=== PATIENT | male | born 1960 | race Caucasian/White ===

== ENCOUNTER 2016-05-18 02:21 | Emergency (ER) | payer OTHER ==
[~2016-05-18 02:21] MED LIST: AMANTADINE100 MG PO; ASPIRIN325 MG PO; BACLOFEN20 MG PO; CITALOPRAM HYDR10 MG PO; COUMADIN5 MG PO; DANTRIUM25 MG PO; DILAUDID8 MG PO; DITROPAN EQUIVAL5 MG PO; FLUOXETINE HCL20 MG PO; HYDROCHLOROTHIA25 MG PO; LEVOFLOXACIN250 MG PO; MACRODANTIN50 MG PO; METHADONE HCL10 MG PO; MORPHINE SULFAT30 M4 PO; MORPHINE SULFAT30 MG PO; MYCOSTATIN15 GM TOP; NAPROSYN250 MG PO; NAPROXEN250 MG PO; NEURONTIN100 MG PO; ZANAFLEX4 MG PO
--- NOTE | 2016-05-18 08:26 | ED CLINICAL REPORT ---
Clinical Report - Physicians/Mid Levels [facility] [address] 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 Arrived- By ambulance. Historian- patient and EMS personnel. HISTORY OF PRESENT ILLNESS Chief Complaint: Whole body pain/MS flare. This started yesterday about 24 hours ago and is still present. At its maximum, severity described as moderate. When seen in the E.D., severity described as moderate. Modifying factors. Not worsened by anything. Not relieved by anything. No current or associated symptoms. Similar symptoms previously: Many times. Recent medical care: Not recently seen/assessed. REVIEW OF SYSTEMS No fever, sore throat, sinus drainage, nasal congestion or cough. No difficulty breathing, chest pain, abdominal pain, nausea or vomiting. No diarrhea, black stools, bloody stools, chills or difficulty with urination. No skin rash, back pain, calf pain, headache or blackouts. No double vision. No difficulty with ambulation. All systems otherwise negative, except as recorded above. PAST HISTORY Problems: Suprapubic cath. Pulmonary Embolism. Hypertension. Yuen Catheter Replacement. Urinary Retention. Nephrolithiasis. Immunizations. Bowel Obstruction. Multiple Sclerosis. Additional Surgeries: Abdominal surgery to close a hole that had burrowed to his indwelling catheter. Appendectomy. Colonoscopy. Colostomy. Shoulder Surgery. Suprapubic cystostomy. Medications: Aspirin Oral (Tablet 325 mg) 1 tablet. Baclofen Oral 20 mg, every 5 hrs . Dantrolene Sodium Oral 50mg , 3 x daily. Dilaudid Oral (Tablet 8 mg), PRN. FLUoxetine HCl Oral 20 mg, daily. Mophine 30 mg, 3x a day. Neurontin Oral 800mg, BID. Nortriptyline HCl Oral. Oxybutynin Chloride Oral 5 mg, 3x a day. TiZANidine HCl Oral 4 mg, every 5 hrs. Allergies: Copaxone. Definite Severe(rash) Penicillins. Probable Moderate(rash) Pt/ state amoxicillin is okay; PCN allergy as baby.. Quinolones. SOCIAL HISTORY Never smoker. No alcohol use or drug use. ADDITIONAL NOTES The nursing notes have been reviewed. PHYSICAL EXAM Vital Signs: 05/18/2016 02:23 BP: 147/94. HR: 106. RR: 20. O2 saturation: 97%. Temp: 97.8 F. Pain level now: 02/23. Have been reviewed. Appearance: Alert. No acute distress. Eyes: Pupils equal, round and reactive to light. Eyes normal inspection. ENT: Nose normal. Neck: Normal inspection. CVS: Normal heart rate and rhythm. Heart sounds normal. Pulses normal. Respiratory: No respiratory distress. Breath sounds normal. Abdomen: No visible injury. Soft and nontender. (Colostomy site is intact.). Back: No CVA tenderness. Skin: Skin warm and dry. Normal skin color. No rash. Normal skin turgor. Extremities: No lower extremity edema. Neuro: (Grossly oriented.). LABS, X-RAYS, AND EKG Pulse Oximetry: 05/18/2016 02:23 O2 saturation: 97%. (FIO2 - room air). Interpretation: normal. PROGRESS AND PROCEDURES Course of Care: PT is well-known to our ED. He was treated with IV fluids, Dilaudid, fentanyl, Solu-medrol, and morphine for his pain. His blood pressure did drop somewhat after the pain medication, but pt's mentation remained clear, and he did respond to IV fluids. I did not find evidence of any other serious underlying condition. Patient counseled in person regarding the patient's stable condition, diagnosis and need for follow-up. Concerns were addressed. Old medical records reviewed. Disposition: Discharged. Condition: stable and improved. CLINICAL IMPRESSION Acute exacerbation of chronic neuralgia, secondary to MS. INSTRUCTIONS Warnings: GENERAL WARNINGS: Return or contact your physician immediately if your condition worsens or changes unexpectedly, if not improving as expected, or if other problems arise. Your Current Medications: CONTINUE TAKING THE FOLLOWING MEDICATIONS: Aspirin Oral : Tablet 325 mg, 1 tablet. Baclofen Oral : 20 mg every 5 hrs. Dantrolene Sodium Oral : 50mg 3 x daily. Dilaudid Oral : Tablet 8 mg, PRN. FLUoxetine HCl Oral : 20 mg daily. Mophine* : 30 mg 3x a day. Neurontin Oral : 800mg BID. Nortriptyline HCl Oral. Oxybutynin Chloride Oral : 5 mg 3x a day. TiZANidine HCl Oral : 4 mg every 5 hrs. Follow-up: Follow up with your doctor in two days if not better. Understanding of the discharge instructions verbalized by patient and family. (Electronically signed by Eleonora Dee MD 05/24/2016 21:40)
--- NOTE | 2016-05-18 08:26 | ED ORDER SUMMARY ---
..... 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 OrderSheet [facility] VisitID: [id number] [address] [place] [address] 55y, M Registration Date/Time: 05/18/2016 ORDER SHEET Weight: 77.1 kg (estimated) Allergies: Copaxone, Penicillins, Pt/ state amoxicillin is okay; PCN allergy as baby., Quinolones GENERAL ORDERS: MEDICATION ORDERS: IV FLUIDS: Dilaudid IV 1 mg (HIGH ALERT MEDICATION, NOW) (02:36 05/18/2016 Karma GOMEZ) (Ack 2:45 HSoule) (3:46 HSoule) Toradol IV 30 mg (NOW) (:36 05/18/2016 Karma GOMEZ) (Ack 2:45 HSoule) (3:46 HSoule) IV Saline Lock (02:36 05/18/2016 Karma GOMEZ) (Ack 2:45 HSoule) (3:45 HSoule) IV NS : initial bolus 500 mL (1000 mL/hr), then none - (NOW) (03:55 05/18/2016 Karma GOMEZ) (4:00 HSoule) Dilaudid IV 1 mg (HIGH ALERT MEDICATION, NOW) (03:56 05/18/2016 Karma GOMEZ) (4:01 HSoule) Fentanyl IV 100 mcg (HIGH ALERT MEDICATION, NOW) (05:09 05/18/2016 Karma GOMEZ) (Ack 5:11 HSoule) (5:32 HSoule) Morphine IV 10 mg (HIGH ALERT MEDICATION, NOW) (06:31 05/18/2016 Karma GOMEZ) (Ack 6:58 HSoule) (7:02 HSoule) Solu-MEDROL IV 125 mg (NOW) (06:32 05/18/2016 Karma GOMEZ) (Ack 6:58 HSoule) (7:02 HSoule) IV NS with Normal Saline 1 Liter: initial bolus none -, then 1000 mL/hr for X1 (NOW); Stat (07:11 05/18/2016 HSoule verbal order read back to Karma GOMEZ) (7:19 HSoule) ORDER SHEET NOTES: [Electronically signed by Suzie Concepcion R.N. (19:46 05/18/2016)] [Electronically signed by Eleonora Dee MD (21:40 05/24/2016)] [Electronically locked/signed by Suzie Concepcion R.N. (19:46 05/18/2016)]
--- NOTE | 2016-05-18 08:26 | ED NURSING NOTES ---
Clinical Report - Nurses Formerly [facility] [address] [place] [address] 05/18/2016 2:22 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 Triage time 02:May 18 2016. Acuity: LEVEL 3. Chief Complaint: (All over body pain, nausea). SEPSIS SCREEN: Sepsis Screen: negative. Negative (no infection suspected/documented). Heart rate greater than 90. MIGUEL COMA SCORE: Miguel Coma Scale: 15- eyes open spontaneously (4); best verbal response- oriented x 4 (5); best motor response- obeys commands (6). --02: Helen Tejada 02:23 05/18/16. BP: 147/94. HR: 106. RR: 20. O2 saturation: 97% on room air. Temp: 97.8 F (oral). Pain level now: 02/23. --02: Helen Tejada. Weight: 77.1 kg estimated. Height/Length: 70 inches Per Patient. BMI: 24.4. --02: Helen Tejada. Medications Aspirin Oral (Tablet 325 mg) 1 tablet. Baclofen Oral 20 mg, every 5 hrs . Dantrolene Sodium Oral 50mg , 3 x daily. Dilaudid Oral (Tablet 8 mg), PRN. FLUoxetine HCl Oral 20 mg, daily. Mophine 30 mg, 3x a day. Neurontin Oral 800mg, BID. Nortriptyline HCl Oral. Oxybutynin Chloride Oral 5 mg, 3x a day. TiZANidine HCl Oral 4 mg, every 5 hrs. --02:25 Helen Tejada. Allergies Copaxone. Definite Severe(rash) Penicillins. Probable Moderate(rash) Pt/ state amoxicillin is okay; PCN allergy as baby.. Quinolones. --02:25 Helen Tejada. Medication/allergy information source: the patient. --02: Helen Tejada. History Arrived by EMS. Historian: EMS and patient. This started yesterday. ( Patient states that since yesterday he began having all over body pain. He reports some nausea and states he has not been able to sleep. Patient has a history of MS and is bed bound.). PAST MEDICAL HX: Immunizations: up-to-date. SOCIAL HX: Never smoker. No alcohol use or drug use. No infectious disease exposure. ABUSE ASSESSMENT: No report of abuse. FALL RISK ASSESSMENT: Fall risk assessment completed. No fall risk identified. NUTRITIONAL RISK ASSESSMENT: The nutritional risk assessment revealed no deficiencies. FUNCTIONAL ASSESSMENT: Functional assessment: no impairments noted. LEARNING NEEDS ASSESSMENT: The learning needs assessment revealed no barriers. SKIN INTEGRITY ASSESSMENT: Skin integrity risk assessment completed. No skin integrity risk identified. --02:27 Helen Tejada. PROBLEMS: Suprapubic cath. Hypotension. Dehydration. Acute Pain. Pulmonary Embolism. Hypertension. Yuen Catheter Replacement. Hypokalemia. Leukocytosis. Nephrolithiasis. Vomiting. UTI - Urinary Tract Infection. Bowel Obstruction. Multiple Sclerosis. --:28 Helen Tejada. ADDITIONAL SURGERIES: Abdominal surgery to close a hole that had burrowed to his indwelling catheter. Appendectomy. Colonoscopy. Colostomy. Shoulder Surgery. Suprapubic cystostomy. --:28 Helen Tejada. Interventions ID band on patient. To treatment room. --: Helen Tejada. PHYSICAL ASSESSMENT To room via stretcher. GENERAL / NEURO / PSYCH: Alert. Oriented X 4. Appears in pain. HEENT: Mucous membranes are pink. RESPIRATORY: Respirations not labored. CVS: Cardiac rhythm: sinus tachycardia. GI / : Abdomen soft and nontender. SKIN: Skin is warm and dry. --:28 Helen Tejada. NURSING PROGRESS NOTES Pulse oximeter and NIBP monitor placed on patient; monitor alarms on. Patient gowned. Warming measures: blanket applied. Reassurance given to the patient. Two patient identifiers checked. Call light placed in reach. Side rails up x 1. Bed placed in lowest position. Brakes of bed on. Patient ready for evaluation- chart flagged. --:29 Helen Tejada 03:11 05/18/2016 Two (2) unsuccessful IV access attempts including the right antecubital space and hand. Applied bandaid. --03:21 Helen Tejada ( IV access attempted but unsuccessful. Charge nurse at bedside attempting IV access.). --03:23 Helen Tejada 03:28 05/18/2016 One (1) unsuccessful IV access attempt including the left hand. --03:32 Shayla Clayton R.N. 03:30 05/18/2016 Site #1 started via IV in the right hand with an 22g angiocath; one attempt. Blood drawn. Saline lock flushed with 10 mL saline (red top blood tube drawn at time of IV start). --03:32 Shayla Clayton R.N. 03:36 05/18/2016 Dilaudid (HYDROmorphone HCl PF) IVP 1 mg given over 1 minute(s) via site #1. Allergies verified, confirmed 5 rights and sedative warning given to the patient. IV patency established. IV site checked: no pain, redness, or swelling. IV flushed thoroughly pre- and post-medication administration. IVP given by RN. --03:46 Helen Tejada 03:36 05/18/2016 Toradol IVP 30 mg given over 1 minute(s) via site #1. Allergies verified and confirmed 5 rights. IV patency established. IV site checked: no pain, redness, or swelling. IV flushed thoroughly pre- and post-medication administration. IVP given by RN. --03:46 Helen Tejada ( Patient states he is still in pain. Provider notified.). --03:50 Helen Tejada 03:50 05/18/16. BP: 156/99. HR: 105. RR: 18. O2 saturation: 97% on room air. Pain level now: 910. --03:54 Heeln Tejada 04:00 05/18/2016 Started bag #1 1000 mL IV Fluids IV NS (Saline); at 1000 mL/hr over 30 minute(s) via site #1 via IV pump. Allergies verified and confirmed 5 rights. IV patency established. IV site checked: no pain, redness, or swelling. IV flushed thoroughly pre- and post-medication administration. --04:00 Helen Tejada 04:01 05/18/2016 Dilaudid (HYDROmorphone HCl PF) IVP 1 mg given over 1 minute(s) via site #1. Allergies verified, confirmed 5 rights and sedative warning given to the patient. IV patency established. IV site checked: no pain, redness, or swelling. IV flushed thoroughly pre- and post-medication administration. IVP given by RN. --04:01 Helen Tejada ( pt in bed states that pain has improved but is still present.). --04:36 Rob Richardson R.N. 05:02 05/18/16. BP: 146/93. HR: 94. RR: 20. O2 saturation: 97% on room air. Pain level now: 12/24. --05:02 Helen Tejada 04:30 05/18/2016 IV Fluids IV NS Discontinued: bag #1 discontinued. Total amount infused: 500 mL. IV patency established. IV site checked: no pain, redness, or swelling. IV flushed thoroughly. --06:58 Helen Tejada 05:22 05/18/2016 Fentanyl IVP 100 mcg given over 1 minute(s) via site #1. Allergies verified, confirmed 5 rights and sedative warning given to the patient. IV patency established. IV site checked: no pain, redness, or swelling. IV flushed thoroughly pre- and post-medication administration. IVP given by RN. --05:32 Helen Tejada 07:02 05/18/2016 Morphine IVP 10 mg given over 1 minute(s) via site #1. Allergies verified, confirmed 5 rights and sedative warning given to the patient. IV patency established. IV site checked: no pain, redness, or swelling. IV flushed thoroughly pre- and post-medication administration. IVP given by RN. --07:02 Helen Tejada 07:02 05/18/2016 SOLU-MEDROL (MethylPREDNISolone Sodium Succ) IVP 125 mg given over 1 minute(s) via site #1. Allergies verified and confirmed 5 rights. IV patency established. IV site checked: no pain, redness, or swelling. IV flushed thoroughly pre- and post-medication administration. IVP given by RN. --07:02 Helen Tejada 07:03 05/18/16. BP: 60/46. HR: 93. RR: 18. O2 saturation: 96% on room air. Pain level now: 10/24. Additional comments: Provider notifed, fluids started. Patient is talking and states he feels better. . --07:08 Helen Tejada 07:08 05/18/16. BP: 67/43. --07:08 Helen Tejada 07:10 05/18/16. BP: 67/53. HR: 86. RR: 20. O2 saturation: 99% on nasal cannula at 2 liters/minute. Pain level now: 09/23. --07:10 Helen Tejada 06:45 05/18/16. ( Patient ostomy bag leaking, patient cleaned up and linens changed. Patient skin cleansed and new ostomy bag and seal placed.). --07:15 Helen Tejada 07:15 05/18/16. BP: 80/53. HR: 86. RR: 20. O2 saturation: 98% on room air. --07:16 Helen Tejada RESPIRATORY: No respiratory distress. SKIN: Skin is warm and dry. ( Provider at bedside, patient stable). --07:17 Helen Tejada 07:17 05/18/16. BP: 87/61. HR: 90. RR: 20. O2 saturation: 98%. --07:18 Helen Tejada 07:19 05/18/2016 Started bag #1 1000 mL IV Fluids IV NS (Saline); at 1000 mL/hr over 1 hour(s) via site #1 via IV pump. Allergies verified and confirmed 5 rights. IV patency established. IV site checked: no pain, redness, or swelling. IV flushed thoroughly pre- and post-medication administration. --07:19 Helen Tejada 07:29 05/18/16. BP: 82/52. HR: 82. RR: 20. O2 saturation: 98% on nasal cannula at 2 liters/minute. Pain level now: 08/24. --07:30 Helen Tejada Care transferred and report given (Suzie Dunn). --07:39 Helen Tejada 07:40 05/18/16. BP: 82/54. HR: 87. RR: 20. O2 saturation: 97% on nasal cannula at 2 liters/minute. --07:40 Helen Tejada ( Provider aware of vitals. Patient receiving fluids. Patient alert and talking.). --07:40 Helen Tejada 08:16 05/18/16. BP: 78/51. HR: 88. RR: 18. O2 saturation: 100% on nasal cannula at 3 liters/minute. Pain level now: 07/24. --08:17 Suzie Concepcion R.N. 08:17 05/18/2016 IV Fluids IV NS Discontinued: bag #1 infused. Total amount infused: 1000 mL. IV patency established. IV site checked: no pain, redness, or swelling. IV flushed thoroughly. --08:17 Suzie Concepcion R.N. 08:18 05/18/2016 Started bag #1 1000 mL IV Fluids IV NS (Saline); at 999 mL/hr over 1 hour(s) via site #1 via IV pump. Allergies verified and confirmed 5 rights. IV patency established. IV site checked: no pain, redness, or swelling. IV flushed thoroughly pre- and post-medication administration. --08:18 Suzie Concepcion R.N. 08:19 05/18/16. RESPIRATORY: Denies difficulty breathing. No respiratory distress. SKIN: Skin is warm and dry. Skin color within normal limits. ( Pt asking for ice cream..). --08:19 Suzie Concepcion R.N. 08:54 05/18/16. BP: 93/53. HR: 81. RR: 16. O2 saturation: 98% on nasal cannula at 2 liters/minute. --08:55 Suzie Concepcion R.N. 10:30 05/18/2016 Site #1 removed upon discharge. Catheter intact. Manual pressure and bandage applied. --19:46 Suzie Concepcion R.N. 10:30 05/18/2016 IV Fluids IV NS Discontinued: bag #2 infused upon discharge. Total amount infused: 1000 mL. IV patency established. IV site checked: no pain, redness, or swelling. IV flushed thoroughly. --19:45 Suzie Concepcion R.N. DISPOSITION / DISCHARGE 10:23 05/18/16. BP: 103/67. HR: 80. RR: 16. O2 saturation: 96% on nasal cannula. Temp: 98 F (oral). --10:24 Suzie Concepcion R.N. Departure time: 1035May 18 2016. Condition at departure: improved and stable. No learning barriers present. Discharge instructions provided and reviewed with the patient. Patient verbalized understanding. Written instructions provided in [place]an. The patient was discharged by the physician. He was discharged home. He left the Emergency Department via private vehicle and on a stretcher. --19:45 Suzie Concepcion R.N. Locked/Released at 05/18/2016 19:46 by Suzie Concepcion R.N.
--- NOTE | 2016-05-18 08:26 | ED ORDER SUMMARY ---
..... 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 OrderSheet [facility] VisitID: [id number] [address] [place] [address] 55y, M Registration Date/Time: 05/18/2016 ORDER SHEET Weight: 77.1 kg (estimated) Allergies: Copaxone, Penicillins, Pt/ state amoxicillin is okay; PCN allergy as baby., Quinolones GENERAL ORDERS: MEDICATION ORDERS: IV FLUIDS: Dilaudid IV 1 mg (HIGH ALERT MEDICATION, NOW) (02:36 05/18/2016 Karma GOMEZ) (Ack 2:45 HSoule) (3:46 HSoule) Toradol IV 30 mg (NOW) (:36 05/18/2016 Karma GOMEZ) (Ack 2:45 HSoule) (3:46 HSoule) IV Saline Lock (02:36 05/18/2016 Karma GOMEZ) (Ack 2:45 HSoule) (3:45 HSoule) IV NS : initial bolus 500 mL (1000 mL/hr), then none - (NOW) (03:55 05/18/2016 Karma GOMEZ) (4:00 HSoule) Dilaudid IV 1 mg (HIGH ALERT MEDICATION, NOW) (03:56 05/18/2016 Karma GOMEZ) (4:01 HSoule) Fentanyl IV 100 mcg (HIGH ALERT MEDICATION, NOW) (05:09 05/18/2016 Karma GOMEZ) (Ack 5:11 HSoule) (5:32 HSoule) Morphine IV 10 mg (HIGH ALERT MEDICATION, NOW) (06:31 05/18/2016 Karma GOMEZ) (Ack 6:58 HSoule) (7:02 HSoule) Solu-MEDROL IV 125 mg (NOW) (06:32 05/18/2016 Karma GOMEZ) (Ack 6:58 HSoule) (7:02 HSoule) IV NS with Normal Saline 1 Liter: initial bolus none -, then 1000 mL/hr for X1 (NOW); Stat (07:11 05/18/2016 HSoule verbal order read back to Karma GOMEZ) (7:19 HSoule) ORDER SHEET NOTES: [Electronically signed by Suzie Concepcion R.N. (19:46 05/18/2016)] [Electronically signed by Eleonora Dee MD (21:40 05/24/2016)] [Electronically locked/signed by Suzie Concepcion R.N. (19:46 05/18/2016)]
--- NOTE | 2016-05-24 21:40 | ED MAR SUMMARY ---
..... Medication Administration Record [facility] [address] [place] [address] 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 Visit ID: [id number] 55y, M Weight: 77.1 kg Height/Length: 70 in BMI: 24.4 ALLERGIES: Copaxone, Penicillins, Pt/ state amoxicillin is okay; PCN allergy as baby., Quinolones Given 03:36 05/18/2016 Helen Tejada, Medication Administered: DILAUDID [IVP] (HYDROMORPHONE HCL PF), Dose: 1 mg IVP over 1 minute(s), Site: #1 right hand. Medication Ordered: Dilaudid IV 1 mg (HIGH ALERT MEDICATION, NOW). Given 03:36 05/18/2016 Helen Tejada, Medication Administered: TORADOL [IVP], Dose: 30 mg IVP over 1 minute(s), Site: #1 right hand. Medication Ordered: Toradol IV 30 mg (NOW). Start 04:00 05/18/2016 Helen Tejada,, Stop 04:30 05/18/2016 Helen Tejada, Medication Administered: IV NS (SALINE), Dose: IV Fluids over 30 minute(s), Rate: 1000 mL/hr, Dispensed: 1000 mL bag, Site: #1 right hand. Medication Ordered: IV NS : initial bolus 500 mL (1000 mL/hr), then none - (NOW). Given 04:05/18/2016 Helen Tejada, Medication Administered: DILAUDID [IVP] (HYDROMORPHONE HCL PF), Dose: 1 mg IVP over 1 minute(s), Site: #1 right hand. Medication Ordered: Dilaudid IV 1 mg (HIGH ALERT MEDICATION, NOW). Given 05:22 05/18/2016 Helen Tejada, Medication Administered: FENTANYL [IVP], Dose: 100 mcg IVP over 1 minute(s), Site: #1 right hand. Medication Ordered: Fentanyl IV 100 mcg (HIGH ALERT MEDICATION, NOW). Given 07:05/18/2016 Helen Tejada, Medication Administered: MORPHINE [IVP], Dose: 10 mg IVP over 1 minute(s), Site: #1 right hand. Medication Ordered: Morphine IV 10 mg (HIGH ALERT MEDICATION, NOW). Given 07:02 05/18/2016 Helen Tejada, Medication Administered: SOLU-MEDROL [IVP] (METHYLPREDNISOLONE SODIUM SUCC), Dose: 125 mg IVP over 1 minute(s), Site: #1 right hand. Medication Ordered: Solu-MEDROL IV 125 mg (NOW). Start 07:19 05/18/2016 Helen Tejada,, Stop 08:17 05/18/2016 Suzie Concepcion, R.N. Medication Administered: IV NS (SALINE), Dose: IV Fluids over 1 hour(s), Rate: 1000 mL/hr, Dispensed: 1000 mL bag, Site: #1 right hand. Medication Ordered: IV NS with Normal Saline 1 Liter: initial bolus none -, then 1000 mL/hr for X1 (NOW); Stat. Start 08:18 05/18/2016 Suzie Concepcion, R.N., Stop 10:30 05/18/2016 Suzie Concepcion, R.N. Medication Administered: IV NS (SALINE), Dose: IV Fluids over 1 hour(s), Rate: 999 mL/hr, Dispensed: 1000 mL bag, Site: #1 right hand. Medication Ordered: IV NS with Normal Saline 1 Liter: initial bolus none -, then 1000 mL/hr for X1 (NOW); Stat.
--- NOTE | 2016-05-24 21:40 | ED MED RECONCILIATION SUMMARY ---
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 Medication Reconciliation Report [facility] VisitID: [id number] [address] [place] [address] 55y, M Registration Date/Time: 05/18/2016 Weight: 77.1 kg Height/Length: 70 in. BMI: 24.4 ALLERGIES: Copaxone, Penicillins, Pt/ state amoxicillin is okay; PCN allergy as baby., Quinolones The patient's Home Medications are listed below: CONTINUE TAKING THE FOLLOWING MEDICATIONS: Aspirin Oral (325 mg) 1 tablet Baclofen Oral 20 mg, every 5 hrs Dantrolene Sodium Oral 50mg , 3 x daily Dilaudid Oral (8 mg), PRN FLUoxetine HCl Oral 20 mg, daily Mophine 30 mg, 3x a day Neurontin Oral 800mg, BID Nortriptyline HCl Oral Oxybutynin Chloride Oral 5 mg, 3x a day TiZANidine HCl Oral 4 mg, every 5 hrs The source(s) of the original Home Medication information: patient The following Medications were given to the patient in the Emergency Department: Dilaudid [IVP] IVP 1 mg, administered: 05/18/2016 3:36:00 AM Toradol [IVP] IVP 30 mg, administered: 05/18/2016 3:36:00 AM IV NS IV Fluids bolus 0, then 1000 mL/hr, administered: 05/18/2016 4:00:00 AM Dilaudid [IVP] IVP 1 mg, administered: 05/18/2016 4:01:00 AM Fentanyl [IVP] IVP 100 mcg, administered: 05/18/2016 5:22:00 AM Morphine [IVP] IVP 10 mg, administered: 05/18/2016 7:02:00 AM SOLU-MEDROL [IVP] IVP 125 mg, administered: 05/18/2016 7:02:00 AM IV NS IV Fluids bolus 0, then 1000 mL/hr, administered: 05/18/2016 7:19:00 AM IV NS IV Fluids bolus 0, then 999 mL/hr, administered: 05/18/2016 8:18:00 AM The following Medications were prescribed to the patient: None.
--- NOTE | 2016-05-24 21:40 | ED MAR SUMMARY ---
..... Medication Administration Record [facility] [address] 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 Medication Ordered: Dilaudid IV 1 mg (HIGH ALERT MEDICATION, NOW). Given 03:36 05/18/2016 Helen Tejada, Medication Administered: TORADOL [IVP], Dose: 30 mg IVP over 1 minute(s), Site: #1 right hand. Medication Ordered: Toradol IV 30 mg (NOW). Start 04:00 05/18/2016 Helen Tejada,, Stop 04:30 05/18/2016 Helen Tejada, Medication Administered: IV NS (SALINE), Dose: IV Fluids over 30 minute(s), Rate: 1000 mL/hr, Dispensed: 1000 mL bag, Site: #1 right hand. Medication Ordered: IV NS : initial bolus 500 mL (1000 mL/hr), then none - (NOW). Given 04:05/18/2016 Helen Tejada, Medication Administered: DILAUDID [IVP] (HYDROMORPHONE HCL PF), Dose: 1 mg IVP over 1 minute(s), Site: #1 right hand. Medication Ordered: Dilaudid IV 1 mg (HIGH ALERT MEDICATION, NOW). Given 05:22 05/18/2016 Helen Tejada, Medication Administered: FENTANYL [IVP], Dose: 100 mcg IVP over 1 minute(s), Site: #1 right hand. Medication Ordered: Fentanyl IV 100 mcg (HIGH ALERT MEDICATION, NOW). Given 07:05/18/2016 Helen Tejada, Medication Administered: MORPHINE [IVP], Dose: 10 mg IVP over 1 minute(s), Site: #1 right hand. Medication Ordered: Morphine IV 10 mg (HIGH ALERT MEDICATION, NOW). Given 07:02 05/18/2016 Helen Tejada, Medication Administered: SOLU-MEDROL [IVP] (METHYLPREDNISOLONE SODIUM SUCC), Dose: 125 mg IVP over 1 minute(s), Site: #1 right hand. Medication Ordered: Solu-MEDROL IV 125 mg (NOW). Start 07:19 05/18/2016 Helen Tejada,, Stop 08:17 05/18/2016 Suzie Concepcion, R.N. Medication Administered: IV NS (SALINE), Dose: IV Fluids over 1 hour(s), Rate: 1000 mL/hr, Dispensed: 1000 mL bag, Site: #1 right hand. Medication Ordered: IV NS with Normal Saline 1 Liter: initial bolus none -, then 1000 mL/hr for X1 (NOW); Stat. Start 08:18 05/18/2016 Suzie Concepcion, R.N., Stop 10:30 05/18/2016 Suzie Concepcion, R.N. Medication Administered: IV NS (SALINE), Dose: IV Fluids over 1 hour(s), Rate: 999 mL/hr, Dispensed: 1000 mL bag, Site: #1 right hand. Medication Ordered: IV NS with Normal Saline 1 Liter: initial bolus none -, then 1000 mL/hr for X1 (NOW); Stat.
--- NOTE | 2016-05-24 21:40 | ED DISCHARGE INSTRUCTIONS ---
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 General Instructions [facility] VisitID: [id number] [address] [place] [address] 55y, M Registration Date/Time: 05/18/2016 Acute exacerbation of chronic neuralgia, secondary to MS. INSTRUCTIONS Warnings: GENERAL WARNINGS: Return or contact your physician immediately if your condition worsens or changes unexpectedly, if not improving as expected, or if other problems arise. Your Current Medications: CONTINUE TAKING THE FOLLOWING MEDICATIONS: Aspirin Oral : Tablet 325 mg, 1 tablet. Baclofen Oral : 20 mg every 5 hrs. Dantrolene Sodium Oral : 50mg 3 x daily. Dilaudid Oral : Tablet 8 mg, PRN. FLUoxetine HCl Oral : 20 mg daily. Mophine* : 30 mg 3x a day. Neurontin Oral : 800mg BID. Nortriptyline HCl Oral. Oxybutynin Chloride Oral : 5 mg 3x a day. TiZANidine HCl Oral : 4 mg every 5 hrs. Follow-up: Follow up with your doctor in two days if not better. Understanding of the discharge instructions verbalized by patient and family. (Electronically signed by Eleonora Dee MD 05/24/2016 21:40)
--- NOTE | 2016-05-24 21:40 | ED MED RECONCILIATION SUMMARY ---
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 Medication Reconciliation Report [facility] VisitID: [id number] [address] [place] [address] 55y, M Registration Date/Time: 05/18/2016 Weight: 77.1 kg Height/Length: 70 in. BMI: 24.4 ALLERGIES: Copaxone, Penicillins, Pt/ state amoxicillin is okay; PCN allergy as baby., Quinolones The patient's Home Medications are listed below: CONTINUE TAKING THE FOLLOWING MEDICATIONS: Aspirin Oral (325 mg) 1 tablet Baclofen Oral 20 mg, every 5 hrs Dantrolene Sodium Oral 50mg , 3 x daily Dilaudid Oral (8 mg), PRN FLUoxetine HCl Oral 20 mg, daily Mophine 30 mg, 3x a day Neurontin Oral 800mg, BID Nortriptyline HCl Oral Oxybutynin Chloride Oral 5 mg, 3x a day TiZANidine HCl Oral 4 mg, every 5 hrs The source(s) of the original Home Medication information: patient The following Medications were given to the patient in the Emergency Department: Dilaudid [IVP] IVP 1 mg, administered: 05/18/2016 3:36:00 AM Toradol [IVP] IVP 30 mg, administered: 05/18/2016 3:36:00 AM IV NS IV Fluids bolus 0, then 1000 mL/hr, administered: 05/18/2016 4:00:00 AM Dilaudid [IVP] IVP 1 mg, administered: 05/18/2016 4:01:00 AM Fentanyl [IVP] IVP 100 mcg, administered: 05/18/2016 5:22:00 AM Morphine [IVP] IVP 10 mg, administered: 05/18/2016 7:02:00 AM SOLU-MEDROL [IVP] IVP 125 mg, administered: 05/18/2016 7:02:00 AM IV NS IV Fluids bolus 0, then 1000 mL/hr, administered: 05/18/2016 7:19:00 AM IV NS IV Fluids bolus 0, then 999 mL/hr, administered: 05/18/2016 8:18:00 AM The following Medications were prescribed to the patient: None.
--- NOTE | 2016-05-24 21:40 | ED DISCHARGE INSTRUCTIONS ---
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 General Instructions [facility] VisitID: [id number] [address] [place] [address] 55y, M Registration Date/Time: 05/18/2016 Acute exacerbation of chronic neuralgia, secondary to MS. INSTRUCTIONS Warnings: GENERAL WARNINGS: Return or contact your physician immediately if your condition worsens or changes unexpectedly, if not improving as expected, or if other problems arise. Your Current Medications: CONTINUE TAKING THE FOLLOWING MEDICATIONS: Aspirin Oral : Tablet 325 mg, 1 tablet. Baclofen Oral : 20 mg every 5 hrs. Dantrolene Sodium Oral : 50mg 3 x daily. Dilaudid Oral : Tablet 8 mg, PRN. FLUoxetine HCl Oral : 20 mg daily. Mophine* : 30 mg 3x a day. Neurontin Oral : 800mg BID. Nortriptyline HCl Oral. Oxybutynin Chloride Oral : 5 mg 3x a day. TiZANidine HCl Oral : 4 mg every 5 hrs. Follow-up: Follow up with your doctor in two days if not better. Understanding of the discharge instructions verbalized by patient and family. (Electronically signed by Eleonora Dee MD 05/24/2016 21:40)
== END 2016-05-18 10:30 | disposition home or self-care (01) ==
LOC: ED SRH 02:21
DX: M79.2 Neuralgia and neuritis, unspecified (principal); G35 Multiple sclerosis; I10 Essential (primary) hypertension; Z79.899 Other long term (current) drug therapy; Z88.0 Allergy status to penicillin; Z88.8 Allergy status to other drugs, medicaments and biological substances

== ENCOUNTER 2016-07-26 13:12 | Emergency (ER) | payer OTHER ==
--- NOTE | 2016-07-26 16:36 | DIAGNOSTIC IMAGING REPORT ---
PROCEDURE: ABDOMEN/PELVIS WITH CONTRAST CLINICAL INDICATION: ABDOMINAL PAIN TECHNIQUE: 125 ml of Isovue 300 were injected intravenously and axial images were obtained of the abdomen and pelvis with sagittal and coronal reformations. COMPARISON: Multiple prior studies including the most recent from 03/30/2016. FINDINGS: ABDOMEN: Mild bibasilar atelectasis. Normal sized heart. No hiatal hernia. The liver, gallbladder, adrenal glands, kidneys, pancreas and spleen are stable. Tiny dependent gallstones, small duodenal diverticulum, fatty replaced pancreas, cortical cyst in the left kidney. Air fluid levels in the stomach. Right abdominal ileostomy without small bowel obstruction. Status post colectomy. The abdominal aorta is normal in its course and caliber. Minor atherosclerosis. There are no suspicious calcifications, retroperitoneal adenopathy or masses. No free fluid or inflammation. PELVIS: Suprapubic catheter present. Small amount of irregular linear subcutaneous thickening in the midline and extending left lateral to the suprapubic catheter tract suggestive of prior fistula tract. Similar appearance and extent compared to the previous study. The pelvic small bowel loops are normal. No adenopathy, free fluid, or pelvic mass. Chronic compression fracture of T12 and L1. Sacroiliac joint ankylosis. Diffuse muscular atrophy. IMPRESSION: 1. No acute process. 2. Stable surgical changes of colectomy with ileostomy, suprapubic catheter, and anterior subcutaneous suprapubic fistulectomy. 3. Cholelithiasis. 4. Findings called to the emergency room. All CT scans at this facility use dose modulation, iterative reconstruction, and/or weight-based dosing when appropriate to reduce radiation dose to as low as reasonably achievable.
--- NOTE | 2016-07-26 17:47 | ED ORDER SUMMARY ---
..... 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 OrderSheet [facility] VisitID: [id number] [place] [address] 56y, M Registration Date/Time: 07/26/2016 ORDER SHEET Weight: 73.0 kg (stated) Allergies: Copaxone, Penicillins, Pt/ state amoxicillin is okay; PCN allergy as baby., Quinolones GENERAL ORDERS: CT Abd/Pel w Cont (No) (pending) Urgent (14:02 07/26/2016 Valentina GOMEZ) (Ack 14:05 Lavelle) (15:57 LSullivan R.N.) CBC w Diff Urgent (14:02 07/26/2016 Valentina GOMEZ) (Ack 14:05 Lavelle) (14:05 LSullivan R.N.) CMP Urgent (14:07/26/2016 Valentina GOMEZ) (Ack 14:05 Lavelle) (14:06 LSullivan R.N.) Amylase Urgent (14:02 07/26/2016 Valentina GOMEZ) (Ack 14:05 Lavelle) (14:06 LSullivan R.N.) Lipase Urgent (14:02 07/26/2016 Valentina GOMEZ) (Ack 14:05 Lavelle) (14:06 LSullivan R.N.) MEDICATION ORDERS: IV FLUIDS: IV Saline Lock (13:53 07/26/2016 LSullivan R.N. per protocol) (13:54 LSullivan R.N.) IV NS : initial bolus none -, then 250 mL/hr for 4h (NOW); Routine (14:02 07/26/2016 Valentina GOMEZ) (14:14 LSullivan R.N.) Dilaudid IV 0.5 mg (NOW) (14:02 07/26/2016 Valentina GOMEZ) (14:15 LSullivan R.N.) Zofran IV 4 mg (NOW) (14:02 07/26/2016 Valentina GOMEZ) (14:15 LSullivan R.N.) ORDER SHEET NOTES: [Electronically signed by Sara Manuel R.N. (19:07/26/2016)] [Electronically signed by Angel Grimes MD (07:38 07/30/2016)] [Electronically locked/signed by Sara Manuel R.N. (:07/26/2016)]
--- NOTE | 2016-07-26 17:47 | ED NURSING NOTES ---
Clinical Report - [facility] [address] [place] [address] 07/26/2016 13:12 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 TRIAGE Triage time 13:23. Acuity: LEVEL 3. Chief Complaint: ABDOMINAL PAIN and (RLQ). Alert. SEPSIS SCREEN: Sepsis Screen. Negative (no infection suspected/documented). --13:27 Sara Manuel R.N. 13:21 07/26/16. BP: 161/99. HR: 103. RR: 18. O2 saturation: 99%. Temp: 98.7 F. Pain level now: 12/24. --13:27 Sara Manuel R.N. Weight: 73 kg stated. Height/Length: 70 inches Per Patient. BMI: 23.1. --13:23 Sara Manuel R.N. Medications Aspirin Oral (Tablet 325 mg) 1 tablet. Baclofen Oral 20 mg, every 5 hrs . Dantrolene Sodium Oral 50mg , 3 x daily. Dilaudid Oral (Tablet 8 mg), PRN. FLUoxetine HCl Oral 20 mg, daily. Neurontin Oral 800mg, BID. Nortriptyline HCl Oral. Oxybutynin Chloride Oral 5 mg, 3x a day. TiZANidine HCl Oral 4 mg, every 5 hrs. --13:21 Sara Manuel R.N. Morphine Sulfate Oral 30 mg ER, 3x a day. --13:22 Sara Manuel R.N. Allergies Copaxone. Definite Severe(rash) Penicillins. Probable Moderate(rash) Pt/ state amoxicillin is okay; PCN allergy as baby.. Quinolones. --13:21 Sara Manuel R.N. History Arrived by EMS. Historian: patient. Primary physician (Titus). This started just prior to arrival and today. Treatment [employer]: (Dilaudid 8 mg). SOCIAL HX: Smoker- current status unknown. No alcohol use or drug use. The patient was exposed to MRSA. FUNCTIONAL ASSESSMENT: Functional assessment performed: uses wheelchair and is bed-ridden- this mobility impairment is an ongoing problem. --13:27 Sara Manuel R.N. PROBLEMS: Pharyngitis. Suprapubic cath. Hypotension. Nausea. Dehydration. Acute Pain. Pulmonary Embolism. Hypertension. Yuen Catheter Replacement. Hypokalemia. Leukocytosis. Wound Dehiscence. Urinary Retention. Nephrolithiasis. Vomiting. UTI - Urinary Tract Infection. Abdominal Pain. Bowel Obstruction. Multiple Sclerosis. --13:25 Sara Manuel R.N. ADDITIONAL SURGERIES: Abdominal surgery to close a hole that had burrowed to his indwelling catheter. Appendectomy. Colonoscopy. Colostomy. Shoulder Surgery. Suprapubic cystostomy. --13:26 Sara Manuel R.N. Interventions ID band on patient. To room. --13:27 Sara Manuel R.N. PHYSICAL ASSESSMENT 13:07/26/16. GENERAL / NEURO / PSYCH: Alert. Oriented X 4. Appears in pain. --13:27 Sara Manuel R.N. NURSING PROGRESS NOTES 13:07/26/16. Patient identifiers checked. Call light placed in reach. Bed placed in lowest position. Patient ready for evaluation- chart flagged. --13:27 Sara Manuel R.N. 13:44 07/26/2016 Site #1 started via IV in the right hand with an 22g angiocath, with aseptic technique and good blood return; one attempt. Blood drawn: rainbow set. Labeled in the presence of the patient and sent to the lab. Saline lock flushed with 10 mL saline. --13:54 Sara Manuel R.N. 14:12 07/26/2016 Zofran (Ondansetron HCl) IVP 4 mg given over 2 minute(s) via site #1. Allergies verified and confirmed 5 rights. --14:15 Sara Manuel R.N. 14:14 07/26/2016 Started bag #1 1000 mL IV Fluids IV NS (Saline); at 250 mL/hr via site #1 via IV pump. Confirmed 5 rights. --14:14 Sara Manuel R.N. 14:15 07/26/2016 Dilaudid (HYDROmorphone HCl PF) IVP 0.5 mg given over 1 minute(s) via site #1. Confirmed 5 rights and sedative warning given. --14:15 Sara Manuel R.N. 15:57 07/26/2016 Dilaudid (HYDROmorphone HCl PF) IVP 0.5 mg given over 1 minute(s) via site #1. (verbal order from ERMD to repeat dose). --15:57 Sara Manuel R.N. 17:45 07/26/2016 IV Fluids IV NS Discontinued: bag #1 infused. Total amount infused: 1000 mL. IV patency established. IV site checked: no pain, redness, or swelling. IV flushed thoroughly. --18:10 Sara Manuel R.N. 18:10 07/26/2016 Site #1 removed upon discharge. Catheter intact. Bandage applied. --18:10 Sara Manuel R.N. DISPOSITION / DISCHARGE 18:09 07/26/16. Condition at departure: improved. No learning barriers present. Discharge instructions provided and reviewed with the patient. Reviewed medication(s) information. Prescription(s) given to the patient. Reviewed referral to family practice for followup. Patient verbalized understanding. Written instructions provided. ( Called pt's at home, she is expecting pt to arrive by ambulance. ETA for ambulance is approximately 7pm.). --18:09 Sara Manuel R.N. 18:07 07/26/16. BP: 134/89. HR: 113. RR: 18. O2 saturation: 98%. Temp: 98.5 F. Pain level now: 08/24. --18:09 Sara Manuel R.N. 18:50. Transported via ambulance by transport team. --18:59 Sara Manuel R.N. Locked/Released at 07/26/2016 19:00 by Sara Manuel R.N.
--- NOTE | 2016-07-26 17:47 | ED ORDER SUMMARY ---
..... 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 OrderSheet [facility] VisitID: [id number] [place] [address] 56y, M Registration Date/Time: 07/26/2016 ORDER SHEET Weight: 73.0 kg (stated) Allergies: Copaxone, Penicillins, Pt/ state amoxicillin is okay; PCN allergy as baby., Quinolones GENERAL ORDERS: CT Abd/Pel w Cont (No) (pending) Urgent (14:02 07/26/2016 Valentina GOMEZ) (Ack 14:05 Lavelle) (15:57 LSullivan R.N.) CBC w Diff Urgent (14:02 07/26/2016 Valentina GOMEZ) (Ack 14:05 Lavelle) (14:05 LSullivan R.N.) CMP Urgent (14:07/26/2016 Valentina GOMEZ) (Ack 14:05 Lavelle) (14:06 LSullivan R.N.) Amylase Urgent (14:02 07/26/2016 Valentina GOMEZ) (Ack 14:05 Lavelle) (14:06 LSullivan R.N.) Lipase Urgent (14:02 07/26/2016 Valentina GOMEZ) (Ack 14:05 Lavelle) (14:06 LSullivan R.N.) MEDICATION ORDERS: IV FLUIDS: IV Saline Lock (13:53 07/26/2016 LSullivan R.N. per protocol) (13:54 LSullivan R.N.) IV NS : initial bolus none -, then 250 mL/hr for 4h (NOW); Routine (14:02 07/26/2016 Valentina GOMEZ) (14:14 LSullivan R.N.) Dilaudid IV 0.5 mg (NOW) (14:02 07/26/2016 Valentina GOMEZ) (14:15 LSullivan R.N.) Zofran IV 4 mg (NOW) (14:02 07/26/2016 Valentina GOMEZ) (14:15 LSullivan R.N.) ORDER SHEET NOTES: [Electronically signed by Sara Manuel R.N. (19:07/26/2016)] [Electronically signed by Angel Grimes MD (07:38 07/30/2016)] [Electronically locked/signed by Sara Manuel R.N. (:07/26/2016)]
--- NOTE | 2016-07-26 17:47 | ED NURSING NOTES ---
Clinical Report - Nurses [facility] [address] [place] [address] 07/26/2016 13:12 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 TRIAGE Triage time 13:23. Acuity: LEVEL 3. Chief Complaint: ABDOMINAL PAIN and (RLQ). Alert. SEPSIS SCREEN: Sepsis Screen. Negative (no infection suspected/documented). --13:27 Sara Manuel R.N. 13:21 07/26/16. BP: 161/99. HR: 103. RR: 18. O2 saturation: 99%. Temp: 98.7 F. Pain level now: 12/24. --13:27 Sara Manuel R.N. Weight: 73 kg stated. Height/Length: 70 inches Per Patient. BMI: 23.1. --13:23 Sara Manuel R.N. Medications Aspirin Oral (Tablet 325 mg) 1 tablet. Baclofen Oral 20 mg, every 5 hrs . Dantrolene Sodium Oral 50mg , 3 x daily. Dilaudid Oral (Tablet 8 mg), PRN. FLUoxetine HCl Oral 20 mg, daily. Neurontin Oral 800mg, BID. Nortriptyline HCl Oral. Oxybutynin Chloride Oral 5 mg, 3x a day. TiZANidine HCl Oral 4 mg, every 5 hrs. --13:21 Sara Manuel R.N. Morphine Sulfate Oral 30 mg ER, 3x a day. --13:22 Sara Manuel R.N. Allergies Copaxone. Definite Severe(rash) Penicillins. Probable Moderate(rash) Pt/ state amoxicillin is okay; PCN allergy as baby.. Quinolones. --13:21 Sara Manuel R.N. History Arrived by EMS. Historian: patient. Primary physician (Titus). This started just prior to arrival and today. Treatment [employer]: (Dilaudid 8 mg). SOCIAL HX: Smoker- current status unknown. No alcohol use or drug use. The patient was exposed to MRSA. FUNCTIONAL ASSESSMENT: Functional assessment performed: uses wheelchair and is bed-ridden- this mobility impairment is an ongoing problem. --13:27 Sara Manuel R.N. PROBLEMS: Pharyngitis. Suprapubic cath. Hypotension. Nausea. Dehydration. Acute Pain. Pulmonary Embolism. Hypertension. Yuen Catheter Replacement. Hypokalemia. Leukocytosis. Wound Dehiscence. Urinary Retention. Nephrolithiasis. Vomiting. UTI - Urinary Tract Infection. Abdominal Pain. Bowel Obstruction. Multiple Sclerosis. --13:25 Sara Manuel R.N. ADDITIONAL SURGERIES: Abdominal surgery to close a hole that had burrowed to his indwelling catheter. Appendectomy. Colonoscopy. Colostomy. Shoulder Surgery. Suprapubic cystostomy. --13:26 Sara Manuel R.N. Interventions ID band on patient. To room. --13:27 Sara Manuel R.N. PHYSICAL ASSESSMENT 13:07/26/16. GENERAL / NEURO / PSYCH: Alert. Oriented X 4. Appears in pain. --13:27 Sara Manuel R.N. NURSING PROGRESS NOTES 13:07/26/16. Patient identifiers checked. Call light placed in reach. Bed placed in lowest position. Patient ready for evaluation- chart flagged. --13:27 Sara Manuel R.N. 13:44 07/26/2016 Site #1 started via IV in the right hand with an 22g angiocath, with aseptic technique and good blood return; one attempt. Blood drawn: rainbow set. Labeled in the presence of the patient and sent to the lab. Saline lock flushed with 10 mL saline. --13:54 Sara Manuel R.N. 14:12 07/26/2016 Zofran (Ondansetron HCl) IVP 4 mg given over 2 minute(s) via site #1. Allergies verified and confirmed 5 rights. --14:15 Sara Manuel R.N. 14:14 07/26/2016 Started bag #1 1000 mL IV Fluids IV NS (Saline); at 250 mL/hr via site #1 via IV pump. Confirmed 5 rights. --14:14 Sara Manuel R.N. 14:15 07/26/2016 Dilaudid (HYDROmorphone HCl PF) IVP 0.5 mg given over 1 minute(s) via site #1. Confirmed 5 rights and sedative warning given. --14:15 Sara Manuel R.N. 15:57 07/26/2016 Dilaudid (HYDROmorphone HCl PF) IVP 0.5 mg given over 1 minute(s) via site #1. (verbal order from ERMD to repeat dose). --15:57 Sara Manuel R.N. 17:45 07/26/2016 IV Fluids IV NS Discontinued: bag #1 infused. Total amount infused: 1000 mL. IV patency established. IV site checked: no pain, redness, or swelling. IV flushed thoroughly. --18:10 Sara Manuel R.N. 18:10 07/26/2016 Site #1 removed upon discharge. Catheter intact. Bandage applied. --18:10 Sara Manuel R.N. DISPOSITION / DISCHARGE 18:09 07/26/16. Condition at departure: improved. No learning barriers present. Discharge instructions provided and reviewed with the patient. Reviewed medication(s) information. Prescription(s) given to the patient. Reviewed referral to family practice for followup. Patient verbalized understanding. Written instructions provided. ( Called pt's at home, she is expecting pt to arrive by ambulance. ETA for ambulance is approximately 7pm.). --18:09 Sara Manuel R.N. 18:07 07/26/16. BP: 134/89. HR: 113. RR: 18. O2 saturation: 98%. Temp: 98.5 F. Pain level now: 08/24. --18:09 Sara Manuel R.N. 18:50. Transported via ambulance by transport team. --18:59 Sara Manuel R.N. Locked/Released at 07/26/2016 19:00 by Sara Manuel R.N.
--- NOTE | 2016-07-26 17:47 | ED CLINICAL REPORT ---
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 Arrived- By private vehicle. Historian- patient. CPT: ER phys charges level 4 (#[id number]). HISTORY OF PRESENT ILLNESS Chief Complaint: ABDOMINAL PAIN. At its maximum, severity described as moderate. When seen in the E.D., severity described as mild. Modifying factors. Not worsened by anything. Not relieved by anything. It is described as "pain" and it is described as located in the right lower quadrant. This started today and is still present. No nausea, vomiting or diarrhea. He has had loss of appetite. No recent travel. Similar symptoms previously: None. Recent medical care: Not recently seen/assessed. REVIEW OF SYSTEMS No constipation, black stools, hematemesis, difficulty with urination or pain with urination. No urinary frequency, fever, sore throat, chest pain or difficulty breathing. No cough, joint pain, skin rash, chills or back pain. All systems otherwise negative, except as recorded above. PAST HISTORY Pharyngitis. Suprapubic cath. Hypotension. Nausea. Dehydration. Acute Pain. Pulmonary Embolism. Hypertension. Yuen Catheter Replacement. Hypokalemia. Leukocytosis. Wound Dehiscence. Urinary Retention. Nephrolithiasis. Vomiting. UTI - Urinary Tract Infection. Abdominal Pain. Bowel Obstruction. Multiple Sclerosis. ADDITIONAL SURGERIES: Abdominal surgery to close a hole that had burrowed to his indwelling catheter. Appendectomy. Colonoscopy. Colostomy. Shoulder Surgery. Suprapubic cystostomy. Medications: Morphine Sulfate Oral 30 mg ER, 3x a day. Aspirin Oral (Tablet 325 mg) 1 tablet. Baclofen Oral 20 mg, every 5 hrs . Dantrolene Sodium Oral 50mg , 3 x daily. Dilaudid Oral (Tablet 8 mg), PRN. FLUoxetine HCl Oral 20 mg, daily. Neurontin Oral 800mg, BID. Nortriptyline HCl Oral. Oxybutynin Chloride Oral 5 mg, 3x a day. TiZANidine HCl Oral 4 mg, every 5 hrs. Allergies: Copaxone. Definite Severe(rash) Penicillins. Probable Moderate(rash) Pt/ state amoxicillin is okay; PCN allergy as baby.. Quinolones. SOCIAL HISTORY No alcohol use or drug use. ADDITIONAL NOTES The nursing notes have been reviewed. PHYSICAL EXAM Vital Signs: 07/26/2016 13:21 BP: 161/99. HR: 103. RR: 18. O2 saturation: 99%. Temp: 98.7 F. Pain level now: 8/10. Appearance: Alert. No acute distress. Eyes: Eyes normal inspection. ENT: Pharynx normal. Neck: Normal inspection. CVS: Normal heart rate and rhythm. Heart sounds normal. Pulses normal. Respiratory: No respiratory distress. Breath sounds normal. Chest nontender. Abdomen: Soft. Mild tenderness in the right lower quadrant. Bowel sounds normal. No mass. Back: Normal inspection. No CVA tenderness. Skin: Normal skin color. No rash. Extremities: Extremities exhibit normal ROM. Neuro: Oriented X 3. LABS, X-RAYS, AND EKG Abdominal CT: No diverticulitis. No acute findings. Stones in the GB: no inflammation. Epiploic appendage superior to ostomy. Abdominal CT performed with IV contrast. The study was independently viewed by me, interpreted by the radiologist and discussed with the radiologist. Laboratory Tests: CBC w Diff: (KIT: 07/26/2016 13:35) ( MsgRcvd 07/26/2016 15:38) Final results Test Result Flag Units (Reference) WHITE BLOOD COUNT 11.7 H K/uL (4.5-11.5) RED BLOOD COUNT 6.37 *H M/uL (4.50-5.90) HEMOGLOBIN 17.2 gm/dL (13.5-17.5) HEMATOCRIT 51.6 % (41.0-53.0) MEAN CELL VOLUME 81 fL (80-100) MEAN CORPUSCULAR HGB 27 pg (26-34) MEAN CORPUSCULAR HGB CONC 33 g/dL (31-37) RED CELL DISTRIBUTION WIDTH 15.9 H % (11.6-14.8) PLATELET COUNT 310 K/uL (150-400) NEUTROPHIL % 84.4 H % (50-75) LYMPH % 9.5 L % (25-40) MONO % 4.7 % (3-14) EOSINOPHIL % 0.6 % (0-4) BASOPHIL % 0.8 % (0-2) RBC MORPHOLOGY 1+ ERYTHROCYTOSIS~~1+ ANISOCYTOSIS CMP: (KIT: 07/26/2016 13:35) ( MsgRcvd 07/26/2016 14:21) Final results Test Result Flag Units (Reference) GLUCOSE 115 H mg/dL (70-110) BUN 17 mg/dL (7-18) CREATININE 0.6 mg/dL (0.6-1.3) Estimated GFR >60 mL/min Estimated GFR- >60 mL/min Note: Persistent reduction over 3 months in eGFR<60 mL/min/1.73 m2 defines CKD. Patients with eGFR values>=60 mL/min/1.73 m2 may also have CKD if evidence ofpersistent proteinuria. Additional information may be foundat www.[email or web address].org. SODIUM 140 mmol/L (136-145) POTASSIUM 3.8 mmol/L (3.5-5.1) CHLORIDE 103 mmol/L (98-107) CARBON DIOXIDE 27 mmol/L (21-32) CALCIUM 9.1 mg/dL (8.5-10.1) TOTAL PROTEIN 7.4 g/dL (6.4-8.2) ALBUMIN 3.6 g/dL (3.3-5.0) BILIRUBIN, TOTAL 0.7 mg/dL (0.0-1.0) ALKALINE PHOSPHATASE 88 U/L (46-116) AST (SGOT) 18 U/L (15-37) ALT (SGPT) 15 U/L (12-78) LIPASE 98 U/L (73-393) AMYLASE 49 U/L (25-115) . PROGRESS AND PROCEDURES Course of Care: IV NS Zofran 4 mg IV Dilauidid 0.5 mg IV Patient is stable. Symptoms better. Patient/family counseled. Disposition: Discharged. Condition: stable. CLINICAL IMPRESSION Acute periumbilical and right lower quadrant abdominal pain of unknown cause. INSTRUCTIONS Drink plenty of fluids. Warnings: Further evaluation is necessary. GENERAL WARNINGS: Return or contact your physician immediately if your condition worsens or changes unexpectedly, if not improving as expected, or if other problems arise. Your Current Medications: CONTINUE TAKING THE FOLLOWING MEDICATIONS: Aspirin Oral : Tablet 325 mg, 1 tablet. Baclofen Oral : 20 mg every 5 hrs. Dantrolene Sodium Oral : 50mg 3 x daily. Dilaudid Oral : Tablet 8 mg, PRN. FLUoxetine HCl Oral : 20 mg daily. Morphine Sulfate Oral : 30 mg ER 3x a day. Neurontin Oral : 800mg BID. Nortriptyline HCl Oral. Oxybutynin Chloride Oral : 5 mg 3x a day. TiZANidine HCl Oral : 4 mg every 5 hrs. Prescription Medications: Zofran (orally disintegrating tablets) 4 mg: take 1 orally every 6 hours as needed for nausea. Dispense ten (10). No refill. Substitution is permissible. Dilaudid 2 mg: take 1 tablet orally every 8 hours as needed for pain. Dispense ten (10). No refill. Substitution is permissible. Follow-up: Follow up with your doctor in two days. Call for the next available appointment. Understanding of the discharge instructions verbalized by patient. (Electronically signed by Angel Grimes MD 07/30/2016 7:38)
--- NOTE | 2016-07-30 07:38 | ED DISCHARGE INSTRUCTIONS ---
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 INSTRUCTIONS Drink plenty of fluids. Warnings: Further evaluation is necessary. GENERAL WARNINGS: Return or contact your physician immediately if your condition worsens or changes unexpectedly, if not improving as expected, or if other problems arise. Your Current Medications: CONTINUE TAKING THE FOLLOWING MEDICATIONS: Aspirin Oral : Tablet 325 mg, 1 tablet. Baclofen Oral : 20 mg every 5 hrs. Dantrolene Sodium Oral : 50mg 3 x daily. Dilaudid Oral : Tablet 8 mg, PRN. FLUoxetine HCl Oral : 20 mg daily. Morphine Sulfate Oral : 30 mg ER 3x a day. Neurontin Oral : 800mg BID. Nortriptyline HCl Oral. Oxybutynin Chloride Oral : 5 mg 3x a day. TiZANidine HCl Oral : 4 mg every 5 hrs. Prescription Medications: Zofran (orally disintegrating tablets) 4 mg: take 1 orally every 6 hours as needed for nausea. Dispense ten (10). No refill. Substitution is permissible. Dilaudid 2 mg: take 1 tablet orally every 8 hours as needed for pain. Dispense ten (10). No refill. Substitution is permissible. Follow-up: Follow up with your doctor in two days. Call for the next available appointment. Understanding of the discharge instructions verbalized by patient. ADDITIONAL INFORMATION Ondansetron Oral disintegrating tablet What is this medicine? ONDANSETRON (on DEONTE se syed) is used to treat nausea and vomiting caused by chemotherapy. It is also used to prevent or treat nausea and vomiting after surgery. How should I use this medicine? These tablets are made to dissolve in the mouth. Do not try to push the tablet through the foil backing. With dry hands, peel away the foil backing and gently remove the tablet. Place the tablet in the mouth and allow it to dissolve, then swallow. While you may take these tablets with water, it is not necessary to do so. Talk to your boat designer regarding the use of this medicine in children. Special care may be needed. What side effects may I notice from receiving this medicine? Side effects that you should report to your doctor or health home care giver as soon as possible: allergic reactions like skin rash, itching or hives, swelling of the face, lips, or tongue breathing problems dizziness fast or irregular heartbeat feeling faint or lightheaded, falls fever and chills swelling of the hands and feet tightness in the chest Side effects that usually do not require medical attention (report to your doctor or health home care giver if they continue or are bothersome): constipation or diarrhea headache What may interact with this medicine? Do not take this medicine with any of the following medications: -apomorphine -cisapride -dofetilide -dronedarone -pimozide -thioridazine -ziprasidone This medicine may also interact with the following medications: -carbamazepine -phenytoin -rifampicin -tramadol -other medicines that prolong the QT interval (cause an abnormal heart rhythm) What if I miss a dose? If you miss a dose, take it as soon as you can. If it is almost time for your next dose, take only that dose. Do not take double or extra doses. Where should I keep my medicine? Keep out of the reach of children. Store between 2 and 30 degrees C (36 and 86 degrees F). Throw away any unused medicine after the expiration date. What should I tell my health care provider before I take this medicine? They need to know if you have any of these conditions: heart disease history of irregular heartbeat liver disease low levels of magnesium or potassium in the blood an unusual or allergic reaction to ondansetron, granisetron, other medicines, foods, dyes, or preservatives or trying to get breast-feeding What should I watch for while using this medicine? Check with your doctor or health home care giver as soon as you can if you have any sign of an allergic reaction. Hydromorphone Hydrochloride Oral tablet What is this medicine? HYDROMORPHONE (cody droe MOR fone) is a pain reliever. It is used to treat moderate to severe pain. How should I use this medicine? Take this medicine by mouth with a glass of water. If the medicine upsets your stomach, take it with food or milk. Follow the directions on the prescription label. Do not take more medicine than you are told to take. Talk to your boat designer regarding the use of this medicine in children. Special care may be needed. What side effects may I notice from receiving this medicine? Side effects that you should report to your doctor or health home care giver as soon as possible: allergic reactions like skin rash, itching or hives, swelling of the face, lips, or tongue breathing problems changes in vision confusion feeling faint or lightheaded, falls seizures slow or fast heartbeat trouble passing urine or change in the amount of urine trouble with balance, talking, walking Side effects that usually do not require medical attention (report to your doctor or health home care giver if they continue or are bothersome): difficulty sleeping drowsiness dry mouth flushing headache itching loss of appetite nausea, vomiting What may interact with this medicine? alcohol antihistamines for allergy, cough and cold medicines for anesthesia medicines for depression, anxiety, or psychotic disturbances medicines for sleep muscle relaxants naltrexone narcotic medicines (opiates) for pain phenothiazines like chlorpromazine, mesoridazine, prochlorperazine, thioridazine tramadol What if I miss a dose? If you miss a dose, take it as soon as you can. If it is almost time for your next dose, take only that dose. Do not take double or extra doses. Where should I keep my medicine? Keep out of the reach of children. This medicine can be abused. Keep your medicine in a safe place to protect it from theft. Do not share this medicine with anyone. Selling or giving away this medicine is dangerous and against the law. Store at room temperature between 15 and 30 degrees C (59 and 86 degrees F). Keep container tightly closed. Protect from light. Discard unused medicine and used packaging carefully. Pets and children can be harmed if they find used or lost packages. Flush any unused medicines down the toilet. Do not use the medicine after the expiration date. What should I tell my health care provider before I take this medicine? They need to know if you have any of these conditions: brain tumor drug abuse or addiction head injury heart disease frequently drink alcohol containing drinks kidney disease or problems going to the bathroom liver disease lung disease, asthma, or breathing problems mental problems an allergic or unusual reaction to lactose, hydromorphone, other opioid analgesics, other medicines, sulfites, foods, dyes, or preservatives or trying to get breast-feeding What should I watch for while using this medicine? Tell your doctor or health home care giver if your pain does not go away, if it gets worse, or if you have new or a different type of pain. You may develop tolerance to the medicine. Tolerance means that you will need a higher dose of the medicine for pain relief. Tolerance is normal and is expected if you take this medicine for a long time. Do not suddenly stop taking your medicine because you may develop a severe reaction. Your body becomes used to the medicine. This does NOT mean you are addicted. Addiction is a behavior related to getting and using a drug for a non-medical reason. If you have pain, you have a medical reason to take pain medicine. Your doctor will tell you how much medicine to take. If your doctor wants you to stop the medicine, the dose will be slowly lowered over time to avoid any side effects. You may get drowsy or dizzy. Do not drive, use machinery, or do anything that needs mental alertness until you know how this medicine affects you. Do not stand or sit up quickly, especially if you are an older patient. This reduces the risk of dizzy or fainting spells. Alcohol may interfere with the effect of this medicine. Avoid alcoholic drinks. There are different types of narcotic medicines (opiates) for pain. If you take more than one type at the same time, you may have more side effects. Give your health care provider a list of all medicines you use. Your doctor will tell you how much medicine to take. Do not take more medicine than directed. Call emergency for help if you have problems breathing. This medicine will cause constipation. Try to have a bowel movement at least every 2 to 3 days. If you do not have a bowel movement for 3 days, call your doctor or health home care giver. Your mouth may get dry. Chewing sugarless gum or sucking hard candy, and drinking plenty of water may help. Contact your doctor if the problem does not go away or is severe. You have been given the following additional information: Ondansetron Oral disintegrating tablet Hydromorphone Hydrochloride Oral tablet (Electronically signed by Angel Grimes MD 07/30/2016 7:38)
--- NOTE | 2016-07-30 07:38 | ED MAR SUMMARY ---
..... Medication Administration Record [facility] [address] 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 Medication Administered: ZOFRAN [IVP] (ONDANSETRON HCL), Dose: 4 mg IVP over 2 minute(s), Site: #1 right hand. Medication Ordered: Zofran IV 4 mg (NOW). Start 14:14 07/26/2016 Sara Manuel R.N., Stop 17:45 07/26/2016 Sara Manuel R.N. Medication Administered: IV NS (SALINE), Dose: IV Fluids, Rate: 250 mL/hr, Dispensed: 1000 mL bag, Site: #1 right hand. Medication Ordered: IV NS : initial bolus none -, then 250 mL/hr for 4h (NOW); Routine. Given 14:15 07/26/2016 Sara Manuel R.N. Medication Administered: DILAUDID [IVP] (HYDROMORPHONE HCL PF), Dose: 0.5 mg IVP over 1 minute(s), Site: #1 right hand. Medication Ordered: Dilaudid IV 0.5 mg (NOW). Given 15:57 07/26/2016 Sara Manuel R.N. Medication Administered: DILAUDID [IVP] (HYDROMORPHONE HCL PF), Dose: 0.5 mg IVP over 1 minute(s), Site: #1 right hand. Medication Ordered: Dilaudid IV 0.5 mg (NOW).
--- NOTE | 2016-07-30 07:38 | ED MED RECONCILIATION SUMMARY ---
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 BMI: 23.1 ALLERGIES: Copaxone, Penicillins, Pt/ state amoxicillin is okay; PCN allergy as baby., Quinolones The patient's Home Medications are listed below: CONTINUE TAKING THE FOLLOWING MEDICATIONS: Aspirin Oral (325 mg) 1 tablet Baclofen Oral 20 mg, every 5 hrs Dantrolene Sodium Oral 50mg , 3 x daily Dilaudid Oral (8 mg), PRN FLUoxetine HCl Oral 20 mg, daily Morphine Sulfate Oral 30 mg ER, 3x a day Neurontin Oral 800mg, BID Nortriptyline HCl Oral Oxybutynin Chloride Oral 5 mg, 3x a day TiZANidine HCl Oral 4 mg, every 5 hrs The source(s) of the original Home Medication information: Not obtained. The following Medications were given to the patient in the Emergency Department: IV NS IV Fluids bolus 0, then 250 mL/hr, administered: 07/26/2016 2:14:00 PM Zofran [IVP] IVP 4 mg, administered: 07/26/2016 2:12:00 PM Dilaudid [IVP] IVP 0.5 mg, administered: 07/26/2016 2:15:00 PM Dilaudid [IVP] IVP 0.5 mg, administered: 07/26/2016 3:57:00 PM The following Medications were prescribed to the patient: Zofran (orally disintegrating tablets) 4 mg: take 1 orally every 6 hours as needed for nausea. Dispense ten (10). No refill. Substitution is permissible. -- Angel Grimes MD Dilaudid 2 mg: take 1 tablet orally every 8 hours as needed for pain. Dispense ten (10). No refill. Substitution is permissible. -- Angel Grimes MD
--- NOTE | 2016-07-30 07:38 | ED DISCHARGE INSTRUCTIONS ---
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 INSTRUCTIONS Drink plenty of fluids. Warnings: Further evaluation is necessary. GENERAL WARNINGS: Return or contact your physician immediately if your condition worsens or changes unexpectedly, if not improving as expected, or if other problems arise. Your Current Medications: CONTINUE TAKING THE FOLLOWING MEDICATIONS: Aspirin Oral : Tablet 325 mg, 1 tablet. Baclofen Oral : 20 mg every 5 hrs. Dantrolene Sodium Oral : 50mg 3 x daily. Dilaudid Oral : Tablet 8 mg, PRN. FLUoxetine HCl Oral : 20 mg daily. Morphine Sulfate Oral : 30 mg ER 3x a day. Neurontin Oral : 800mg BID. Nortriptyline HCl Oral. Oxybutynin Chloride Oral : 5 mg 3x a day. TiZANidine HCl Oral : 4 mg every 5 hrs. Prescription Medications: Zofran (orally disintegrating tablets) 4 mg: take 1 orally every 6 hours as needed for nausea. Dispense ten (10). No refill. Substitution is permissible. Dilaudid 2 mg: take 1 tablet orally every 8 hours as needed for pain. Dispense ten (10). No refill. Substitution is permissible. Follow-up: Follow up with your doctor in two days. Call for the next available appointment. Understanding of the discharge instructions verbalized by patient. ADDITIONAL INFORMATION Ondansetron Oral disintegrating tablet What is this medicine? ONDANSETRON (on DEONTE se syed) is used to treat nausea and vomiting caused by chemotherapy. It is also used to prevent or treat nausea and vomiting after surgery. How should I use this medicine? These tablets are made to dissolve in the mouth. Do not try to push the tablet through the foil backing. With dry hands, peel away the foil backing and gently remove the tablet. Place the tablet in the mouth and allow it to dissolve, then swallow. While you may take these tablets with water, it is not necessary to do so. Talk to your supervisor sample regarding the use of this medicine in children. Special care may be needed. What side effects may I notice from receiving this medicine? Side effects that you should report to your doctor or health respiratory care technician as soon as possible: allergic reactions like skin rash, itching or hives, swelling of the face, lips, or tongue breathing problems dizziness fast or irregular heartbeat feeling faint or lightheaded, falls fever and chills swelling of the hands and feet tightness in the chest Side effects that usually do not require medical attention (report to your doctor or health respiratory care technician if they continue or are bothersome): constipation or diarrhea headache What may interact with this medicine? Do not take this medicine with any of the following medications: -apomorphine -cisapride -dofetilide -dronedarone -pimozide -thioridazine -ziprasidone This medicine may also interact with the following medications: -carbamazepine -phenytoin -rifampicin -tramadol -other medicines that prolong the QT interval (cause an abnormal heart rhythm) What if I miss a dose? If you miss a dose, take it as soon as you can. If it is almost time for your next dose, take only that dose. Do not take double or extra doses. Where should I keep my medicine? Keep out of the reach of children. Store between 2 and 30 degrees C (36 and 86 degrees F). Throw away any unused medicine after the expiration date. What should I tell my health care provider before I take this medicine? They need to know if you have any of these conditions: heart disease history of irregular heartbeat liver disease low levels of magnesium or potassium in the blood an unusual or allergic reaction to ondansetron, granisetron, other medicines, foods, dyes, or preservatives or trying to get breast-feeding What should I watch for while using this medicine? Check with your doctor or health respiratory care technician as soon as you can if you have any sign of an allergic reaction. Hydromorphone Hydrochloride Oral tablet What is this medicine? HYDROMORPHONE (cody droe MOR fone) is a pain reliever. It is used to treat moderate to severe pain. How should I use this medicine? Take this medicine by mouth with a glass of water. If the medicine upsets your stomach, take it with food or milk. Follow the directions on the prescription label. Do not take more medicine than you are told to take. Talk to your supervisor sample regarding the use of this medicine in children. Special care may be needed. What side effects may I notice from receiving this medicine? Side effects that you should report to your doctor or health respiratory care technician as soon as possible: allergic reactions like skin rash, itching or hives, swelling of the face, lips, or tongue breathing problems changes in vision confusion feeling faint or lightheaded, falls seizures slow or fast heartbeat trouble passing urine or change in the amount of urine trouble with balance, talking, walking Side effects that usually do not require medical attention (report to your doctor or health respiratory care technician if they continue or are bothersome): difficulty sleeping drowsiness dry mouth flushing headache itching loss of appetite nausea, vomiting What may interact with this medicine? alcohol antihistamines for allergy, cough and cold medicines for anesthesia medicines for depression, anxiety, or psychotic disturbances medicines for sleep muscle relaxants naltrexone narcotic medicines (opiates) for pain phenothiazines like chlorpromazine, mesoridazine, prochlorperazine, thioridazine tramadol What if I miss a dose? If you miss a dose, take it as soon as you can. If it is almost time for your next dose, take only that dose. Do not take double or extra doses. Where should I keep my medicine? Keep out of the reach of children. This medicine can be abused. Keep your medicine in a safe place to protect it from theft. Do not share this medicine with anyone. Selling or giving away this medicine is dangerous and against the law. Store at room temperature between 15 and 30 degrees C (59 and 86 degrees F). Keep container tightly closed. Protect from light. Discard unused medicine and used packaging carefully. Pets and children can be harmed if they find used or lost packages. Flush any unused medicines down the toilet. Do not use the medicine after the expiration date. What should I tell my health care provider before I take this medicine? They need to know if you have any of these conditions: brain tumor drug abuse or addiction head injury heart disease frequently drink alcohol containing drinks kidney disease or problems going to the bathroom liver disease lung disease, asthma, or breathing problems mental problems an allergic or unusual reaction to lactose, hydromorphone, other opioid analgesics, other medicines, sulfites, foods, dyes, or preservatives or trying to get breast-feeding What should I watch for while using this medicine? Tell your doctor or health respiratory care technician if your pain does not go away, if it gets worse, or if you have new or a different type of pain. You may develop tolerance to the medicine. Tolerance means that you will need a higher dose of the medicine for pain relief. Tolerance is normal and is expected if you take this medicine for a long time. Do not suddenly stop taking your medicine because you may develop a severe reaction. Your body becomes used to the medicine. This does NOT mean you are addicted. Addiction is a behavior related to getting and using a drug for a non-medical reason. If you have pain, you have a medical reason to take pain medicine. Your doctor will tell you how much medicine to take. If your doctor wants you to stop the medicine, the dose will be slowly lowered over time to avoid any side effects. You may get drowsy or dizzy. Do not drive, use machinery, or do anything that needs mental alertness until you know how this medicine affects you. Do not stand or sit up quickly, especially if you are an older patient. This reduces the risk of dizzy or fainting spells. Alcohol may interfere with the effect of this medicine. Avoid alcoholic drinks. There are different types of narcotic medicines (opiates) for pain. If you take more than one type at the same time, you may have more side effects. Give your health care provider a list of all medicines you use. Your doctor will tell you how much medicine to take. Do not take more medicine than directed. Call emergency for help if you have problems breathing. This medicine will cause constipation. Try to have a bowel movement at least every 2 to 3 days. If you do not have a bowel movement for 3 days, call your doctor or health respiratory care technician. Your mouth may get dry. Chewing sugarless gum or sucking hard candy, and drinking plenty of water may help. Contact your doctor if the problem does not go away or is severe. You have been given the following additional information: Ondansetron Oral disintegrating tablet Hydromorphone Hydrochloride Oral tablet (Electronically signed by Angel Grimes MD 07/30/2016 7:38)
--- NOTE | 2016-07-30 07:38 | ED MED RECONCILIATION SUMMARY ---
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 BMI: 23.1 ALLERGIES: Copaxone, Penicillins, Pt/ state amoxicillin is okay; PCN allergy as baby., Quinolones The patient's Home Medications are listed below: CONTINUE TAKING THE FOLLOWING MEDICATIONS: Aspirin Oral (325 mg) 1 tablet Baclofen Oral 20 mg, every 5 hrs Dantrolene Sodium Oral 50mg , 3 x daily Dilaudid Oral (8 mg), PRN FLUoxetine HCl Oral 20 mg, daily Morphine Sulfate Oral 30 mg ER, 3x a day Neurontin Oral 800mg, BID Nortriptyline HCl Oral Oxybutynin Chloride Oral 5 mg, 3x a day TiZANidine HCl Oral 4 mg, every 5 hrs The source(s) of the original Home Medication information: Not obtained. The following Medications were given to the patient in the Emergency Department: IV NS IV Fluids bolus 0, then 250 mL/hr, administered: 07/26/2016 2:14:00 PM Zofran [IVP] IVP 4 mg, administered: 07/26/2016 2:12:00 PM Dilaudid [IVP] IVP 0.5 mg, administered: 07/26/2016 2:15:00 PM Dilaudid [IVP] IVP 0.5 mg, administered: 07/26/2016 3:57:00 PM The following Medications were prescribed to the patient: Zofran (orally disintegrating tablets) 4 mg: take 1 orally every 6 hours as needed for nausea. Dispense ten (10). No refill. Substitution is permissible. -- Angel Grimes MD Dilaudid 2 mg: take 1 tablet orally every 8 hours as needed for pain. Dispense ten (10). No refill. Substitution is permissible. -- Angel Grimes MD
--- NOTE | 2016-07-30 07:38 | ED MAR SUMMARY ---
..... Medication Administration Record [facility] [address] 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 Medication Administered: ZOFRAN [IVP] (ONDANSETRON HCL), Dose: 4 mg IVP over 2 minute(s), Site: #1 right hand. Medication Ordered: Zofran IV 4 mg (NOW). Start 14:14 07/26/2016 Sara Manuel R.N., Stop 17:45 07/26/2016 Sara Manuel R.N. Medication Administered: IV NS (SALINE), Dose: IV Fluids, Rate: 250 mL/hr, Dispensed: 1000 mL bag, Site: #1 right hand. Medication Ordered: IV NS : initial bolus none -, then 250 mL/hr for 4h (NOW); Routine. Given 14:15 07/26/2016 Sara Manuel R.N. Medication Administered: DILAUDID [IVP] (HYDROMORPHONE HCL PF), Dose: 0.5 mg IVP over 1 minute(s), Site: #1 right hand. Medication Ordered: Dilaudid IV 0.5 mg (NOW). Given 15:57 07/26/2016 Sara Manuel R.N. Medication Administered: DILAUDID [IVP] (HYDROMORPHONE HCL PF), Dose: 0.5 mg IVP over 1 minute(s), Site: #1 right hand. Medication Ordered: Dilaudid IV 0.5 mg (NOW).
== END 2016-07-26 18:45 | disposition home or self-care (01) ==
LOC: ED SRH 13:12
DX: R10.31 Right lower quadrant pain (principal); R10.33 Periumbilical pain; I10 Essential (primary) hypertension; G35 Multiple sclerosis; Z79.891 Long term (current) use of opiate analgesic; Z79.82 Long term (current) use of aspirin; Z79.899 Other long term (current) drug therapy; Z88.5 Allergy status to narcotic agent; Z88.0 Allergy status to penicillin; Z88.1 Allergy status to other antibiotic agents
CPT/HCPCS: 85241; 90100; 92235; 92530; 95059

== ENCOUNTER 2016-09-12 15:54 | Emergency (ER) | payer OTHER ==
--- NOTE | 2016-09-12 18:31 | ED ORDER SUMMARY ---
..... 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 OrderSheet [facility] VisitID: [id number] [place] [address] 56y, M Registration Date/Time: 09/12/2016 ORDER SHEET Weight: 73.4 kg (stated) Allergies: Copaxone, Penicillins, Pt/ state amoxicillin is okay; PCN allergy as baby., Quinolones GENERAL ORDERS: CBC w Diff Urgent (16:06 09/12/2016 HBivens A.R.N.P.) (Ack 16:08 TBergley) (16:29 TLewis R.N.) CMP Urgent (16:06 09/12/2016 HBivens A.R.N.P.) (Ack 16:08 TBergley) (16:29 TLewis R.N.) UA-Culture if indicated Urgent (16:06 09/12/2016 HBivens A.R.N.P.) (Ack 16:08 TBergley) (16:12 TLewis R.N.) MEDICATION ORDERS: Ibuprofen PO 800 mg (NOW) (16:53 09/12/2016 HBivens A.R.N.P.) (16:56 TLewis R.N.) Bactrim DS PO (Tablet 800-160 mg) 1 tab (NOW) (18:33 09/12/2016 HBivens A.R.N.P.) (18:42 TLewis R.N.) IV FLUIDS: ORDER SHEET NOTES: [Electronically signed by Vladimir Hendrix R.N. (18:47 09/12/2016)] [Electronically signed by Sherri YoderR.N.PFrancis (20:07 09/12/2016)] [Electronically locked/signed by Vladimir Hendrix R.N. (18:47 09/12/2016)]
--- NOTE | 2016-09-12 18:31 | ED ORDER SUMMARY ---
..... 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 OrderSheet [facility] VisitID: [id number] [place] [address] 56y, M Registration Date/Time: 09/12/2016 ORDER SHEET Weight: 73.4 kg (stated) Allergies: Copaxone, Penicillins, Pt/ state amoxicillin is okay; PCN allergy as baby., Quinolones GENERAL ORDERS: CBC w Diff Urgent (16:06 09/12/2016 HBivens A.R.N.P.) (Ack 16:08 TBergley) (16:29 TLewis R.N.) CMP Urgent (16:06 09/12/2016 HBivens A.R.N.P.) (Ack 16:08 TBergley) (16:29 TLewis R.N.) UA-Culture if indicated Urgent (16:06 09/12/2016 HBivens A.R.N.P.) (Ack 16:08 TBergley) (16:12 TLewis R.N.) MEDICATION ORDERS: Ibuprofen PO 800 mg (NOW) (16:53 09/12/2016 HBivens A.R.N.P.) (16:56 TLewis R.N.) Bactrim DS PO (Tablet 800-160 mg) 1 tab (NOW) (18:33 09/12/2016 HBivens A.R.N.P.) (18:42 TLewis R.N.) IV FLUIDS: ORDER SHEET NOTES: [Electronically signed by Vladimir Hendrix R.N. (18:47 09/12/2016)] [Electronically signed by Sherri YoderR.N.PFrancis (20:07 09/12/2016)] [Electronically locked/signed by Vladimir Hendrix R.N. (18:47 09/12/2016)]
--- NOTE | 2016-09-12 18:31 | ED CLINICAL REPORT ---
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 Arrived- By ambulance. Historian- patient. HISTORY OF PRESENT ILLNESS Chief Complaint: HEMATURIA. This started today and is still present. The problem is described as moderate. No penile discharge, discomfort with urination, urinary frequency, testicular pain or urgency of urination. No flank pain. Able to void. Not voiding only small amounts. He has had Daly catheter problems, with bloody urine noted. Sexual history is noncontributory. (pt has suprapubic daly catheter that he has had for several years, gets changed every 3 wks by home health nurse, nurse was out today and changed it, there is always a little blood after changing it but more today and pt is concerned is bleeding to ). Similar symptoms previously: Frequently, milder. Recent medical care: Not recently seen/assessed. REVIEW OF SYSTEMS No fever, flank pain, abdominal pain, vomiting or diarrhea. No chest pain or difficulty breathing. The patient has had hematuria. All systems otherwise negative, except as recorded above. PAST HISTORY See nurses notes. ( PROBLEMS: Pharyngitis. Suprapubic cath. Hypotension. Nausea. Dehydration. Acute Pain. Pulmonary Embolism. Hypertension. Daly Catheter Replacement. Hypokalemia. Leukocytosis. Wound Dehiscence. Urinary Retention. Nephrolithiasis. Vomiting. Immunizations. UTI - Urinary Tract Infection. Abdominal Pain. Bowel Obstruction. Multiple Sclerosis. --16:06 Vladimir Hendrix R.N.). SOCIAL HISTORY Never smoker. No alcohol use or drug use. No recent travel. Is a local resident. FAMILY HISTORY Negative. ADDITIONAL NOTES The nursing notes have been reviewed with agreement regarding the chief complaint, HPI, ROS, PMH and patient medications and allergies. PHYSICAL EXAM Vital Signs: 09/12/2016 16:03 BP: 174/102. HR: 94. RR: 16. O2 saturation: 100%. Temp: 99.5 F. Have been reviewed as abnormal and appear to be correct. Hypertensive. Heart rate normal. Respiratory rate normal. Temperature normal. Oxygen saturation normal. Appearance: Alert. Oriented X3. No acute distress. ENT: Normal external inspection. Pharynx normal. Neck: Neck supple. CVS: Heart sounds normal. Respiratory: No respiratory distress. Breath sounds normal. Abdomen: Soft and nontender. Bowel sounds normal. No organomegaly. No mass. (ostomy bad in place, suprapubic daly in place draining clear bloody urine). Back: Normal external inspection. Skin: Skin warm and dry. Normal skin color. No rash. Normal skin turgor. Extremities: Extremities do not exhibit normal ROM. No lower extremity edema. (pt unable to move anything from neck down, stated it had been several years since he got up). Neuro: Oriented X 3. No motor deficit. No sensory deficit. LABS, X-RAYS, AND EKG Laboratory Tests: UA-Culture if indicated: (KIT: 09/12/2016 16:15) ( [facility] 09/12/2016 17:53) IP Test Result Flag Units (Reference) URINE COLOR RED URINE APPEARANCE TURBID URINE GLUCOSE NEGATIVE (NEGATIVE) URINE BILIRUBIN 2+ (NEGATIVE) URINE KETONE 1+ (NEGATIVE) URINE SPECIFIC GRAVITY 1.015 (1.010-1.030) URINE PH 6.5 (5.0-8.0) URINE PROTEIN 3+ (NEGATIVE) URINE UROBILINOGEN 1.0 EU/dL (0.2-1.0) URINE NITRITE POSITIVE (NEGATIVE) URINE BLOOD 3+ (NEGATIVE) URINE LEUK ESTERASE POSITIVE (NEGATIVE) CBC w Diff: (KIT: 09/12/2016 16:30) ( [facility] 09/12/2016 16:56) Final results Test Result Flag Units (Reference) WHITE BLOOD COUNT 12.3 H K/uL (4.5-11.5) RED BLOOD COUNT 6.31 *H M/uL (4.50-5.90) HEMOGLOBIN 17.2 gm/dL (13.5-17.5) HEMATOCRIT 51.1 % (41.0-53.0) MEAN CELL VOLUME 81 fL (80-100) MEAN CORPUSCULAR HGB 27 pg (26-34) MEAN CORPUSCULAR HGB CONC 34 g/dL (31-37) RED CELL DISTRIBUTION WIDTH 17.5 H % (11.6-14.8) PLATELET COUNT 305 K/uL (150-400) NEUTROPHIL % 85.0 H % (50-75) LYMPH % 8.8 L % (25-40) MONO % 5.1 % (3-14) EOSINOPHIL % 0.7 % (0-4) BASOPHIL % 0.4 % (0-2) CMP: (KIT: 09/12/2016 16:30) ( MsgRcvd 09/12/2016 17:24) Final results Test Result Flag Units (Reference) GLUCOSE 96 mg/dL (70-110) BUN 13 mg/dL (7-18) CREATININE 0.5 L mg/dL (0.6-1.3) Estimated GFR >60 mL/min Estimated GFR- >60 mL/min Note: Persistent reduction over 3 months in eGFR<60 mL/min/1.73 m2 defines CKD. Patients with eGFR values>=60 mL/min/1.73 m2 may also have CKD if evidence ofpersistent proteinuria. Additional information may be foundat www.kidney.org. SODIUM 141 mmol/L (136-145) POTASSIUM 3.5 mmol/L (3.5-5.1) CHLORIDE 103 mmol/L (98-107) CARBON DIOXIDE 27 mmol/L (21-32) CALCIUM 9.2 mg/dL (8.5-10.1) TOTAL PROTEIN 7.4 g/dL (6.4-8.2) ALBUMIN 3.5 g/dL (3.3-5.0) BILIRUBIN, TOTAL 0.5 mg/dL (0.0-1.0) ALKALINE PHOSPHATASE 85 U/L (46-116) AST (SGOT) 17 U/L (15-37) ALT (SGPT) 15 U/L (12-78) . PROGRESS AND PROCEDURES Course of Care: 1656. spoke to pt about current lab results and answered all qtns to my best ability, pt concerned where blood is coming from and thinks he needs transfusion, reassured no transfusion is needed at this time nurse calling ems for transport home. Patient counseled in person regarding the patient's stable condition, test results and diagnosis. Differential Diagnosis: Other possible considerations: uti, renal failure, insufficiency, kidney stones, prostatitis, bph, renal ca, bladder ca. Above considerations are based on history, physical exam, reassessment and laboratory data. Differential diagnosis was discussed with patient. Disposition: Discharged home in good and unchanged condition (18:10). Condition: good and stable. CLINICAL IMPRESSION Acute urinary tract infection with cystitis and hematuria associated with indwelling catheter. Not associated with obstruction. INSTRUCTIONS Drink plenty of fluids for the next 24 hours until better. Warnings: GENERAL WARNINGS: Return or contact your physician immediately if your condition worsens or changes unexpectedly, if not improving as expected, or if other problems arise. Specifically return if problem worsens. Prescription Medications: Bactrim DS 800 mg / 160 mg: take 1 tablet orally every 12 hours for 10 days. No refill. Follow-up: Follow up with your doctor in about three days even if well. Call for an appointment. Summary of care provided to patient. Understanding of the discharge instructions verbalized by patient. (Electronically signed by Sherri Yoder A.R.N.P. 09/12/2016 20:07)
--- NOTE | 2016-09-12 18:31 | ED NURSING NOTES ---
Clinical Report - Nurses [facility] [address] [place] [address] 09/12/2016 15:57 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 Triage time 16:03. Acuity: LEVEL 3. Chief Complaint: BOSWELL PROBLEM and HEMATURIA. JOE COMA SCORE: [place] Coma Scale: 15- eyes open spontaneously (4); best verbal response- oriented x 4 (5); best motor response- obeys commands (6). --16:07 Vladimir Hendrix R.N. 16:03 09/12/16. BP: 174/102. HR: 94. RR: 16. O2 saturation: 100%. Temp: 99.5 F. Pain level now 8/10. --16:07 Vladimir Hendrix R.N. Weight: 73.4 kg stated. Height/Length: 70 inches Per Patient. BMI: 23.2. --16:07 Vladimir Hendrix R.N. Medications Aspirin Oral (Tablet 325 mg) 1 tablet. Baclofen Oral 20 mg, every 5 hrs . Dantrolene Sodium Oral 50mg , 3 x daily. Dilaudid Oral (Tablet 8 mg), PRN. FLUoxetine HCl Oral 20 mg, daily. Morphine Sulfate Oral 30 mg ER, 3x a day. Neurontin Oral 800mg, BID. Nortriptyline HCl Oral. Oxybutynin Chloride Oral 5 mg, 3x a day. TiZANidine HCl Oral 4 mg, every 5 hrs. --16:05 Vladimir Hendrix R.N. Medication/allergy information source: EMS. --16:07 Vladimir Hendrix R.N. Allergies Copaxone. Definite Severe(rash) Penicillins. Probable Moderate(rash) Pt/ state amoxicillin is okay; PCN allergy as baby.. Quinolones. --16:05 Vladimir Hendrix R.N. History Arrived by EMS. Historian: patient. Unaccompanied. This started today. ( Pt started having blood in his urine around 1400. Pt has a suprapubic cath. Pt has around 500cc of blood in the boswell bag. Pt also has a colostomy. Pt has a hx of MS.). Treatment RN MDS COORDINATOR: None. See EMS report. EMS treatment RN MDS COORDINATOR verbally communicated and report reviewed. See report. SOCIAL HX: Never smoker. No alcohol use or drug use. --16:07 Vladimir Hendrix R.N. PROBLEMS: Pharyngitis. Suprapubic cath. Hypotension. Nausea. Dehydration. Acute Pain. Pulmonary Embolism. Hypertension. Boswell Catheter Replacement. Hypokalemia. Leukocytosis. Wound Dehiscence. Urinary Retention. Nephrolithiasis. Vomiting. Immunizations. UTI - Urinary Tract Infection. Abdominal Pain. Bowel Obstruction. Multiple Sclerosis. --16:06 Vladimir Hendrix R.N. Interventions ID band on patient. To treatment room. --16:07 Vladimir Hendrix R.N. PHYSICAL ASSESSMENT GENERAL / NEURO / PSYCH: Alert. Oriented X 4. Appears in no acute distress. HEENT: Mucous membranes are pink. RESPIRATORY: Respirations not labored. Breath sounds within normal limits. CVS: Normal heart rate and rhythm. GI / : Abdomen soft and nontender. Bowel sounds within normal limits. ( Pt came in with a supra pubic cath with around 500cc of blood in the boswell bag. Pt has chronic pain and is generalized around 8/10. Pt has his boswell changed around 3 weeks.). SKIN: Skin is warm and dry. --16:09 Vladimir Hendrix R.N. NURSING PROGRESS NOTES Pulse oximeter and NIBP monitor placed on patient. Two patient identifiers checked. Call light placed in reach. Side rails up x 2. Bed placed in lowest position. Brakes of bed on. --16:09 Vladimir Hendrix R.N. Checked patient name and birthdate: patient confirmed. Blood samples drawn from the left antecubital space peripheral IV site by nurse ; labeled in presence of the patient and sent to lab: ryan saldana. --16:30 Vladimir Hendrix R.N. 16:51 09/12/16. BP: 150/89. HR: 102. RR: 15. O2 saturation: 99%. Pain level now 7/10. --16:52 Vladimir Hendrix R.N. 16:56 09/12/2016 Ibuprofen PO 800 mg given. Allergies verified and confirmed 5 rights. --16:56 Simeon, Vladimir, R.N. ( Pt was given ibuprofen for a headache.). --17:12 Vladimir Hendrix R.N. ( Pt is resting in bed.). --17:31 Vladimir Hendrix R.N. 17:30 09/12/16. BP: 137/84. HR: 92. RR: 14. O2 saturation: 99%. Pain level now 5/10. --17:31 Vladimir Hendrix R.N. ( Pt requested to just go home. He does not want anything done and is tired of the ER. PA was informed of the patient's wishes. [facility] was called for transport.). --18:09 Vladimir Hendrix R.N. 18:12 09/12/16. BP: 144/77. HR: 96. RR: 15. O2 saturation: 99%. Pain level now 5/10. --18:12 Vladimir Hendrix R.N. 18:42 09/12/2016 Ibuprofen PO 800 mg given. Allergies verified and confirmed 5 rights. --18:42 Vladimir Hendrix R.N. 18:42 09/12/2016 Bactrim DS (Sulfamethoxazole-TMP DS) PO 1 tab given. Allergies verified and confirmed 5 rights. --18:42 Vladimir Hendrix R.N. DISPOSITION / DISCHARGE Departure time: 18:40. Condition at departure: unchanged. No learning barriers present. Discharge instructions provided and reviewed with the patient. Reviewed medication(s) side effects, precautions, dosing and course information. Prescription(s) given to the patient (bactrim). Patient verbalized understanding. Written instructions provided in Maori. The patient was discharged by the nurse practitioner. He was discharged home and accompanied by nwa. He left the Emergency Department via ambulance. Driving (nwa). --18:41 Vladimir Hendrix R.N. 18:40 09/12/16. BP: 145/81. HR: 97. RR: 15. O2 saturation: 98%. Pain level now 5/10. --18:41 Vladimir Hendrix R.N. Locked/Released at 09/12/2016 18:47 by Vladimir Hendrix R.N.
--- NOTE | 2016-09-12 18:31 | ED NURSING NOTES ---
Clinical Report - Nurses [facility] [address] [place] [address] 09/12/2016 15:57 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 Triage time 16:03. Acuity: LEVEL 3. Chief Complaint: BOSWELL PROBLEM and HEMATURIA. JOE COMA SCORE: [place] Coma Scale: 15- eyes open spontaneously (4); best verbal response- oriented x 4 (5); best motor response- obeys commands (6). --16:07 Vladimir Hendrix R.N. 16:03 09/12/16. BP: 174/102. HR: 94. RR: 16. O2 saturation: 100%. Temp: 99.5 F. Pain level now 8/10. --16:07 Vladimir Hendrix R.N. Weight: 73.4 kg stated. Height/Length: 70 inches Per Patient. BMI: 23.2. --16:07 Vladimir Hendrix R.N. Medications Aspirin Oral (Tablet 325 mg) 1 tablet. Baclofen Oral 20 mg, every 5 hrs . Dantrolene Sodium Oral 50mg , 3 x daily. Dilaudid Oral (Tablet 8 mg), PRN. FLUoxetine HCl Oral 20 mg, daily. Morphine Sulfate Oral 30 mg ER, 3x a day. Neurontin Oral 800mg, BID. Nortriptyline HCl Oral. Oxybutynin Chloride Oral 5 mg, 3x a day. TiZANidine HCl Oral 4 mg, every 5 hrs. --16:05 Vladimir Hendrix R.N. Medication/allergy information source: EMS. --16:07 Vladimir Hendrix R.N. Allergies Copaxone. Definite Severe(rash) Penicillins. Probable Moderate(rash) Pt/ state amoxicillin is okay; PCN allergy as baby.. Quinolones. --16:05 Vladimir Hendrix R.N. History Arrived by EMS. Historian: patient. Unaccompanied. This started today. ( Pt started having blood in his urine around 1400. Pt has a suprapubic cath. Pt has around 500cc of blood in the boswell bag. Pt also has a colostomy. Pt has a hx of MS.). Treatment COTTON CANDY MAKER: None. See EMS report. EMS treatment COTTON CANDY MAKER verbally communicated and report reviewed. See report. SOCIAL HX: Never smoker. No alcohol use or drug use. --16:07 Vladimir Hendrix R.N. PROBLEMS: Pharyngitis. Suprapubic cath. Hypotension. Nausea. Dehydration. Acute Pain. Pulmonary Embolism. Hypertension. Boswell Catheter Replacement. Hypokalemia. Leukocytosis. Wound Dehiscence. Urinary Retention. Nephrolithiasis. Vomiting. Immunizations. UTI - Urinary Tract Infection. Abdominal Pain. Bowel Obstruction. Multiple Sclerosis. --16:06 Vladimir Hendrix R.N. Interventions ID band on patient. To treatment room. --16:07 Vladimir Hendrix R.N. PHYSICAL ASSESSMENT GENERAL / NEURO / PSYCH: Alert. Oriented X 4. Appears in no acute distress. HEENT: Mucous membranes are pink. RESPIRATORY: Respirations not labored. Breath sounds within normal limits. CVS: Normal heart rate and rhythm. GI / : Abdomen soft and nontender. Bowel sounds within normal limits. ( Pt came in with a supra pubic cath with around 500cc of blood in the boswell bag. Pt has chronic pain and is generalized around 8/10. Pt has his boswell changed around 3 weeks.). SKIN: Skin is warm and dry. --16:09 Vladimir Hendrix R.N. NURSING PROGRESS NOTES Pulse oximeter and NIBP monitor placed on patient. Two patient identifiers checked. Call light placed in reach. Side rails up x 2. Bed placed in lowest position. Brakes of bed on. --16:09 Vladimir Hendrix R.N. Checked patient name and birthdate: patient confirmed. Blood samples drawn from the left antecubital space peripheral IV site by nurse ; labeled in presence of the patient and sent to lab: ryan saldana. --16:30 Vladimir Hendrix R.N. 16:51 09/12/16. BP: 150/89. HR: 102. RR: 15. O2 saturation: 99%. Pain level now 7/10. --16:52 Vladimir Hendrix R.N. 16:56 09/12/2016 Ibuprofen PO 800 mg given. Allergies verified and confirmed 5 rights. --16:56 Simeon, Vladimir, R.N. ( Pt was given ibuprofen for a headache.). --17:12 Vladimir Hendrix R.N. ( Pt is resting in bed.). --17:31 Vladimir Hendrix R.N. 17:30 09/12/16. BP: 137/84. HR: 92. RR: 14. O2 saturation: 99%. Pain level now 5/10. --17:31 Vladimir Hendrix R.N. ( Pt requested to just go home. He does not want anything done and is tired of the ER. PA was informed of the patient's wishes. [facility] was called for transport.). --18:09 Vladimir Hendrix R.N. 18:12 09/12/16. BP: 144/77. HR: 96. RR: 15. O2 saturation: 99%. Pain level now 5/10. --18:12 Vladimir Hendrix R.N. 18:42 09/12/2016 Ibuprofen PO 800 mg given. Allergies verified and confirmed 5 rights. --18:42 Vladimir Hendrix R.N. 18:42 09/12/2016 Bactrim DS (Sulfamethoxazole-TMP DS) PO 1 tab given. Allergies verified and confirmed 5 rights. --18:42 Vladimir Hendrix R.N. DISPOSITION / DISCHARGE Departure time: 18:40. Condition at departure: unchanged. No learning barriers present. Discharge instructions provided and reviewed with the patient. Reviewed medication(s) side effects, precautions, dosing and course information. Prescription(s) given to the patient (bactrim). Patient verbalized understanding. Written instructions provided in Wolof. The patient was discharged by the nurse practitioner. He was discharged home and accompanied by nwa. He left the Emergency Department via ambulance. Driving (nwa). --18:41 Vladimir Hendrix R.N. 18:40 09/12/16. BP: 145/81. HR: 97. RR: 15. O2 saturation: 98%. Pain level now 5/10. --18:41 Vladimir Hendrix R.N. Locked/Released at 09/12/2016 18:47 by Vladimir Hendrix R.N.
--- NOTE | 2016-09-12 20:08 | ED DISCHARGE INSTRUCTIONS ---
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 Not associated with obstruction. INSTRUCTIONS Drink plenty of fluids for the next 24 hours until better. Warnings: GENERAL WARNINGS: Return or contact your physician immediately if your condition worsens or changes unexpectedly, if not improving as expected, or if other problems arise. Specifically return if problem worsens. Prescription Medications: Bactrim DS 800 mg / 160 mg: take 1 tablet orally every 12 hours for 10 days. No refill. Follow-up: Follow up with your doctor in about three days even if well. Call for an appointment. Summary of care provided to patient. Understanding of the discharge instructions verbalized by patient. ADDITIONAL INFORMATION Bladder Infection,Male (Adult) A bladder infection ("cystitis" or "UTI") usually causes a constant urge to urinate, and a burning when passing urine. Urine may be cloudy, smelly or dark. There may be also be pain in the lower abdomen. Cystitis in males is not common. It may be caused by a partial blockage in the urinary system that keeps the bladder from emptying completely. This is most often related to an enlarged prostate gland. Home Care: Drink lots of fluids (at least 6-8 glasses a day). This will flush the bacteria out of your bladder. Avoid sexual intercourse until your symptoms are gone. Avoid caffeine, alcohol, and spicy foods. They could irritate the bladder. A bladder infection is treated with antibiotics. You may also be given Pyridium (generic - phenazopyridine) to reduce burning with urination. This will cause urine to become a bright orange color, which can stain clothing. Follow Up with your doctor or this facility if ALL symptoms have not cleared within five days. It is important to keep your follow up appointment to discuss with your doctor the need for further tests of the urinary tract. Get Prompt Medical Attention if any of the following occur: Fever of 100.4F (38C) or higher, or as directed by your healthcare provider No improvement by the third day of treatment Increasing back or abdominal pain Repeated vomiting; unable to keep medicine down Weakness, dizziness or fainting Blood In The Urine Blood in the urine ("hematuria") has many possible causes. If it occurs after an injury (such as a car accident or fall), it is most often a sign of bruising to the kidney or bladder. Common medical causes of blood in the urine include urinary tract infection, kidney stone, inflammation, tumors, or certain other diseases of the kidney or bladder. Menstruation can cause blood to appear in the urine sample, although it is not coming from the urinary tract. If only a trace amount of blood is present, it will show up on the urine test, even though the urine may be yellow and not pink or red. This may occur with any of the above conditions, as well as heavy exercise or high fever. In this case, your doctor may want to repeat the urine test on another day. This will show if the blood is still present. If so, then other tests can be done to find out the cause. Home Care: If your urine does not appear bloody (pink, brown or red) then you do not need to restrict your activity in any way. If you can see blood in your urine, rest and avoid heavy exertion until your next exam. Do not use aspirin or anti-inflammatory medicine like ibuprofen (Motrin, Advil) or naproxen (Naprosyn, Aleve). These thin the blood and may increase bleeding. Follow Up with your doctor or as advised by our staff. If you were injured and had blood in your urine, you should have a repeat urine test in 1-2 days. Contact your doctor or return to this facility for this test. [NOTE: A radiologist will review any X-rays that were taken. We will notify you of any new findings that may affect your care.] Get Prompt Medical Attention if any of the following occur: Bright red blood or blood clots in the urine (if a new symptom) Weakness, dizziness or fainting New groin, abdominal or back pain Fever of 100.4F (38C) or higher, or as directed by your healthcare provider Repeated vomiting Bleeding from nose, gums or easy bruising Sulfamethoxazole, Trimethoprim Oral tablet What is this medicine? SULFAMETHOXAZOLE; TRIMETHOPRIM or SMX-TMP (suhl fuh meth OK mona zohl; trye METH oh prim) is a combination of a sulfonamide antibiotic and a second antibiotic, trimethoprim. It is used to treat or prevent certain kinds of bacterial infections. It will not work for colds, flu, or other viral infections. How should I use this medicine? Take this medicine by mouth with a full glass of water. Follow the directions on the prescription label. Take your medicine at regular intervals. Do not take it more often than directed. Do not skip doses or stop your medicine early. Talk to your clinical biochemical geneticist regarding the use of this medicine in children. Special care may be needed. This medicine has been used in children as young as 2 months of age. What side effects may I notice from receiving this medicine? Side effects that you should report to your doctor or health healthcare project manager as soon as possible: allergic reactions like skin rash or hives, swelling of the face, lips, or tongue breathing problems fever or chills, sore throat irregular heartbeat, chest pain joint or muscle pain pain or difficulty passing urine red pinpoint spots on skin redness, blistering, peeling or loosening of the skin, including inside the mouth unusual bleeding or bruising unusually weak or tired yellowing of the eyes or skin Side effects that usually do not require medical attention (report to your doctor or health healthcare project manager if they continue or are bothersome): diarrhea dizziness headache loss of appetite nausea, vomiting nervousness What may interact with this medicine? Do not take this medicine with any of the following medications: aminobenzoate potassium dofetilide metronidazole This medicine may also interact with the following medications: PIERO inhibitors like benazepril, enalapril, lisinopril, and ramipril cyclosporine digoxin diuretics indomethacin medicines for diabetes methenamine methotrexate phenytoin potassium supplements pyrimethamine sulfinpyrazone tricyclic antidepressants warfarin What if I miss a dose? If you miss a dose, take it as soon as you can. If it is almost time for your next dose, take only that dose. Do not take double or extra doses. Where should I keep my medicine? Keep out of the reach of children. Store at room temperature between 20 to 25 degrees C (68 to 77 degrees F). Protect from light. Throw away any unused medicine after the expiration date. What should I tell my health care provider before I take this medicine? They need to know if you have any of these conditions: anemia asthma being treated with anticonvulsants if you frequently drink alcohol containing drinks kidney disease liver disease low level of folic acid or [id number] dehydrogenase poor nutrition or malabsorption porphyria severe allergies thyroid disorder an unusual or allergic reaction to sulfamethoxazole, trimethoprim, sulfa drugs, other medicines, foods, dyes, or preservatives or trying to get breast-feeding What should I watch for while using this medicine? Tell your doctor or health healthcare project manager if your symptoms do not improve. Drink several glasses of water a day to reduce the risk of kidney problems. Do not treat diarrhea with over the counter products. Contact your doctor if you have diarrhea that lasts more than 2 days or if it is severe and watery. This medicine can make you more sensitive to the sun. Keep out of the sun. If you cannot avoid being in the sun, wear protective clothing and use a sunscreen. Do not use sun lamps or tanning beds/booths. You have been given the following additional information: Bladder Infection, Male (Adult) Hematuria Sulfamethoxazole, Trimethoprim Oral tablet (Electronically signed by Sherri Yoder A.R.N.P. 09/12/2016 20:07)
--- NOTE | 2016-09-12 20:08 | ED MAR SUMMARY ---
..... 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 Medication Administered: IBUPROFEN [PO], Dose: 800 mg PO. Medication Ordered: Ibuprofen PO 800 mg (NOW). Given 18:42 09/12/2016 Vladimir Hendrix R.N. Medication Administered: IBUPROFEN [PO], Dose: 800 mg PO. Medication Ordered: Ibuprofen PO 800 mg (NOW). Given 18:42 09/12/2016 Vladimir Hendrix R.N. Medication Administered: BACTRIM DS [PO] (SULFAMETHOXAZOLE-TMP DS), Dose: 1 tab PO. Medication Ordered: Bactrim DS PO (Tablet 800-160 mg) 1 tab (NOW).
--- NOTE | 2016-09-12 20:08 | ED MED RECONCILIATION SUMMARY ---
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 BMI: 23.2 ALLERGIES: Copaxone, Penicillins, Pt/ state amoxicillin is okay; PCN allergy as baby., Quinolones The patient's Home Medications are listed below: THE FOLLOWING MEDICATIONS NEED TO BE RECONCILED: Aspirin Oral (325 mg) 1 tablet Baclofen Oral 20 mg, every 5 hrs Dantrolene Sodium Oral 50mg , 3 x daily Dilaudid Oral (8 mg), PRN FLUoxetine HCl Oral 20 mg, daily Morphine Sulfate Oral 30 mg ER, 3x a day Neurontin Oral 800mg, BID Nortriptyline HCl Oral Oxybutynin Chloride Oral 5 mg, 3x a day TiZANidine HCl Oral 4 mg, every 5 hrs The source(s) of the original Home Medication information: EMS The following Medications were given to the patient in the Emergency Department: Ibuprofen [PO] PO 800 mg, administered: 09/12/2016 4:56:00 PM Ibuprofen [PO] PO 800 mg, administered: 09/12/2016 6:42:00 PM Bactrim DS [PO] PO 1 tab, administered: 09/12/2016 6:42:00 PM The following Medications were prescribed to the patient: Bactrim DS 800 mg / 160 mg: take 1 tablet orally every 12 hours for 10 days. No refill. -- Sherri Yoder A.R.N.PFrancis
--- NOTE | 2016-09-12 20:08 | ED MED RECONCILIATION SUMMARY ---
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 BMI: 23.2 ALLERGIES: Copaxone, Penicillins, Pt/ state amoxicillin is okay; PCN allergy as baby., Quinolones The patient's Home Medications are listed below: THE FOLLOWING MEDICATIONS NEED TO BE RECONCILED: Aspirin Oral (325 mg) 1 tablet Baclofen Oral 20 mg, every 5 hrs Dantrolene Sodium Oral 50mg , 3 x daily Dilaudid Oral (8 mg), PRN FLUoxetine HCl Oral 20 mg, daily Morphine Sulfate Oral 30 mg ER, 3x a day Neurontin Oral 800mg, BID Nortriptyline HCl Oral Oxybutynin Chloride Oral 5 mg, 3x a day TiZANidine HCl Oral 4 mg, every 5 hrs The source(s) of the original Home Medication information: EMS The following Medications were given to the patient in the Emergency Department: Ibuprofen [PO] PO 800 mg, administered: 09/12/2016 4:56:00 PM Ibuprofen [PO] PO 800 mg, administered: 09/12/2016 6:42:00 PM Bactrim DS [PO] PO 1 tab, administered: 09/12/2016 6:42:00 PM The following Medications were prescribed to the patient: Bactrim DS 800 mg / 160 mg: take 1 tablet orally every 12 hours for 10 days. No refill. -- Sherri Yoder A.R.N.PFrancis
--- NOTE | 2016-09-12 20:08 | ED MAR SUMMARY ---
..... 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 Medication Administered: IBUPROFEN [PO], Dose: 800 mg PO. Medication Ordered: Ibuprofen PO 800 mg (NOW). Given 18:42 09/12/2016 Vladimir Hendrix R.N. Medication Administered: IBUPROFEN [PO], Dose: 800 mg PO. Medication Ordered: Ibuprofen PO 800 mg (NOW). Given 18:42 09/12/2016 Vladimir Hendrix R.N. Medication Administered: BACTRIM DS [PO] (SULFAMETHOXAZOLE-TMP DS), Dose: 1 tab PO. Medication Ordered: Bactrim DS PO (Tablet 800-160 mg) 1 tab (NOW).
== END 2016-09-12 18:40 | disposition home or self-care (01) ==
LOC: ED SRH 15:54
DX: N30.01 Acute cystitis with hematuria (principal); T83.511A Infection and inflammatory reaction due to indwelling urethral catheter, initial encounter; I10 Essential (primary) hypertension; G35 Multiple sclerosis; Z88.0 Allergy status to penicillin; Z88.1 Allergy status to other antibiotic agents; Z79.899 Other long term (current) drug therapy
CPT/HCPCS: 90004; 90100; 90148; 90469; 95059

== ENCOUNTER 2016-10-02 17:57 | Emergency (ER) | payer OTHER ==
--- NOTE | 2016-10-02 19:29 | DIAGNOSTIC IMAGING REPORT ---
PROCEDURE: XR FOOT 3 VIEWS - LEFT INDICATION: TRAUMA/INJURY TECHNIQUE: Three views. COMPARISON: None. FINDINGS: Cortical irregularity at the base of the left fifth proximal phalanx suggestive of a nondisplaced fracture. Moderate plantar calcaneal spur. Severe osteopenia. Mild first MTP joint degenerative changes. IMPRESSION: 1. Left fifth proximal phalanx cortical irregularity suspicious for a nondisplaced fracture. Correlate clinically 2. Severe osteopenia
--- NOTE | 2016-10-02 19:35 | ED NURSING NOTES ---
Clinical Report - Nurses [facility] [address] [place] [address] 10/02/2016 17:59 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 TRIAGE Triage time 18:05. Acuity: LEVEL 4. Alert. --18:13 Sara Manuel R.N. 18:03 10/02/16. BP: 147/79. HR: 69. RR: 18. O2 saturation: 100%. Temp: 97.9 F. Pain level now: 0/10. --18:13 Sara Manuel R.N. Chief Complaint: INJURY TO THE LEFT FOURTH TOE (Laceration). --01:55 Helen Tejada. Weight: 73.4 kg stated. Height/Length: 70 inches Per Patient. BMI: 23.2. --18:15 Sara Manuel R.N. Medications Aspirin Oral (Tablet 325 mg) 1 tablet. Baclofen Oral 20 mg, every 5 hrs . Dantrolene Sodium Oral 50mg , 3 x daily. Dilaudid Oral (Tablet 8 mg), PRN. FLUoxetine HCl Oral 20 mg, daily. Morphine Sulfate Oral 30 mg ER, 3x a day. Neurontin Oral 800mg, BID. Nortriptyline HCl Oral. Oxybutynin Chloride Oral 5 mg, 3x a day. TiZANidine HCl Oral 4 mg, every 5 hrs. --18:08 Sara Manuel R.N. Allergies Copaxone. Definite Severe(rash) Penicillins. Probable Moderate(rash) Pt/ state amoxicillin is okay; PCN allergy as baby.. Quinolones. --18:08 Sara Manuel R.N. History Arrived by private vehicle. Historian: patient. Primary physician ([place]). ( Pt states his wheelchair took off, and left 4th toe digit of foot was injured). This occurred just prior to arrival and today. He sustained a laceration from a blunt force (left 4th toe, between 4th and 5th). PAST MEDICAL HX: Tetanus status: unknown. SOCIAL HX: Never smoker. No alcohol use or drug use. NUTRITIONAL RISK ASSESSMENT: The nutritional risk assessment revealed no deficiencies. --18:13 Sara Manuel R.N. PROBLEMS: Pharyngitis. Suprapubic cath. Hypotension. Nausea. Dehydration. Acute Pain. Pulmonary Embolism. Hypertension. Yuen Catheter Replacement. Hypokalemia. Leukocytosis. Wound Dehiscence. Urinary Retention. Nephrolithiasis. Vomiting. UTI - Urinary Tract Infection. Abdominal Pain. Bowel Obstruction. Multiple Sclerosis. --18:09 Sara Manuel R.N. ADDITIONAL SURGERIES: Abdominal surgery to close a hole that had burrowed to his indwelling catheter. Appendectomy. Colonoscopy. Colostomy. Shoulder Surgery. Suprapubic cystostomy. --18:09 Sara Manuel R.N. Interventions ID band on patient. To room. --18:13 Sara Manuel R.N. PHYSICAL ASSESSMENT 18:14 10/02/16. To room via stretcher. GENERAL / NEURO / PSYCH: Oriented X 4. Alert. Appears in no acute distress. EXTREMITIES: Left fourth toe: laceration with controlled bleeding. --18:14 Sara Manuel R.N. NURSING PROGRESS NOTES 18:14 10/02/16. Patient identifiers checked. Call light placed in reach. Bed placed in lowest position. Patient ready for evaluation- chart flagged. --18:14 Sara Manuel R.N. ( Caregiver arrived.). --18:15 Sara Manuel R.N. <<STRICKEN ENTRY-- Wound cleansed with sterile saline and chlorhexidine. Wound irrigated with 500 mL sterile NS using a high-pressure irrigation system; patient tolerated procedure well. --19:19 Joan Morrison --END STRIKE>> Correction --19:19 Joan Morrison 18:15. Wound cleansed. Wound cleansed with sterile saline and chlorhexidine. Wound irrigated with 500 mL sterile NS using a high-pressure irrigation system; patient tolerated procedure well. --19:21 Joan Morrison 19:54 10/02/2016 [id number] PERTUSSIS IM 0.5 mL given. (Lot#: [id number], expiration date: 12/24/2017, [employer]: sanofi pasteur). Given in the left deltoid. Allergies verified and confirmed 5 rights. Vaccine information statement provided to the patient. --19:54 Sana Dias 20:15 10/02/16. ( Patient turned to his side, pillows used. Patient has no complaints at this time.). --20:15 Helen Tejada ( 600 ml of urine drained out of Yuen prior to departure). --21:01 Helen Tejada 21:01 10/02/16. BP: 148/84. HR: 100. RR: 20. O2 saturation: 100% on room air. Temp: 98 F (oral). --21:01 Helen Tejada. DISPOSITION / DISCHARGE Condition at departure: improved. ( dressing applied to foot). No learning barriers present. Discharge instructions provided and reviewed with the patient. Reviewed medication(s) side effects, precautions, dosing and course information. Prescription(s) given to the patient. Patient verbalized understanding. Written instructions provided in Guatemalan. No warning instructions, treatment instructions, referrals given to the patient, diet instructions or activity restrictions. No note given, follow up contact number given or stop smoking instructions. The patient was discharged by the physician assistant finance director. He was discharged home. He left the Emergency Department via private vehicle and on a stretcher. Driving (ems). FALL RISK ASSESSMENT: Fall risk assessment completed. No fall risk identified. --19:57 Sana Dias 19:54 10/02/16. BP: 148/84. HR: 72. RR: 16. O2 saturation: 100%. Temp: deferred. Pain level now: 0/10. --19:57 Sana Dias Departure time: :Oct 02 2016. Transported via stretcher by EMS. --21:02 Helen Tejada. Locked/Released at 10/03/2016 1:56 by Helen Tejada,
--- NOTE | 2016-10-02 19:35 | ED ORDER SUMMARY ---
..... 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 OrderSheet [facility] VisitID: [id number] [address] [place] [address] 56y, M Registration Date/Time: 10/02/2016 ORDER SHEET Weight: 73.4 kg (stated) Allergies: Copaxone, Penicillins, Pt/ state amoxicillin is okay; PCN allergy as baby., Quinolones GENERAL ORDERS: Foot 3V Left Urgent (18:50 10/02/2016 JCoates) (Ack 18:51 Lavelle) (20:37 Hilary) MEDICATION ORDERS: Unfsguw-Lztzaz-Mypne Pertussis IM 0.5 mL (NOW) (18:50 10/02/2016 JCoates) (Ack 19:36 Aniyah) (19:54 TBowen R.N.) IV FLUIDS: ORDER SHEET NOTES: [Electronically signed by Cristobal Plata (23:26 10/02/2016)] [Electronically signed by Helen Tejada (01:56 10/03/2016)] [Electronically locked/signed by Helen Tejada (01:56 10/03/2016)]
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
--- NOTE | 2016-10-02 19:35 | ED ORDER SUMMARY ---
..... 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 OrderSheet [facility] VisitID: [id number] [address] [place] [address] 56y, M Registration Date/Time: 10/02/2016 ORDER SHEET Weight: 73.4 kg (stated) Allergies: Copaxone, Penicillins, Pt/ state amoxicillin is okay; PCN allergy as baby., Quinolones GENERAL ORDERS: Foot 3V Left Urgent (18:50 10/02/2016 JCoates) (Ack 18:51 Lavelle) (20:37 Hilary) MEDICATION ORDERS: Myemycg-Datcba-Zxplc Pertussis IM 0.5 mL (NOW) (18:50 10/02/2016 JCoates) (Ack 19:36 Aniyah) (19:54 TBowen R.N.) IV FLUIDS: ORDER SHEET NOTES: [Electronically signed by Cristobal Plata (23:26 10/02/2016)] [Electronically signed by Helen Tejada (01:56 10/03/2016)] [Electronically locked/signed by Helen Tejada (01:56 10/03/2016)]
--- NOTE | 2016-10-02 19:35 | ED NURSING NOTES ---
Clinical Report - Nurses [facility] [address] [place] [address] 10/02/2016 17:59 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 TRIAGE Triage time 18:05. Acuity: LEVEL 4. Alert. --18:13 Sara Manuel R.N. 18:03 10/02/16. BP: 147/79. HR: 69. RR: 18. O2 saturation: 100%. Temp: 97.9 F. Pain level now: 0/10. --18:13 Sara Manuel R.N. Chief Complaint: INJURY TO THE LEFT FOURTH TOE (Laceration). --01:55 Helen Tejada. Weight: 73.4 kg stated. Height/Length: 70 inches Per Patient. BMI: 23.2. --18:15 Sara Manuel R.N. Medications Aspirin Oral (Tablet 325 mg) 1 tablet. Baclofen Oral 20 mg, every 5 hrs . Dantrolene Sodium Oral 50mg , 3 x daily. Dilaudid Oral (Tablet 8 mg), PRN. FLUoxetine HCl Oral 20 mg, daily. Morphine Sulfate Oral 30 mg ER, 3x a day. Neurontin Oral 800mg, BID. Nortriptyline HCl Oral. Oxybutynin Chloride Oral 5 mg, 3x a day. TiZANidine HCl Oral 4 mg, every 5 hrs. --18:08 Sara Manuel R.N. Allergies Copaxone. Definite Severe(rash) Penicillins. Probable Moderate(rash) Pt/ state amoxicillin is okay; PCN allergy as baby.. Quinolones. --18:08 Sara Manuel R.N. History Arrived by private vehicle. Historian: patient. Primary physician ([place]). ( Pt states his wheelchair took off, and left 4th toe digit of foot was injured). This occurred just prior to arrival and today. He sustained a laceration from a blunt force (left 4th toe, between 4th and 5th). PAST MEDICAL HX: Tetanus status: unknown. SOCIAL HX: Never smoker. No alcohol use or drug use. NUTRITIONAL RISK ASSESSMENT: The nutritional risk assessment revealed no deficiencies. --18:13 Sara Manuel R.N. PROBLEMS: Pharyngitis. Suprapubic cath. Hypotension. Nausea. Dehydration. Acute Pain. Pulmonary Embolism. Hypertension. Yuen Catheter Replacement. Hypokalemia. Leukocytosis. Wound Dehiscence. Urinary Retention. Nephrolithiasis. Vomiting. UTI - Urinary Tract Infection. Abdominal Pain. Bowel Obstruction. Multiple Sclerosis. --18:09 Sara Manuel R.N. ADDITIONAL SURGERIES: Abdominal surgery to close a hole that had burrowed to his indwelling catheter. Appendectomy. Colonoscopy. Colostomy. Shoulder Surgery. Suprapubic cystostomy. --18:09 Sara Manuel R.N. Interventions ID band on patient. To room. --18:13 Sara Manuel R.N. PHYSICAL ASSESSMENT 18:14 10/02/16. To room via stretcher. GENERAL / NEURO / PSYCH: Oriented X 4. Alert. Appears in no acute distress. EXTREMITIES: Left fourth toe: laceration with controlled bleeding. --18:14 Sara Manuel R.N. NURSING PROGRESS NOTES 18:14 10/02/16. Patient identifiers checked. Call light placed in reach. Bed placed in lowest position. Patient ready for evaluation- chart flagged. --18:14 Sara Manuel R.N. ( Caregiver arrived.). --18:15 Sara Manuel R.N. <<STRICKEN ENTRY-- Wound cleansed with sterile saline and chlorhexidine. Wound irrigated with 500 mL sterile NS using a high-pressure irrigation system; patient tolerated procedure well. --19:19 Joan Morrison --END STRIKE>> Correction --19:19 Joan Morrison 18:15. Wound cleansed. Wound cleansed with sterile saline and chlorhexidine. Wound irrigated with 500 mL sterile NS using a high-pressure irrigation system; patient tolerated procedure well. --19:21 Joan Morrison 19:54 10/02/2016 [id number] PERTUSSIS IM 0.5 mL given. (Lot#: [id number], expiration date: 12/24/2017, [employer]ile Helper: sanofi pasteur). Given in the left deltoid. Allergies verified and confirmed 5 rights. Vaccine information statement provided to the patient. --19:54 Sana Dias 20:15 10/02/16. ( Patient turned to his side, pillows used. Patient has no complaints at this time.). --20:15 Helen Tejada ( 600 ml of urine drained out of Yuen prior to departure). --21:01 Helen Tejada 21:01 10/02/16. BP: 148/84. HR: 100. RR: 20. O2 saturation: 100% on room air. Temp: 98 F (oral). --21:01 Helen Tejada. DISPOSITION / DISCHARGE Condition at departure: improved. ( dressing applied to foot). No learning barriers present. Discharge instructions provided and reviewed with the patient. Reviewed medication(s) side effects, precautions, dosing and course information. Prescription(s) given to the patient. Patient verbalized understanding. Written instructions provided in Thai. No warning instructions, treatment instructions, referrals given to the patient, diet instructions or activity restrictions. No note given, follow up contact number given or stop smoking instructions. The patient was discharged by the physician multimedia assistant. He was discharged home. He left the Emergency Department via private vehicle and on a stretcher. Driving (ems). FALL RISK ASSESSMENT: Fall risk assessment completed. No fall risk identified. --19:57 Sana Dias 19:54 10/02/16. BP: 148/84. HR: 72. RR: 16. O2 saturation: 100%. Temp: deferred. Pain level now: 0/10. --19:57 Sana Dias Departure time: :Oct 02 2016. Transported via stretcher by EMS. --21:02 Helen Tejada. Locked/Released at 10/03/2016 1:56 by Helen Tejada,
--- NOTE | 2016-10-03 01:56 | ED DISCHARGE INSTRUCTIONS ---
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 General Instructions [facility] VisitID: [id number] [place] [address] 56y, M Registration Date/Time: 10/02/2016 Multiple deep lacerations to the left 4th toe and left 5th toe.No infection. INSTRUCTIONS Protect wound and keep wound area clean. Change dressing twice daily. You may wash wounds briefly, then dry. Clean wounds with hydrogen peroxide daily. Apply bacitracin twice daily. Sutures should be removed in seven days. No dietary restrictions. Warnings: COMPLICATIONS: Complications from this condition include: possible infection and possible injury to a nerve. INFECTION: Watch for signs of infection (increasing heat and redness, pus-like drainage, swelling, or increased pain). Return or see your doctor if these signs occur. TETANUS: You were given a tetanus shot during your visit. Make a note for future reference. Prescription Medications: Cephalexin 500 mg: take 1 capsule orally every 6 hours for 5 days. No refill. OTC Medications: Bacitracin ointment (available over the counter): use according to label instructions. Follow-up: Return to the emergency department in seven days even if well for suture removal. Understanding of the discharge instructions verbalized by patient. ADDITIONAL INFORMATION Laceration (All Closures) Alaceration is a cut through the skin. This will usually require stitches (sutures) or mitchell if it is deep. Minor cuts may be treated with a surgical tape closure orskin glue. Home care The following guidelines will help you care for your laceration at home: Extremity, face, or trunk wounds Keep the wound clean and dry. If a bandage was applied and it becomes wet or dirty, replace it. Otherwise, leave it in place for the first 24 hours. If stitches or mitchell were used, clean the wound daily. After removing the bandage, wash the area with soap and water. Use a wet cotton swab to loosen and remove any blood or crust that forms. The doctor may prescribe an antibiotic cream or ointment to prevent infection. Do not stop taking this medication until you have finished the prescribed course or the doctor tells you to stop. The doctor may also prescribe medications for pain. Follow the doctors instructions for taking these medications. You may remove the bandage to shower as usual after the first 24 hours, but do not soak the area in water (no swimming) until the stitches or mitchell are removed. If surgical tape was used, keep the area clean and dry. If it becomes wet, blot it dry with a towel. If skin glue was used, do not scratch, rub, or pick at the adhesive film. Do not place tape directly over the film. Do not apply liquid, ointment, or creams to the wound while the film is in place. Do not clean the wound with peroxide and do not apply ointments. Avoid activities that cause heavy sweating until the film has fallen off. Protect the wound from prolonged exposure to sunlight or tanning lamps. You may shower as usual but do not soak the wound in water (no baths or swimming). The film will fall off by itself in 510 days. Scalp wounds During the first two days, you may carefully rinse your hair in the shower to remove blood, glass or dirt particles. After two days, you may shower and shampoo your hair normally. Do not soak your scalp in the tub or go swimming until the stitches or mitchell have been removed. Talk with your doctor before applying any antibiotic ointment to the wound. Mouth wounds Eat soft foods to reduce pain. If the cut is inside of your mouth, clean by rinsing after each meal and at bedtime with a mixture of equal parts water and hydrogen peroxide (do not swallow!). Or, you can use a cotton swab to directly apply hydrogen peroxide onto the cut. Mouth wounds can be painful when eating. You may use an [id number] local numbing solution for pain relief. If this is not available, you may use any numbing solution for teething babies. You may apply this directly to the sores with a cotton-tip swab or with your finger. Follow-up care Follow up with your health care provider. Most skin wounds heal within ten days. Mouth and facial wounds heal within five days. However, even with proper treatment, a wound infection may sometimes occur. Therefore, you should check the wound daily for signs of infection listed below. Stitches should be removed from the face within five days; stitches and mitchell should be removed from other parts of the body within 714 days. If dissolving stitches were used in the mouth, these will fall out or dissolve without the need for removal. If tape closures were used, remove them yourself if they have not fallen off after 7 days. Ifskin glue was used, the film will fall off by itself in 510 days. When to seek medical care Get prompt medical attention if any of these occur: Bleeding not controlled by direct pressure Signs of infection, including increasing pain in the wound, increasing wound redness or swelling, or pus coming from the wound Fever of 100.4F (38C) or higher, or as directed by your health care provider Stitches or mitchell come apart or fall out or surgical tape falls off before 7 days Wound edges re-open Bandage Change If the bandage becomes wet or dirty, replace it. Otherwise, leave it in place for the first 24 hours. Then once a day: After removing the bandage, wash the area with soap and water. Use a wet cotton swab to loosen and remove any blood or crust that forms on the wound. After cleaning, apply a thin layer of antibiotic ointment or cream. Reapply the bandage. You may shower as usual after the first 24 hours. If the bandage is on an arm or leg, cover it with a plastic bag rubber banded at both ends before showering. No tub baths or swimming until the bandage is removed and the wound healed (at least 7 days). Laceration, Extremity (Sutures, Mitchell, Or Tape) A laceration is a cut through the skin. This will usually require stitches (sutures) or mitchell if it is deep. Minor cuts may be treated with surgical tape closures. Home care The following guidelines will help you care for your laceration at home: Keep the wound clean and dry. If a bandage was applied and it becomes wet or dirty, replace it. Otherwise, leave it in place for the first 24 hours, then change it once a day or as directed. If stitches or mitchell were used, clean the wound daily: After removing the bandage, wash the area with soap and water. Use a wet cotton swab to loosen and remove any blood or crust that forms. After cleaning, keep the wound clean and dry. Talk with your doctor before applying any antibiotic ointment to the wound. Reapply the bandage. You may remove the bandage to shower as usual after the first 24 hours, but do not soak the area in water (no swimming) until the stitches or mitchell are removed. If surgical tape closures were used, keep the area clean and dry. If it becomes wet, blot it dry with a towel. The doctor may prescribe an antibiotic cream or ointment to prevent infection. Do not stop taking this medication until you have finished the prescribed course or the doctor tells you to stop. The doctor may also prescribe medications for pain. Follow the doctors instructions for taking these medications. If you have chronic liver or kidney disease or ever had a stomach ulcer or GI bleeding, talk with your doctor before using these medicines. Follow-up care Follow up with your health care provider. Most skin wounds heal within ten days. However, an infection may sometimes occur despite proper treatment. Therefore, check the wound daily for the signs of infection listed below. Stitches and mitchell should be removed within 714 days. If surgical tape closures were used, you may remove them after 10 days, if they have not fallen off by then. Notify your doctor if you notice persistent numbness or weakness in the injured extremity. (Note:A radiologist will review any X-rays that were taken. We will notify you of any new findings that may affect your care.) When to seek medical care Get prompt medical attention if any of these occur: Increasing pain in the wound Redness, swelling, or pus coming from the wound Fever of 100.4F (38C) or higher, or as directed by your health care provider If stitches or mitchell come apart or fall out before your next appointment If the surgical tape closures fall off within seven days, or the wound edges re-open Bleeding not controlled by direct pressure Laceration, Tendon A tendon is a thick cord that joins muscle to bone and causes the joints to bend and straighten. One of your tendons has been cut. A tendon cut may be partial or complete. A complete cut of the tendon and a severe partial cut will need stitches (sutures) in the tendon. Smaller cuts in the tendon do not require stitches; however, the cut in the skin will need to be closed with stitches or mitchell. A cut tendon takes about 6 weeks to regain its full strength. Forceful use of the tendon too soon could cause the weakened tendon to tear apart. Antibiotics may be prescribed to reduce the risk of infection in the tendon. Some tendons are located close to the nerves, therefore, it is possible to bruise or cut a nerve when you injure a tendon. This may cause numbness or weakness of the hand or foot. Because of local pain and swelling at the time of injury it can be difficult to fully assess nerve function. If you notice numbness or weakness that persists, notify your doctor. A nerve repair can be done 5-10 days after injury. Home Care: Keep the injured part elevated during the first 48 hours to reduce swelling and pain. If a splint was applied, leave it in place until your next exam (unless told otherwise). Keep the part dry when bathing by covering it in a plastic bag sealed with a rubber band at the top end. If no splint was applied, you may change the bandage after 24 hours and begin cleaning the wound once a day with soap and water. After removing the bandage, wash the area with soap and water. Use a wet cotton swab (Q tip) to loosen and remove any blood or crust that forms.After cleaning, apply a thin layer of rapi-xig-yljryff antibiotic ointment. This will keep the wound clean and make it easier to remove the stitches or mitchell. Reapply a fresh bandage. You may remove the bandage to shower as usual after the first 24 hours, but do not soak the area in water (no swimming) until the stitches or mitchell are removed. If antibiotics were prescribed, take them until they are gone. You may use acetaminophen (Tylenol) or ibuprofen (Motrin, Advil) to control pain, unless another pain medicine was prescribed. [ NOTE : If you have chronic liver or kidney disease or ever had a stomach ulcer or GI bleeding, talk with your doctor before using these medicines.] Follow Up: Most skin wounds heal within ten days. However, an infection may sometimes occur despite proper treatment. Therefore, check your wound daily f or the warning signs listed below. Stitches placed in the tendon will not need to be removed. Stitches or mitchell placed in the skin will be removed in 7-10 days. Be sure to keep your appointment for removal. At your follow up visit, talk to your doctor about when to begin exercising the tendon in order to prevent stiffness. Notify your doctor if you notice persistent numbness or weakness in the injured extremity.We will notify you of any new findings that may affect your care. Get Prompt Medical Attention If Any Of The Following Occur: Increasing pain in the wound Redness, swelling or pus coming from the wound Fever of 100.4F (38C) or higher, or as directed by your healthcare provider Stitches or mitchell come apart or fall out before your next appointment Bleeding is not controlled by direct pressure Cephalexin Monohydrate Oral tablet What is this medicine? CEPHALEXIN (sef a DA in) is a cephalosporin antibiotic. It is used to treat certain kinds of bacterial infections It will not work for colds, flu, or other viral infections. How should I use this medicine? Take this medicine by mouth with a full glass of water. Follow the directions on the prescription label. This medicine can be taken with or without food. Take your medicine at regular intervals. Do not take your medicine more often than directed. Take all of your medicine as directed even if you think you are better. Do not skip doses or stop your medicine early. Talk to your radioisotope production operator regarding the use of this medicine in children. While this drug may be prescribed for selected conditions, precautions do apply. What side effects may I notice from receiving this medicine? Side effects that you should report to your doctor or health ocular care technician as soon as possible: allergic reactions like skin rash, itching or hives, swelling of the face, lips, or tongue breathing problems pain or trouble passing urine redness, blistering, peeling or loosening of the skin, including inside the mouth severe or watery diarrhea unusually weak or tired yellowing of the eyes, skin Side effects that usually do not require medical attention (report to your doctor or health ocular care technician if they continue or are bothersome): gas or heartburn genital or anal irritation headache joint or muscle pain nausea, vomiting What may interact with this medicine? probenecid some other antibiotics What if I miss a dose? If you miss a dose, take it as soon as you can. If it is almost time for your next dose, take only that dose. Do not take double or extra doses. There should be at least 4 to 6 hours between doses. Where should I keep my medicine? Keep out of the reach of children. Store at room temperature between 59 and 86 degrees F (15 and 30 degrees C). Throw away any unused medicine after the expiration date. What should I tell my health care provider before I take this medicine? They need to know if you have any of these conditions: kidney disease stomach or intestine problems, especially colitis an unusual or allergic reaction to cephalexin, other cephalosporins, penicillins, other antibiotics, medicines, foods, dyes or preservatives or trying to get breast-feeding What should I watch for while using this medicine? Tell your doctor or health ocular care technician if your symptoms do not begin to improve in a few days. Do not treat diarrhea with over the counter products. Contact your doctor if you have diarrhea that lasts more than 2 days or if it is severe and watery. If you have diabetes, you may get a false-positive result for sugar in your urine. Check with your doctor or health ocular care technician. You have been given the following additional information: Laceration, All Dressing Change Laceration, Extrem (Suture, Staple, Or Tape) Laceration, Tendon Cephalexin Monohydrate Oral tablet (Electronically signed by Cristobal Plata, 10/02/2016 23:26)
--- NOTE | 2016-10-03 01:56 | ED MAR SUMMARY ---
..... Medication Administration Record [facility] [address] [place] [address] 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 Visit ID: [id number] 56y, M Weight: 73.4 kg Height/Length: 70 in BMI: 23.2 ALLERGIES: Copaxone, Penicillins, Pt/ state amoxicillin is okay; PCN allergy as baby., Quinolones Given 19:54 10/02/2016 Sana Dias Medication Administered: [id number]-[id number] PERTUSSIS [IM], Dose: 0.5 mL IM. Medication Ordered: Utvtxtg-Ltjldx-Ubpfc Pertussis IM 0.5 mL (NOW).
--- NOTE | 2016-10-03 01:56 | ED MAR SUMMARY ---
..... Medication Administration Record [facility] [address] [place] [address] 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 Visit ID: [id number] 56y, M Weight: 73.4 kg Height/Length: 70 in BMI: 23.2 ALLERGIES: Copaxone, Penicillins, Pt/ state amoxicillin is okay; PCN allergy as baby., Quinolones Given 19:54 10/02/2016 Sana Dias Medication Administered: [id number]-[id number] PERTUSSIS [IM], Dose: 0.5 mL IM. Medication Ordered: Spbjlgm-Swjkjc-Owgje Pertussis IM 0.5 mL (NOW).
--- NOTE | 2016-10-03 01:56 | ED MED RECONCILIATION SUMMARY ---
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 Medication Reconciliation Report [facility] VisitID: [id number] [address] [place] [address] 56y, M Registration Date/Time: 10/02/2016 Weight: 73.4 kg Height/Length: 70 in. BMI: 23.2 ALLERGIES: Copaxone, Penicillins, Pt/ state amoxicillin is okay; PCN allergy as baby., Quinolones The patient's Home Medications are listed below: THE FOLLOWING MEDICATIONS NEED TO BE RECONCILED: Aspirin Oral (325 mg) 1 tablet Baclofen Oral 20 mg, every 5 hrs Dantrolene Sodium Oral 50mg , 3 x daily Dilaudid Oral (8 mg), PRN FLUoxetine HCl Oral 20 mg, daily Morphine Sulfate Oral 30 mg ER, 3x a day Neurontin Oral 800mg, BID Nortriptyline HCl Oral Oxybutynin Chloride Oral 5 mg, 3x a day TiZANidine HCl Oral 4 mg, every 5 hrs The source(s) of the original Home Medication information: Not obtained. The following Medications were given to the patient in the Emergency Department: [id number]-AULQK PERTUSSIS [IM] IM 0.5 mL, administered: 10/02/2016 7:54:00 PM The following Medications were prescribed to the patient: Cephalexin 500 mg: take 1 capsule orally every 6 hours for 5 days. No refill. -- Cristobal Plata Bacitracin ointment (available over the counter): use according to label instructions. -- Cristobal Plata
--- NOTE | 2016-10-03 01:56 | ED MED RECONCILIATION SUMMARY ---
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 Medication Reconciliation Report [facility] VisitID: [id number] [address] [place] [address] 56y, M Registration Date/Time: 10/02/2016 Weight: 73.4 kg Height/Length: 70 in. BMI: 23.2 ALLERGIES: Copaxone, Penicillins, Pt/ state amoxicillin is okay; PCN allergy as baby., Quinolones The patient's Home Medications are listed below: THE FOLLOWING MEDICATIONS NEED TO BE RECONCILED: Aspirin Oral (325 mg) 1 tablet Baclofen Oral 20 mg, every 5 hrs Dantrolene Sodium Oral 50mg , 3 x daily Dilaudid Oral (8 mg), PRN FLUoxetine HCl Oral 20 mg, daily Morphine Sulfate Oral 30 mg ER, 3x a day Neurontin Oral 800mg, BID Nortriptyline HCl Oral Oxybutynin Chloride Oral 5 mg, 3x a day TiZANidine HCl Oral 4 mg, every 5 hrs The source(s) of the original Home Medication information: Not obtained. The following Medications were given to the patient in the Emergency Department: [id number]-[id number]-ACIHE PERTUSSIS [IM] IM 0.5 mL, administered: 10/02/2016 7:54:00 PM The following Medications were prescribed to the patient: Cephalexin 500 mg: take 1 capsule orally every 6 hours for 5 days. No refill. -- Cristobal Plata Bacitracin ointment (available over the counter): use according to label instructions. -- Cristobal Plata
== END 2016-10-02 21:00 | disposition home or self-care (01) ==
LOC: ED SRH 17:57
DX: S91.115A Laceration without foreign body of left lesser toe(s) without damage to nail, initial encounter (principal); S92.512A Displaced fracture of proximal phalanx of left lesser toe(s), initial encounter for closed fracture; V00.838A Other accident with motorized mobility scooter, initial encounter; Y93.9 Activity, unspecified; Y99.8 Other external cause status; Y92.009 Unspecified place in unspecified non-institutional (private) residence as the place of occurrence of the external cause; I10 Essential (primary) hypertension; Z86.711 Personal history of pulmonary embolism; Z88.8 Allergy status to other drugs, medicaments and biological substances; Z88.0 Allergy status to penicillin; G35 Multiple sclerosis

== ENCOUNTER 2016-10-11 08:23 | Emergency (ER) | payer OTHER ==
--- NOTE | 2016-10-11 11:11 | DIAGNOSTIC IMAGING REPORT ---
PROCEDURE: XR CHEST 1 VIEW INDICATION: SHORTNESS OF BREATH TECHNIQUE: Single view chest. 08:57 hours COMPARISON: 12/31/2015 FINDINGS: Chronic elevation left hemidiaphragm with distended gastric bubble. Cardiomediastinal contour is stable, partially obscured by left diaphragm shadow. No central vascular congestion. The visible lung garza are clear. IMPRESSION: 1. Gaseous distention of the stomach elevating the left hemidiaphragm. 2. No visible acute cardiopulmonary disease.
--- NOTE | 2016-10-11 15:18 | DIAGNOSTIC IMAGING REPORT ---
PROCEDURE: CTA THORAX WITH CONTRAST INDICATION: SHORTNESS OF BREATH TECHNIQUE: 76 ml of Isovue 370 was injected intravenously and axial images were obtained of the chest with 3D sagittal and coronal MIP reconstructions. COMPARISON: 02/12/2015 FINDINGS: Normal opacification of the pulmonary arterial tree without filling defect. The central pulmonary arteries are normal caliber. Thoracic aorta is normal caliber with atherosclerotic calcification. The great vessels demonstrate a normal branching pattern. Heart size is normal. No pericardial effusion. No adenopathy or mediastinal masses. The esophagus is normal in caliber without hiatal hernia. The thyroid gland is normal. Moderate bilateral posterior lower lobe interstitial stranding/atelectasis. Interval resolution of right upper lobe and left lower lobe alveolar opacities. The airway is patent and branches normally. No pleural effusions or pneumothorax. Osseous structures demonstrate a minor central compression of T10, new. Chronic T12 compression fracture. The images obtained of the upper abdomen demonstrate cholelithiasis, and fluid and air filled stomach. IMPRESSION: 1. No pulmonary embolus. 2. Bilateral lower lobe atelectasis without infiltrate. 3. 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 4. Findings called to the emergency room.
--- NOTE | 2016-10-11 15:47 | ED ORDER SUMMARY ---
..... 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 OrderSheet [facility] VisitID: [id number] [address] [place] [address] 56y, M Registration Date/Time: 10/11/2016 ORDER SHEET Weight: 73 kg (stated) Allergies: Copaxone, Penicillins, Pt/ state amoxicillin is okay; PCN allergy as baby., Quinolones GENERAL ORDERS: Chest 1V Urgent (08:43 10/11/2016 Noelle Grant) (Ack 8:44 SANAMoekarl) (9:12 Hilary) CBC w Diff Urgent (08:10/11/2016 Noelle Grant) (Ack 8:44 SANAMoerner) (9:23 KHoerner) CMP Urgent (08:10/11/2016 Noelle Grant) (Ack 8:44 SANAMoerner) (9:23 KHoerner) D-Dimer Urgent (08:55 10/11/2016 Noelle Grant) (Ack 8:57 KHoerner) (9:23 KHoerner) PT with INR Urgent (09:20 10/11/2016 Daniele GOMEZ) (9:23 KHoerner) PTT Urgent (09:10/11/2016 Daniele GOMEZ) (9:23 KHoerner) CTA Thorax w Cont (No) (See report) Urgent (10:21 10/11/2016 Daniele GOMEZ) (Ack 10:31 SANAMoerner) (14:31 Benita R.N.) MEDICATION ORDERS: Clonidine PO 0.2 mg (NOW) (15:20 10/11/2016 Daniele GOMEZ) (15:25 LUKASimbeck R.N.) IV FLUIDS: IV Saline Lock (08:43 10/11/2016 Noelle Grant) (9:14 Benita R.N.) Dilaudid IV 0.5 mg (NOW) (10:10/11/2016 Daniele GOMEZ) (11:03 Benita R.N.) Zofran IV 4 mg (NOW) (10:10/11/2016 Daniele GOMEZ) (11:02 LUKASimbeck R.N.) IV NS : initial bolus 500 mL (1000 mL/hr), then 125 mL/hr for 4h (NOW); Urgent (10:21 10/11/2016 Daniele GOMEZ) (11:01 Benita R.N.) Dilaudid IV 1 mg (1mg now and 1mg in 10 minutes prn) (16:20 10/11/2016 Trinityeck R.N. verbal order read back to Daniele GOMEZ) (16:21 Trinityeck R.N.) Dilaudid IV 1 mg (NOW) (16:56 10/11/2016 Trinityeck R.N. verbal order read back to Daniele GOMEZ) (16:57 Trinityeck R.N.) Dilaudid IV 1 mg (NOW) (17:17 10/11/2016 Trinityeck R.N. verbal order read back to Daniele GOMEZ) (17:18 Trinityeck R.N.) Metoprolol IV 2.5 mg (HIGH ALERT MEDICATION, NOW) (18:23 10/11/2016 Daniele GOMEZ) (18:41 Trinityeck R.N.) Metoprolol IV 2.5 mg (HIGH ALERT MEDICATION, NOW) (18:42 10/11/2016 Trinityeck R.N. verbal order read back to Daniele GOMEZ) (18:43 Trinityeck R.N.) Metoprolol IV 5 mg (HIGH ALERT MEDICATION, NOW) (18:59 10/11/2016 LUKASimbeck R.N. verbal order read back to Daniele GOMEZ) (19:00 LUKASimbeck R.N.) ORDER SHEET NOTES: [Electronically signed by Shayla Clayton R.N. (20:15 10/11/2016)] [Electronically signed by Raleigh Curran MD (21:23 10/14/2016)] [Electronically locked/signed by Shayla Clayton R.N. (20:15 10/11/2016)]
--- NOTE | 2016-10-11 15:47 | ED NURSING NOTES ---
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 Acuity: LEVEL 3. Chief Complaint: (SOB, coughing, onset 3 days ago.). SEPSIS SCREEN: Sepsis Screen. Negative (no infection suspected/documented). Heart rate greater than 90 and respiratory rate greater than 20. JOE COMA SCORE: Anita Coma Scale: 15- eyes open spontaneously (4); best verbal response- oriented x 4 (5); best motor response- obeys commands (6). --08:59 Tyler Farrell R.N. 08:43 10/11/16. BP: 185/114 (regular adult cuff) taken on the right arm, while lying. ED physician notified. HR: 99. RR: 22. O2 saturation: 98% on room air. Temp: 98 F (oral). Pain level now: 10/24. --08:59 Tyler Farrell R.N. Weight: 73 kg stated. Height/Length: 70 inches Per Patient. BMI: 23.1. --08:48 Tyler Farrell R.N. Medications Aspirin Oral (Tablet 325 mg) 1 tablet. Baclofen Oral 20 mg, every 5 hrs . Dantrolene Sodium Oral 50mg , 3 x daily. Dilaudid Oral (Tablet 8 mg), PRN. FLUoxetine HCl Oral 20 mg, daily. Morphine Sulfate Oral 30 mg ER, 3x a day. Neurontin Oral 800mg, BID. --08:32 Tyler Farrell R.N. Oxybutynin Chloride Oral 5 mg, 3x a day. TiZANidine HCl Oral 4 mg, every 5 hrs. --08:32 Tyler Farrell R.N. The following entry was struck by Tyler Farrell R.N., 14:48 (10/11/16) Reason - other(updated). <<STRICKEN ENTRY-- Nortriptyline HCl Oral. --08:32 Tyler Farrell R.N. --END STRIKE>>. Allergies Copaxone. Definite Severe(rash) Penicillins. Probable Moderate(rash) Pt/ state amoxicillin is okay; PCN allergy as baby.. Quinolones. --08:32 Tyler Farrell R.N. History Arrived by EMS. Historian: EMS and patient. 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 SOCIAL HX: No alcohol use or drug use. ABUSE ASSESSMENT: No report of abuse. --08:59 Tyler Farrell R.N. PROBLEMS: Laceration. Pharyngitis. Suprapubic cath. Hypotension. Nausea. Dehydration. Acute Pain. Pulmonary Embolism. Hypertension. Daly Catheter Replacement. Hypokalemia. Leukocytosis. Wound Dehiscence. Urinary Retention. Nephrolithiasis. Vomiting. Immunizations. UTI - Urinary Tract Infection. Abdominal Pain. Bowel Obstruction. Multiple Sclerosis. --08:33 Tyler Farrell R.N. ADDITIONAL SURGERIES: Abdominal surgery to close a hole that had burrowed to his indwelling catheter. Appendectomy. Colonoscopy. Colostomy. Shoulder Surgery. Suprapubic cystostomy. --08:36 Tyler Farrell R.N. Assessment GENERAL / NEURO / PSYCH: Alert. Oriented X 4. Appears in pain and anxious. RESPIRATORY: Mild respiratory distress. ( rhonchi in all garza, prod cough - clear mucus). CVS: Normal sinus rhythm noted. Capillary refill less than 2 seconds. GI / : Abdomen soft and nontender. ( colostomy bag intact, ++BT, suprapubic daly patent, draining yellow urine). SKIN: Mucous membranes are pink. Skin is warm and dry. ( face flushed). --08:59 Tyler Farrell R.N. Interventions ID band on patient. To treatment room. --08:59 Tyler Farrell R.N. PHYSICAL ASSESSMENT To room via stretcher. GENERAL / NEURO / PSYCH: Alert. Appears in pain and anxious. The patient is disoriented to person, place and situation. HEENT: Pupils equal, round and reactive to light. No facial asymmetry noted. Mucous membranes are pink. RESPIRATORY: Mild respiratory distress. Cough productive of clear sputum. Bilateral rhonchi present diffusely. CVS: Normal sinus rhythm noted. Capillary refill less than 2 seconds. Pulses within normal limits. GI / : ( colostomy bag intact, suprapubic daly draining yellow urine). Abdomen soft and nontender and normal bowel sounds. SKIN: Skin is warm and dry. Normal skin turgor. --09:10 Tyler Farrell R.N. NURSING PROGRESS NOTES private eye, pulse oximeter and NIBP monitor placed on patient; forest technology professor- Lead II and V1; monitor alarms on. Patient gowned. Head of bed elevated. Two patient identifiers checked. Call light placed in reach (pt is quad, unable to use the call light. He [place] [facility] [place].). Side rails up x 2. Bed placed in lowest position. Brakes of bed on. Patient ready for evaluation- chart flagged. ( Pt repositioned and bridged with pillows.). --09:13 Tyler Farrell R.N. 08:30 10/11/2016 Site #1 started prior to arrival by EMS via IV in the left wrist with an 22g angiocath. Saline lock flushed with 10 mL saline. --09:14 Tyler Farrell R.N. 10:00 10/11/2016 Started bag #1 1000 mL IV Fluids IV NS (Saline); bolus of 500 mL over 30 minute(s) then at 125 mL/hr over 4 hour(s) via site #1 via IV pump. Allergies verified and confirmed 5 rights. IV patency established. IV site checked: no pain, redness, or swelling. IV flushed thoroughly pre- and post-medication administration. --11:01 Tyler Farrell R.N. 10:35 10/11/2016 Zofran (Ondansetron HCl) IVP 4 mg given over 1 minute(s) via site #1. Allergies verified and confirmed 5 rights. IV patency established. IV site checked: no pain, redness, or swelling. IV flushed thoroughly pre- and post-medication administration. IVP given by RN. --11:02 Tyler Farrell R.N. 10:36 10/11/2016 Dilaudid (HYDROmorphone HCl PF) IVP 0.5 mg given over 1 minute(s) via site #1. Allergies verified, confirmed 5 rights and sedative warning given to the patient. IV patency established. IV site checked: no pain, redness, or swelling. IV flushed thoroughly pre- and post-medication administration. IVP given by RN. --11:03 Tyler Farrell R.N. 11:48 10/11/2016 Site #1 removed. Bandage applied (IV site was accidentally pulled out). --12:13 Tyler Farrell R.N. 13:45. CENTRAL LINE: Central line placement performed by ED physician. Assisted by two nurses. Preparation: and central line tray set up. Patient in supine position. Hand hygiene observed, sterile barrier precautions adhered to (cap, mask, gown, gloves and large sterile sheet) and chlorhexidine skin antisepsis used. 18g triple lumen central line placed to the left femoral vein. Dressing applied. Tubing secured. Proximal port, medial port and distal port flushed with 10 mL saline. Post procedure: he was clinically the same. Estimated blood loss: 1 mL. Total time of assist / procedure: 15 minutes. --14:07 Saravanan Box R.N. 14:00. Patient transported to PR by stretcher with tech. --14:08 Saravanan Box R.N. 09:30 10/11/16. BP: 170/100. HR: 101. RR: 16. O2 saturation: 97% on room air. Pain level now: 2/10. Additional comments: Generalized aches and pains. --14:19 Saravanan Box R.N. Patient returned from PR by stretcher with [employer]. --14:24 Saravanan Box R.N. 12:30 10/11/16. BP: 171/101. HR: 100. RR: 18. O2 saturation: 95% on room air. Pain level now: 2/10. Additional comments: Generalized pain. --14:26 Saravanan Box R.N. 13:45 10/11/16. BP: 178/114. HR: 101. RR: 17. O2 saturation: 95% on room air. Pain level now: 3/10. Additional comments: Generalized aches and pains. --14:29 Saravanan Box R.N. 13:30 10/11/2016 Site #2 started via central line in the left femoral, with aseptic technique and good blood return; one attempt. Saline lock flushed with 10 mL saline (placed by WISAM GOMEZ). --14:43 Tyler Farrell R.N. 14:40 10/11/2016 Dilaudid (HYDROmorphone HCl PF) IVP 0.5 mg given over 1 minute(s) via site #2. Allergies verified, confirmed 5 rights and sedative warning given to the patient. IV patency established. IV site checked: no pain, redness, or swelling. IV flushed thoroughly pre- and post-medication administration. IVP given by RN. --14:43 Tyler Farrell R.N. 10:30 10/11/16. BP: 167/93. HR: 97. RR: 20. O2 saturation: 98% on room air. Pain level now: 08/24. --14:45 Tyler Farrell R.N. 11:30 10/11/16. HR: 101. RR: 19. O2 saturation: 97% on room air. Pain level now: 05/26. --14:46 Tyler Farrell R.N. 14:15 10/11/16. BP: 194/104. HR: 98. RR: 20. O2 saturation: 99% on room air. Pain level now: 08/24. --14:47 Tyler Farrell R.N. 15:25 10/11/2016 Clonidine PO Tablets 0.2 mg given. Allergies verified and confirmed 5 rights. --15:25 Tyler Farrell R.N. 16:00 10/11/2016 Site #2 removed upon discharge. Bandage applied. --16:33 Tyler Farrell R.N. 16:10 10/11/2016 Site #3 started via IV in the right hand with an 24g angiocath, with aseptic technique and good blood return; one attempt. Saline lock flushed with 10 mL saline. --16:19 Tyler Farrell R.N. 16:15 10/11/2016 Dilaudid (HYDROmorphone HCl PF) IVP 1 mg given over 1 minute(s) via site #3. Allergies verified, confirmed 5 rights and sedative warning given to the patient. IV patency established. IV site checked: no pain, redness, or swelling. IV flushed thoroughly pre- and post-medication administration. IVP given by RN. --16:21 Tyler Farrell R.N. 16:27 10/11/2016 Dilaudid (HYDROmorphone HCl PF) IVP 1 mg given over 1 minute(s) via site #3. Allergies verified, confirmed 5 rights and sedative warning given to the patient. IV patency established. IV site checked: no pain, redness, or swelling. IV flushed thoroughly pre- and post-medication administration. IVP given by RN. --16:31 Tyler Farrell R.N. 16:27 10/11/2016 Dilaudid IVP Response: no adverse reaction (minimal improvement). --16:32 Tyler Farrell R.N. 16:48 10/11/2016 Dilaudid IVP Response: no adverse reaction symptoms have improved (pain now 7/10). --16:48 Tyler Farrell R.N. 16:52 10/11/2016 Dilaudid (HYDROmorphone HCl PF) IVP 1 mg given over 1 minute(s) via site #3. Allergies verified, confirmed 5 rights and sedative warning given to the patient. IV patency established. IV site checked: no pain, redness, or swelling. IV flushed thoroughly pre- and post-medication administration. IVP given by RN. --16:57 Tyler Farrell R.N. 14:45 10/11/16. BP: 183/108. BP. ED physician notified. HR: 104. RR: 16. O2 saturation: 98% on room air. Pain level now: 10/24. --16:59 Tyler Farrell R.N. 15:15 10/11/16. BP: 173/115. HR: 102. RR: 16. O2 saturation: 97% on room air. Pain level now: 10/24. --17:00 Tyler Farrell R.N. 15:45 10/11/16. BP: 181/116. HR: 102. RR: 17. O2 saturation: 97% on room air. --17:08 Tyler Farrell R.N. 16:15 10/11/16. BP: 175/113. HR: 106. RR: 17. O2 saturation: 96% on room air. Temp: 98.3 F (oral). Pain level now: 12/24. --17:10 Tyler Farrell R.N. 17:12 10/11/2016 Dilaudid (HYDROmorphone HCl PF) IVP 1 mg given over 1 minute(s) via site #3. Allergies verified, confirmed 5 rights and sedative warning given to the patient. IV patency established. IV site checked: no pain, redness, or swelling. IV flushed thoroughly pre- and post-medication administration. IVP given by RN. --17:18 Tyler Farrell R.N. 17:30 10/11/16. BP: 177/104. HR: 102. RR: 20. O2 saturation: 96% on room air. Pain level now: 11/23. --17:31 Tyler Farrell R.N. 17:00 10/11/16. BP: 169/107. HR: 105. RR: 16. O2 saturation: 96% on room air. Pain level now: 11/23. --17:33 Tyler Farrell R.N. 18:22 10/11/2016 Metoprolol (Metoprolol Tartrate) IVP 2.5 mg given over 1 minute(s) via site #3. Allergies verified and confirmed 5 rights. IV patency established. IV site checked: no pain, redness, or swelling. IV flushed thoroughly pre- and post-medication administration. IVP given by RN. --18:41 Tyler Farrell R.N. 18:37 10/11/2016 Metoprolol (Metoprolol Tartrate) IVP 2.5 mg given over 2 minute(s) via site #3. Allergies verified and confirmed 5 rights. IV patency established. IV site checked: no pain, redness, or swelling. IV flushed thoroughly pre- and post-medication administration. IVP given by RN. --18:43 Tyler Farrell R.N. 18:53 10/11/2016 Metoprolol (Metoprolol Tartrate) IVP 5 mg given over 4 minute(s) via site #3. Allergies verified and confirmed 5 rights. IV patency established. IV site checked: no pain, redness, or swelling. IV flushed thoroughly pre- and post-medication administration. IVP given by RN. --19:00 Tyler Farrell R.N. Care transferred and report received. --19:06 Shayla Clayton R.N. Care transferred and report given (GERALDO Saldana). --19:13 Tyler Farrell R.N. 19:00- Colostomy bag emptied by Saravanan Krishnamurthy RN. --19:37 Shayla Clayton R.N. DISPOSITION / DISCHARGE 20:08 10/11/2016 Site #3 removed upon discharge. Catheter intact. Manual pressure and bandage applied. --20:14 Shayla Clayton R.N. 20:10. Condition at departure: improved and stable. No learning barriers present. Discharge instructions provided and reviewed with the patient. Reviewed medication(s) side effects, precautions, dosing and course information. Prescription(s) given to the patient. Patient verbalized understanding. Written instructions provided in Wolof. The patient was discharged home. He left the Emergency Department via ambulance and on a stretcher. --20:14 Shayla Clayton R.N. 20:10 10/11/16. BP: 181/103. HR: 69. RR: 18. O2 saturation: 97%. Temp: 97.9 F (oral). Montaño-Brown pain scale: 4/10. --20:14 Shayla Clayton R.N. Transported via ambulance by EMS (Transported home.). --20:15 Shayla Clayton R.N. Locked/Released at 10/11/2016 20:15 by Shayla Clayton R.N.
--- NOTE | 2016-10-11 15:47 | ED CLINICAL REPORT ---
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 Arrived- By ambulance. Historian- patient. HISTORY OF PRESENT ILLNESS Chief Complaint: DYSPNEA. This started about 3 days ago and is still present (persistent). It was gradual in onset and has been constant. The dyspnea is described as moderate. The patient has had a cough. He has had moderate amounts of thick, yellow sputum. No fever, sweating episodes, chills, chest discomfort or calf pain. No foot swelling or palpitations. Similar symptoms previously: None. Recent medical care: Not recently seen/assessed. REVIEW OF SYSTEMS No nasal discharge, nausea or vomiting. All systems otherwise negative, except as recorded above. PAST HISTORY Laceration. Pharyngitis. Suprapubic cath. Hypotension. Nausea. Dehydration. Acute Pain. Pulmonary Embolism. Hypertension. Yuen Catheter Replacement. Hypokalemia. Leukocytosis. Wound Dehiscence. Urinary Retention. Nephrolithiasis. Vomiting. UTI - Urinary Tract Infection. Abdominal Pain. Bowel Obstruction. Multiple Sclerosis. ADDITIONAL SURGERIES: Abdominal surgery to close a hole that had burrowed to his indwelling catheter. Appendectomy. Colonoscopy. Colostomy. Shoulder Surgery. Suprapubic cystostomy. Medications: Oxybutynin Chloride Oral 5 mg, 3x a day. TiZANidine HCl Oral 4 mg, every 5 hrs. Aspirin Oral (Tablet 325 mg) 1 tablet. Baclofen Oral 20 mg, every 5 hrs . Dantrolene Sodium Oral 50mg , 3 x daily. Dilaudid Oral (Tablet 8 mg), PRN. FLUoxetine HCl Oral 20 mg, daily. Morphine Sulfate Oral 30 mg ER, 3x a day. Neurontin Oral 800mg, BID. Allergies: Copaxone. Definite Severe(rash) Penicillins. Probable Moderate(rash) Pt/ state amoxicillin is okay; PCN allergy as baby.. Quinolones. SOCIAL HISTORY Smoker - current status unknown. No alcohol use or drug use. ADDITIONAL NOTES The nursing notes have been reviewed. PHYSICAL EXAM Vital Signs: 10/11/2016 08:43 BP: 185/114. HR: 99. RR: 22. O2 saturation: 98%. Temp: 98 F. Pain level now: 6/10. Appearance: Alert. No acute distress. Eyes: Eyes normal inspection. ENT: Pharynx normal. Neck: No jugular venous distention. CVS: Normal heart rate and rhythm. Heart sounds normal. Respiratory: No respiratory distress. Mild bilateral rhonchi present diffusely. Abdomen: Soft and nontender. No organomegaly. (Suprapubic catheter in place - site is clean dry and intact). Skin: Skin warm and dry. Normal skin color. Extremities: No calf tenderness. No lower extremity edema. Neuro: Oriented X 3. LABS, X-RAYS, AND EKG Chest X-ray: No acute disease. Normal lung markings present. No infiltrate. Views: AP. Technique: good. The X-rays were independently viewed by me and interpreted contemporaneously by me. A comparison with prior films reveals that the findings are unchanged. Interpretation time: 09:03. Chest CT: (IMPRESSION: 1. No pulmonary embolus. 2. Bilateral lower lobe atelectasis without infiltrate. 3. Tiny central osteoporotic compression of T10 and chronic compression of T12). The study was interpreted by the radiologist and contemporaneously by me. Laboratory Tests: CBC w Diff: (KIT: 10/11/2016 09:22) ( MsgRcvd 10/11/2016 10:34) Final results Test Result Flag Units (Reference) WHITE BLOOD COUNT 10.9 K/uL (4.5-11.5) RED BLOOD COUNT 6.27 *H M/uL (4.50-5.90) HEMOGLOBIN 16.9 gm/dL (13.5-17.5) HEMATOCRIT 51.5 % (41.0-53.0) MEAN CELL VOLUME 82 fL (80-100) MEAN CORPUSCULAR HGB 27 pg (26-34) MEAN CORPUSCULAR HGB CONC 33 g/dL (31-37) RED CELL DISTRIBUTION WIDTH 18.2 H % (11.6-14.8) PLATELET COUNT 229 K/uL (150-400) NEUTROPHIL % 78.0 H % (50-75) LYMPH % 14.5 L % (25-40) MONO % 6.2 % (3-14) EOSINOPHIL % 0.9 % (0-4) BASOPHIL % 0.4 % (0-2) RBC MORPHOLOGY NORMAL RBCS NORMAL PT with INR: (KIT: 10/11/2016 09:22) ( MsgRcvd 10/11/2016 09:47) Final results Test Result Flag Units (Reference) INR 1.0 (0.8-1.2) Low Intensity Therapy: INR 1.5-2.0 PT range 18.5-23.1Mod.Intensity Therapy: INR 2.0-3.0 PT range 23.1-31.5High Intensity Therapy: INR 2.5-3.5 PT range 27.4-35.5High Intensity Therapy 2: INR 3.0-4.0 PT range 31.5-39.3 APTT 25 SECONDS (24-34) D-DIMER QUANTITATIVE 2.91 H ug/mLFEU (0.27-0.52) The primary value of this quantitative assay relates toits negative predictive value (i.e. exclusion) of pulmonaryembolism/deep vein thrombosis/DIC.Elevated levels of d-dimer may also occur with:, age, cancer, inflammation, liver disease,post-op, infection, hematoma, coronary disease, peripheralarteriopathy, bleeding disorders and thrombolytic treatment.Results should be correlated with other clinical andradiological data.Testing Methodology: Latex Immunoassay CMP: (KIT: 10/11/2016 09:22) ( MsgRcvd 10/11/2016 10:16) Final results Test Result Flag Units (Reference) GLUCOSE 93 mg/dL (70-110) BUN 7 mg/dL (7-18) CREATININE 0.5 L mg/dL (0.6-1.3) Estimated GFR >60 mL/min Estimated GFR- >60 mL/min Note: Persistent reduction over 3 months in eGFR<60 mL/min/1.73 m2 defines CKD. Patients with eGFR values>=60 mL/min/1.73 m2 may also have CKD if evidence ofpersistent proteinuria. Additional information may be foundat www.[email or web address].org. SODIUM 138 mmol/L (136-145) POTASSIUM 4.2 mmol/L (3.5-5.1) CHLORIDE 101 mmol/L (98-107) CARBON DIOXIDE 20 L mmol/L (21-32) CALCIUM 8.1 L mg/dL (8.5-10.1) TOTAL PROTEIN 6.5 g/dL (6.4-8.2) ALBUMIN 3.3 g/dL (3.3-5.0) BILIRUBIN, TOTAL 0.8 mg/dL (0.0-1.0) ALKALINE PHOSPHATASE 84 U/L (46-116) AST (SGOT) 20 U/L (15-37) ALT (SGPT) 16 U/L (12-78) . PROGRESS AND PROCEDURES Central Line Placement: A catheter checklist and standardized protocol was used for insertion. A central line was placed in the left femoral vein. Time-out completed immediately before the procedure. The risks of the procedure, benefits and alternatives were explained. Bloodstream infection prevention education was provided. Consent was obtained. Supine position. Hand hygiene observed, sterile barrier precautions adhered to (cap, mask, gown, gloves and large sterile sheet) and chlorhexidine skin antisepsis used. Local anesthetic infiltrated .18g triple lumen central line placed using Seldinger technique. Good blood return observed. Catheter was secured. Antibiotic ointment applied. Dressing applied. Course of Care: Patient is stable. Patient/family counseled. Old medical records reviewed. Disposition: Discharged. Condition: stable. CLINICAL IMPRESSION Acute bronchitis. Uncontrolled hypertension. INSTRUCTIONS Follow a low salt diet. (Follow up with your doctor closely regarding your elevated blood pressures. Return if any of the untoward symptoms that we discussed develop.). Warnings: Further evaluation is necessary. GENERAL WARNINGS: Return or contact your physician immediately if your condition worsens or changes unexpectedly, if not improving as expected, or if other problems arise. Your Current Medications: CONTINUE TAKING THE FOLLOWING MEDICATIONS: Aspirin Oral : Tablet 325 mg, 1 tablet. Baclofen Oral : 20 mg every 5 hrs. Dantrolene Sodium Oral : 50mg 3 x daily. Dilaudid Oral : Tablet 8 mg, PRN. FLUoxetine HCl Oral : 20 mg daily. Morphine Sulfate Oral : 30 mg ER 3x a day. Neurontin Oral : 800mg BID. Oxybutynin Chloride Oral : 5 mg 3x a day. TiZANidine HCl Oral : 4 mg every 5 hrs. Prescription Medications: Zithromax 250 mg tablets: take 2 orally today, followed by 1 daily for the next 4 days. No refills. Substitution is permissible. Metoprolol 50 mg: take 1 orally every 12 hours. Dispense thirty (30). No refills. Follow-up: Follow up with your doctor DEBORAH PANTOJA in five days. Call for the next available appointment. Understanding of the discharge instructions verbalized by patient and family. (Electronically signed by Raleigh Curran MD 10/14/2016 21:23)
--- NOTE | 2016-10-11 15:47 | ED ORDER SUMMARY ---
..... 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 OrderSheet [facility] VisitID: [id number] [address] [place] [address] 56y, M Registration Date/Time: 10/11/2016 ORDER SHEET Weight: 73 kg (stated) Allergies: Copaxone, Penicillins, Pt/ state amoxicillin is okay; PCN allergy as baby., Quinolones GENERAL ORDERS: Chest 1V Urgent (08:43 10/11/2016 Noelle Grant) (Ack 8:44 SANAMoekarl) (9:12 Hilary) CBC w Diff Urgent (08:10/11/2016 Noelle Grant) (Ack 8:44 SANAMoerner) (9:23 KHoerner) CMP Urgent (08:10/11/2016 Noelle Grant) (Ack 8:44 SANAMoerner) (9:23 KHoerner) D-Dimer Urgent (08:55 10/11/2016 Noelle Grant) (Ack 8:57 KHoerner) (9:23 KHoerner) PT with INR Urgent (09:20 10/11/2016 Daniele GOMEZ) (9:23 KHoerner) PTT Urgent (09:10/11/2016 Daniele GOMEZ) (9:23 KHoerner) CTA Thorax w Cont (No) (See report) Urgent (10:21 10/11/2016 Daniele GOMEZ) (Ack 10:31 SANAMoerner) (14:31 Benita R.N.) MEDICATION ORDERS: Clonidine PO 0.2 mg (NOW) (15:20 10/11/2016 Daniele GOMEZ) (15:25 LUKASimbeck R.N.) IV FLUIDS: IV Saline Lock (08:43 10/11/2016 Noelle Grant) (9:14 Benita R.N.) Dilaudid IV 0.5 mg (NOW) (10:10/11/2016 Daniele GOMEZ) (11:03 Benita R.N.) Zofran IV 4 mg (NOW) (10:10/11/2016 Daniele GOMEZ) (11:02 LUKASimbeck R.N.) IV NS : initial bolus 500 mL (1000 mL/hr), then 125 mL/hr for 4h (NOW); Urgent (10:21 10/11/2016 Daniele GOMEZ) (11:01 Benita R.N.) Dilaudid IV 1 mg (1mg now and 1mg in 10 minutes prn) (16:20 10/11/2016 Trinityeck R.N. verbal order read back to Daniele GOMEZ) (16:21 Triintyeck R.N.) Dilaudid IV 1 mg (NOW) (16:56 10/11/2016 Trinityeck R.N. verbal order read back to Daniele GOMEZ) (16:57 Trinityeck R.N.) Dilaudid IV 1 mg (NOW) (17:17 10/11/2016 Trinityeck R.N. verbal order read back to Daniele GOMEZ) (17:18 Trinityeck R.N.) Metoprolol IV 2.5 mg (HIGH ALERT MEDICATION, NOW) (18:23 10/11/2016 Daniele GOMEZ) (18:41 Trinityeck R.N.) Metoprolol IV 2.5 mg (HIGH ALERT MEDICATION, NOW) (18:42 10/11/2016 Trinityeck R.N. verbal order read back to Daniele GOMEZ) (18:43 Trinityeck R.N.) Metoprolol IV 5 mg (HIGH ALERT MEDICATION, NOW) (18:59 10/11/2016 LUKASimbeck R.N. verbal order read back to Daniele GOMEZ) (19:00 LUKASimbeck R.N.) ORDER SHEET NOTES: [Electronically signed by Shayla Clayton R.N. (20:15 10/11/2016)] [Electronically signed by Raleigh Curran MD (21:23 10/14/2016)] [Electronically locked/signed by Shayla Clayton R.N. (20:15 10/11/2016)]
--- NOTE | 2016-10-14 21:23 | ED MAR SUMMARY ---
..... Medication Administration Record Formerly [facility] [address] 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 Medication Administered: IV NS (SALINE), Dose: IV Fluids over 4 hour(s), Rate: 125 mL/hr, Bolus: 500 mL over 30 minute(s), Dispensed: 1000 mL bag, Site: #1 left wrist. Medication Ordered: IV NS : initial bolus 500 mL (1000 mL/hr), then 125 mL/hr for 4h (NOW); Urgent. Given 10:35 10/11/2016 Tyler Farrell R.N. Medication Administered: ZOFRAN [IVP] (ONDANSETRON HCL), Dose: 4 mg IVP over 1 minute(s), Site: #1 left wrist. Medication Ordered: Zofran IV 4 mg (NOW). Given 10:36 10/11/2016 Tyler Farrell R.N. Medication Administered: DILAUDID [IVP] (HYDROMORPHONE HCL PF), Dose: 0.5 mg IVP over 1 minute(s), Site: #1 left wrist. Medication Ordered: Dilaudid IV 0.5 mg (NOW). Given 14:40 10/11/2016 Tyler Farrell R.N. Medication Administered: DILAUDID [IVP] (HYDROMORPHONE HCL PF), Dose: 0.5 mg IVP over 1 minute(s), Site: #2 left fem central line(see procedure note). Medication Ordered: Dilaudid IV 0.5 mg (NOW). Given 15:25 10/11/2016 Tyler Farrell R.N. Medication Administered: CLONIDINE [PO], Dose: 0.2 mg Tablets PO. Medication Ordered: Clonidine PO 0.2 mg (NOW). Given 16:15 10/11/2016 Tyler Farrell R.N. Medication Administered: DILAUDID [IVP] (HYDROMORPHONE HCL PF), Dose: 1 mg IVP over 1 minute(s), Site: #3 right hand. Medication Ordered: Dilaudid IV 1 mg (1mg now and 1mg in 10 minutes prn). Given 16:27 10/11/2016 Tyler Farrell R.N. Medication Administered: DILAUDID [IVP] (HYDROMORPHONE HCL PF), Dose: 1 mg IVP over 1 minute(s), Site: #3 right hand. Medication Ordered: Dilaudid IV 1 mg (1mg now and 1mg in 10 minutes prn). Given 16:52 10/11/2016 Tyler Farrell R.N. Medication Administered: DILAUDID [IVP] (HYDROMORPHONE HCL PF), Dose: 1 mg IVP over 1 minute(s), Site: #3 right hand. Medication Ordered: Dilaudid IV 1 mg (NOW). Given 17:12 10/11/2016 Tyler Farrell R.N. Medication Administered: DILAUDID [IVP] (HYDROMORPHONE HCL PF), Dose: 1 mg IVP over 1 minute(s), Site: #3 right hand. Medication Ordered: Dilaudid IV 1 mg (NOW). Given 18:22 10/11/2016 Tyler Farrell R.N. Medication Administered: METOPROLOL [IVP] (METOPROLOL TARTRATE), Dose: 2.5 mg IVP over 1 minute(s), Site: #3 right hand. Medication Ordered: Metoprolol IV 2.5 mg (HIGH ALERT MEDICATION, NOW). Given 18:37 10/11/2016 Tyler Farrell R.N. Medication Administered: METOPROLOL [IVP] (METOPROLOL TARTRATE), Dose: 2.5 mg IVP over 2 minute(s), Site: #3 right hand. Medication Ordered: Metoprolol IV 2.5 mg (HIGH ALERT MEDICATION, NOW). Given 18:53 10/11/2016 Tyler Farrell R.N. Medication Administered: METOPROLOL [IVP] (METOPROLOL TARTRATE), Dose: 5 mg IVP over 4 minute(s), Site: #3 right hand. Medication Ordered: Metoprolol IV 5 mg (HIGH ALERT MEDICATION, NOW).
--- NOTE | 2016-10-14 21:23 | ED MED RECONCILIATION SUMMARY ---
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 BMI: 23.1 ALLERGIES: Copaxone, Penicillins, Pt/ state amoxicillin is okay; PCN allergy as baby., Quinolones The patient's Home Medications are listed below: CONTINUE TAKING THE FOLLOWING MEDICATIONS: Aspirin Oral (325 mg) 1 tablet Baclofen Oral 20 mg, every 5 hrs Dantrolene Sodium Oral 50mg , 3 x daily Dilaudid Oral (8 mg), PRN FLUoxetine HCl Oral 20 mg, daily Morphine Sulfate Oral 30 mg ER, 3x a day Neurontin Oral 800mg, BID Oxybutynin Chloride Oral 5 mg, 3x a day TiZANidine HCl Oral 4 mg, every 5 hrs The source(s) of the original Home Medication information: Not obtained. The following Medications were given to the patient in the Emergency Department: IV NS IV Fluids bolus 500 mL over 30 minute(s), then 125 mL/hr, administered: 10/11/2016 10:00:00 AM Zofran [IVP] IVP 4 mg, administered: 10/11/2016 10:35:00 AM Dilaudid [IVP] IVP 0.5 mg, administered: 10/11/2016 10:36:00 AM Dilaudid [IVP] IVP 0.5 mg, administered: 10/11/2016 2:40:00 PM Clonidine [PO] PO 0.2 mg, administered: 10/11/2016 3:25:00 PM Dilaudid [IVP] IVP 1 mg, administered: 10/11/2016 4:15:00 PM Dilaudid [IVP] IVP 1 mg, administered: 10/11/2016 4:27:00 PM Dilaudid [IVP] IVP 1 mg, administered: 10/11/2016 4:52:00 PM Dilaudid [IVP] IVP 1 mg, administered: 10/11/2016 5:12:00 PM Metoprolol [IVP] IVP 2.5 mg, administered: 10/11/2016 6:22:00 PM Metoprolol [IVP] IVP 2.5 mg, administered: 10/11/2016 6:37:00 PM Metoprolol [IVP] IVP 5 mg, administered: 10/11/2016 6:53:00 PM The following Medications were prescribed to the patient: Zithromax 250 mg tablets: take 2 orally today, followed by 1 daily for the next 4 days. No refills. Substitution is permissible. -- Raleigh Curran MD Metoprolol 50 mg: take 1 orally every 12 hours. Dispense thirty (30). No refills. -- Raleigh Curran MD
--- NOTE | 2016-10-14 21:23 | ED DISCHARGE INSTRUCTIONS ---
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 Uncontrolled hypertension. INSTRUCTIONS Follow a low salt diet. (Follow up with your doctor closely regarding your elevated blood pressures. Return if any of the untoward symptoms that we discussed develop.). Warnings: Further evaluation is necessary. GENERAL WARNINGS: Return or contact your physician immediately if your condition worsens or changes unexpectedly, if not improving as expected, or if other problems arise. Your Current Medications: CONTINUE TAKING THE FOLLOWING MEDICATIONS: Aspirin Oral : Tablet 325 mg, 1 tablet. Baclofen Oral : 20 mg every 5 hrs. Dantrolene Sodium Oral : 50mg 3 x daily. Dilaudid Oral : Tablet 8 mg, PRN. FLUoxetine HCl Oral : 20 mg daily. Morphine Sulfate Oral : 30 mg ER 3x a day. Neurontin Oral : 800mg BID. Oxybutynin Chloride Oral : 5 mg 3x a day. TiZANidine HCl Oral : 4 mg every 5 hrs. Prescription Medications: Zithromax 250 mg tablets: take 2 orally today, followed by 1 daily for the next 4 days. No refills. Substitution is permissible. Metoprolol 50 mg: take 1 orally every 12 hours. Dispense thirty (30). No refills. Follow-up: Follow up with your doctor DEBORAH PANTOJA in five days. Call for the next available appointment. Understanding of the discharge instructions verbalized by patient and family. ADDITIONAL INFORMATION Bronchitis (Adult: Abx Tx) BRONCHITIS is an infection of the air passages (bronchial tubes). It often occurs during the common cold. Symptoms include cough with mucus (phlegm) and low-grade fever. Bronchitis usually lasts 7-14 days. Mild cases can be treated with simple home remedies. More severe infection is treated with an antibiotic. Home Care: If symptoms are severe, rest at home for the first 2-3 days. When you resume activity, don't let yourself get too tired. Do not smoke. Avoid being exposed to the smoke of others. You may use acetaminophen (Tylenol) or ibuprofen (Motrin, Advil) to control fever or pain, unless another medicine was prescribed for this. [NOTE: If you have chronic liver or kidney disease or ever had a stomach ulcer or GI bleeding, talk with your doctor before using these medicines.] Your appetite may be poor, so a light diet is fine. Avoid dehydration by drinking 6-8 glasses of fluids per day (water, soft, drinks, juices, tea, soup, etc.). Extra fluids will help loosen secretions in the lungs. Eoon-mra-gjxwtik cough medicines that containdextromethorphan(such as Robitussin DM) and decongestants (Actifed or Sudafed) may help relieve cough and congestion. [NOTE: Do not use decongestants if you have high blood pressure.] Finish all antibiotic medicine, even if you are feeling better after only a few days. Follow Up with your doctor or as directed if you dont start to feel better after three days. [NOTE: If you are age 65 or older, or if you have chronic asthma or COPD, we recommend a PNEUMOCOCCAL VACCINATION every five years and a yearly INFLUENZAVACCINATION (FLU-SHOT) every . Ask your doctor about this. If you had an X-ray, a radiologist will review it. You will be notified of any new findings that may affect your care.] Get Prompt Medical Attention if any of the following occur: Fever over 100.4F (38.0C) for more than three days Trouble breathing, wheezing or pain with breathing Coughing up blood or increased amounts of colored sputum Weakness, drowsiness, headache, facial pain, ear pain or a stiff neck Hypertension, Out Of Control (Established) Your blood pressure was unusually high today. This can occur as a result of missing doses of your blood pressure medicine. Some asthma inhalers, decongestants, diet pills, and street drugs such as cocaine and amphetamine can worsen hypertension. An increase in body weight, increase in salt intake, smoking, and caffeine are other causes. Emotional upset or acute pain can cause a sudden rapid rise in blood pressure which may return to normal after a period of rest. A normal blood pressure is less than 140/90. The first (top) number is the systolic pressure. The second (bottom) number is the diastolic pressure. Hypertension exists when either the top number is 140 or higher, OR the bottom number is 90 or higher on repeated measurements. Home Care: All patients with high blood pressure should do the following to lower their pressure. If you are on blood pressure medicines, then these methods may reduce or eliminate your need for medicines in the future. Begin a weight-loss program if you are overweight. Reduce your salt intake. Avoid high-salt foods (olives, pickles, smoked meats, salted potato chips, etc.). Do not add salt to your food at the table. Use only small amounts of salt when cooking. Begin an exercise program. Discuss with your doctor what type of exercise program would be best for you. It doesnt have to be difficult. Even brisk walking for 20 minutes3 times a week is a good form of exercise. Avoid medicines which contain heart stimulants. This includes many cold and sinus decongestant pills and sprays as well as diet pills. Check the warnings about hypertension on the label. Stimulants such as amphetamine or cocaine could be lethal for someone with hypertension. Never take these. Limit your caffeine intake or switch to decaf. Stop smoking. If you are a long-time smoker, this can be hard. Enroll in a stop-smoking program to improve your chance of success. Talk to your physician about ways to improve your chance of success. Learning how to handle stress better is an important part of any program to lower blood pressure. Learn about relaxation methods such as meditation, yoga, or biofeedback. If medicines were prescribed, take them exactly as directed. Missing doses may cause your blood pressure to get out of control. Consider buying an automatic blood pressure machine (available at many pharmacies). Use this to monitor your blood pressure and report to your doctor. Follow Up: Regular visits to your own doctor for blood pressure checks and medicine adjustment is an important part of your care. Make a follow-up appointment as directed by our staff. Get Prompt Medical Attention if any of the following occur: Chest, arm, shoulder, neck, or upper back pain Shortness of breath Severe headache Throbbing or rushing sound in the ears Nosebleed Extreme drowsiness, confusion, or fainting Dizziness or vertigo (dizziness with spinning sensation) Weakness of an arm or leg or one side of the face Difficulty with speech or vision Low-Salt Diet (2 Grams/Day) This diet eliminates foods that are high in salt and restricts the amount of salt that you cook with. It is most often used for patients with high blood pressure, edema (fluid retention), kidney, liver, and heart disease. Table salt contains the mineral sodium. The body needs sodium to work normally. But too much sodium can make your health problems worse. Your healthcare provider is recommending a low-salt (also called low-sodium) diet for you. Your total daily allowance of salt (sodium) is 2 grams. This equals 2,000 milligrams (mg). It is less than 1 teaspoon of table salt. This means you can have only about 700 mg of sodium at each meal. When you cook, limit the salt you use. And if you can avoid using salt, even better. Do not add salt at the table. So, throw away the saltshaker! When shopping, read the package labels. Salt is often called sodium on the label. Choose foods that are Salt-Free, Low Salt, or Very Low Salt. Note that foods with Reduced Salt may notlower your salt intake enough. Beverages OK: Tea, coffee, carbonated beverages, juices AVOID: Flavored international coffees, electrolyte replacement drinks, sports beverages Bread & Cereals OK: All regular bread, rolls, cereals, cakes; low-salt crackers, matzoh crackers AVOID: Salted crackers, pretzels, popcorn; mexican toast, pancakes, muffins Fruits & Desserts OK: Ice cream, frozen yogurt, juice bars, gelatin (Jell-O), cookies and pies, sugar, honey, jelly, hard candy AVOID: Most pies, cakes and cookies prepared or processed with salt, instant pudding Meats OK: All fresh meat, fish, poultry, low-salt tuna AVOID: Smoked, pickled, brine-cured, or salted meats or fish. Thisincludes wen, chipped beef, corned beef, hot dogs, luncheon meats, ham, kosher meats, salt pork, sausage, canned tuna, salted codfish, smokedsalmon, green, sardines, or anchovies. Dairy OK: Milk, chocolate milk, hot chocolate mix; eggs, Low Salt cheeses, yogurt, egg substitute AVOID: Processed cheese, cheese spreads, Roquefort, Camembert, and cottage cheese, buttermilk, instant breakfast drink Beans, Potatoes & Pasta OK: Dry beans, split peas, lentils, potatoes, rice, macaroni, noodles, spaghetti without added salt AVOID: Potato chips, tortilla chips, and similar products Soups OK: Low-salt soups and broths made with allowed foods AVOID: Bouillon cubes, soups with smoked or salted meats, regular soup and broth Vegetables OK: Most are okay; low-salt tomato and vegetable juices AVOID: Sauerkraut and other brine-soaked vegetables, pickles and other pickled vegetables, tomato juice, olives Seasoning & Spices OK: Most seasonings are okay. Good substitutes for salt include: fresh herb blends, Tabasco, lemon, garlic, booth, vinegar, dry mustard, parsley, cilantro, horseradish, tomato paste, regular margarine, mayonnaise, butter, cream cheese, vegetable oil, cream, low-salt salad dressing and gravy AVOID: Regular ketchup, relishes, pickles, soy sauce, teriyaki sauce, Worcestershire sauce, BBQ sauce, tartar sauce, meat tenderizer, chili sauce, regular gravy, regular salad dressing Azithromycin Oral tablet What is this medicine? AZITHROMYCIN (az ith antione MYE sin) is a macrolide antibiotic. It is used to treat or prevent certain kinds of bacterial infections. It will not work for colds, flu, or other viral infections. How should I use this medicine? Take this medicine by mouth with a full glass of water. Follow the directions on the prescription label. The tablets can be taken with food or on an empty stomach. If the medicine upsets your stomach, take it with food. Take your medicine at regular intervals. Do not take your medicine more often than directed. Take all of your medicine as directed even if you think your are better. Do not skip doses or stop your medicine early. Talk to your char filter tank tender head regarding the use of this medicine in children. Special care may be needed. What side effects may I notice from receiving this medicine? Side effects that you should report to your doctor or health progressive care unit registered nurse as soon as possible: allergic reactions like skin rash, itching or hives, swelling of the face, lips, or tongue confusion, nightmares or hallucinations dark urine difficulty breathing hearing loss irregular heartbeat or chest pain pain or difficulty passing urine redness, blistering, peeling or loosening of the skin, including inside the mouth white patches or sores in the mouth yellowing of the eyes or skin Side effects that usually do not require medical attention (report to your doctor or health progressive care unit registered nurse if they continue or are bothersome): diarrhea dizziness, drowsiness headache stomach upset or vomiting tooth discoloration vaginal irritation What may interact with this medicine? Do not take this medicine with any of the following medications: lincomycin This medicine may also interact with the following medications: amiodarone antacids cyclosporine digoxin magnesium nelfinavir phenytoin warfarin What if I miss a dose? If you miss a dose, take it as soon as you can. If it is almost time for your next dose, take only that dose. Do not take double or extra doses. Where should I keep my medicine? Keep out of the reach of children. Store at room temperature between 15 and 30 degrees C (59 and 86 degrees F). Throw away any unused medicine after the expiration date. What should I tell my health care provider before I take this medicine? They need to know if you have any of these conditions: kidney disease liver disease irregular heartbeat or heart disease an unusual or allergic reaction to azithromycin, erythromycin, other macrolide antibiotics, foods, dyes, or preservatives or trying to get breast-feeding What should I watch for while using this medicine? Tell your doctor or health progressive care unit registered nurse if your symptoms do not improve. Do not treat diarrhea with over the counter products. Contact your doctor if you have diarrhea that lasts more than 2 days or if it is severe and watery. This medicine can make you more sensitive to the sun. Keep out of the sun. If you cannot avoid being in the sun, wear protective clothing and use sunscreen. Do not use sun lamps or tanning beds/booths. Metoprolol Tartrate Oral tablet What is this medicine? METOPROLOL (me TOE proe lole) is a beta-kaya. Beta-blockers reduce the workload on the heart and help it to beat more regularly. This medicine is used to treat high blood pressure and to prevent chest pain. It is also used to after a heart attack and to prevent an additional heart attack from occurring. How should I use this medicine? Take this medicine by mouth with a drink of water. Follow the directions on the prescription label. Take this medicine immediately after meals. Take your doses at regular intervals. Do not take more medicine than directed. Do not stop taking this medicine suddenly. This could lead to serious heart-related effects. Talk to your char filter tank tender head regarding the use of this medicine in children. Special care may be needed. What side effects may I notice from receiving this medicine? Side effects that you should report to your doctor or health progressive care unit registered nurse as soon as possible: allergic reactions like skin rash, itching or hives cold or numb hands or feet depression difficulty breathing faint fever with sore throat irregular heartbeat, chest pain rapid weight gain swollen legs or ankles Side effects that usually do not require medical attention (report to your doctor or health progressive care unit registered nurse if they continue or are bothersome): anxiety or nervousness change in sex drive or performance dry skin headache nightmares or trouble sleeping short term memory loss stomach upset or diarrhea unusually tired What may interact with this medicine? Do not take this medicine with any of the following medications: sotalol This medicine may also interact with the following medications: clonidine digoxin dobutamine epinephrine isoproterenol medicine to control heart rhythm like quinidine, propafenone medicine for depression like monoamine oxidase (MAO) inhibitors, fluoxetine, and paroxetine medicine for high blood pressure like calcium channel blockers reserpine What if I miss a dose? If you miss a dose, take it as soon as you can. If it is almost time for your next dose, take only that dose. Do not take double or extra doses. Where should I keep my medicine? Keep out of the reach of children. Store at room temperature between 15 and 30 degrees C (59 and 86 degrees F). Throw away any unused medicine after the expiration date. What should I tell my health care provider before I take this medicine? They need to know if you have any of these conditions: diabetes heart or vessel disease like slow heart rate, worsening heart failure, heart block, sick sinus syndrome or Raynaud's disease kidney disease liver disease lung or breathing disease, like asthma or emphysema pheochromocytoma thyroid disease an unusual or allergic reaction to metoprolol, other beta-blockers, medicines, foods, dyes, or preservatives or trying to get breast-feeding What should I watch for while using this medicine? Visit your doctor or health progressive care unit registered nurse for regular check ups. Contact your doctor right away if your symptoms worsen. Check your blood pressure and pulse rate regularly. Ask your health progressive care unit registered nurse what your blood pressure and pulse rate should be, and when you should contact them. You may get drowsy or dizzy. Do not drive, use machinery, or do anything that needs mental alertness until you know how this medicine affects you. Do not sit or stand up quickly, especially if you are an older patient. This reduces the risk of dizzy or fainting spells. Contact your doctor if these symptoms continue. Alcohol may interfere with the effect of this medicine. Avoid alcoholic drinks. You have been given the following additional information: Bronchitis, Antiobiotic Treatment (Adult) Hypertension, Established, Out Of Control Diet, Low Salt (2Gm) Azithromycin Oral tablet Metoprolol Tartrate Oral tablet (Electronically signed by Raleigh Curran MD 10/14/2016 21:23)
--- NOTE | 2016-10-14 21:23 | ED MED RECONCILIATION SUMMARY ---
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 BMI: 23.1 ALLERGIES: Copaxone, Penicillins, Pt/ state amoxicillin is okay; PCN allergy as baby., Quinolones The patient's Home Medications are listed below: CONTINUE TAKING THE FOLLOWING MEDICATIONS: Aspirin Oral (325 mg) 1 tablet Baclofen Oral 20 mg, every 5 hrs Dantrolene Sodium Oral 50mg , 3 x daily Dilaudid Oral (8 mg), PRN FLUoxetine HCl Oral 20 mg, daily Morphine Sulfate Oral 30 mg ER, 3x a day Neurontin Oral 800mg, BID Oxybutynin Chloride Oral 5 mg, 3x a day TiZANidine HCl Oral 4 mg, every 5 hrs The source(s) of the original Home Medication information: Not obtained. The following Medications were given to the patient in the Emergency Department: IV NS IV Fluids bolus 500 mL over 30 minute(s), then 125 mL/hr, administered: 10/11/2016 10:00:00 AM Zofran [IVP] IVP 4 mg, administered: 10/11/2016 10:35:00 AM Dilaudid [IVP] IVP 0.5 mg, administered: 10/11/2016 10:36:00 AM Dilaudid [IVP] IVP 0.5 mg, administered: 10/11/2016 2:40:00 PM Clonidine [PO] PO 0.2 mg, administered: 10/11/2016 3:25:00 PM Dilaudid [IVP] IVP 1 mg, administered: 10/11/2016 4:15:00 PM Dilaudid [IVP] IVP 1 mg, administered: 10/11/2016 4:27:00 PM Dilaudid [IVP] IVP 1 mg, administered: 10/11/2016 4:52:00 PM Dilaudid [IVP] IVP 1 mg, administered: 10/11/2016 5:12:00 PM Metoprolol [IVP] IVP 2.5 mg, administered: 10/11/2016 6:22:00 PM Metoprolol [IVP] IVP 2.5 mg, administered: 10/11/2016 6:37:00 PM Metoprolol [IVP] IVP 5 mg, administered: 10/11/2016 6:53:00 PM The following Medications were prescribed to the patient: Zithromax 250 mg tablets: take 2 orally today, followed by 1 daily for the next 4 days. No refills. Substitution is permissible. -- Raleigh Curran MD Metoprolol 50 mg: take 1 orally every 12 hours. Dispense thirty (30). No refills. -- Raleigh Curran MD
--- NOTE | 2016-10-14 21:23 | ED MAR SUMMARY ---
..... Medication Administration Record [facility] [address] [place] [address] 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 Visit ID: [id number] 56y, M Weight: 73.0 kg Height/Length: 70 in BMI: 23.1 ALLERGIES: Copaxone, Penicillins, Pt/ state amoxicillin is okay; PCN allergy as baby., Quinolones Start 10:00 10/11/2016 Tyler Farrell R.N. Medication Administered: IV NS (SALINE), Dose: IV Fluids over 4 hour(s), Rate: 125 mL/hr, Bolus: 500 mL over 30 minute(s), Dispensed: 1000 mL bag, Site: #1 left wrist. Medication Ordered: IV NS : initial bolus 500 mL (1000 mL/hr), then 125 mL/hr for 4h (NOW); Urgent. Given 10:35 10/11/2016 Tyler Farrell R.N. Medication Administered: ZOFRAN [IVP] (ONDANSETRON HCL), Dose: 4 mg IVP over 1 minute(s), Site: #1 left wrist. Medication Ordered: Zofran IV 4 mg (NOW). Given 10:36 10/11/2016 Tyler Farrell R.N. Medication Administered: DILAUDID [IVP] (HYDROMORPHONE HCL PF), Dose: 0.5 mg IVP over 1 minute(s), Site: #1 left wrist. Medication Ordered: Dilaudid IV 0.5 mg (NOW). Given 14:40 10/11/2016 Tyler Farrell R.N. Medication Administered: DILAUDID [IVP] (HYDROMORPHONE HCL PF), Dose: 0.5 mg IVP over 1 minute(s), Site: #2 left fem central line(see procedure note). Medication Ordered: Dilaudid IV 0.5 mg (NOW). Given 15:25 10/11/2016 Tyler Farrell R.N. Medication Administered: CLONIDINE [PO], Dose: 0.2 mg Tablets PO. Medication Ordered: Clonidine PO 0.2 mg (NOW). Given 16:15 10/11/2016 Tyler Farrell R.N. Medication Administered: DILAUDID [IVP] (HYDROMORPHONE HCL PF), Dose: 1 mg IVP over 1 minute(s), Site: #3 right hand. Medication Ordered: Dilaudid IV 1 mg (1mg now and 1mg in 10 minutes prn). Given 16:27 10/11/2016 Tyler Farrell R.N. Medication Administered: DILAUDID [IVP] (HYDROMORPHONE HCL PF), Dose: 1 mg IVP over 1 minute(s), Site: #3 right hand. Medication Ordered: Dilaudid IV 1 mg (1mg now and 1mg in 10 minutes prn). Given 16:52 10/11/2016 Tyler Farrell R.N. Medication Administered: DILAUDID [IVP] (HYDROMORPHONE HCL PF), Dose: 1 mg IVP over 1 minute(s), Site: #3 right hand. Medication Ordered: Dilaudid IV 1 mg (NOW). Given 17:12 10/11/2016 Tyler Farrell R.N. Medication Administered: DILAUDID [IVP] (HYDROMORPHONE HCL PF), Dose: 1 mg IVP over 1 minute(s), Site: #3 right hand. Medication Ordered: Dilaudid IV 1 mg (NOW). Given 18:22 10/11/2016 Tyler Farrell R.N. Medication Administered: METOPROLOL [IVP] (METOPROLOL TARTRATE), Dose: 2.5 mg IVP over 1 minute(s), Site: #3 right hand. Medication Ordered: Metoprolol IV 2.5 mg (HIGH ALERT MEDICATION, NOW). Given 18:37 10/11/2016 Tyler Farrell R.N. Medication Administered: METOPROLOL [IVP] (METOPROLOL TARTRATE), Dose: 2.5 mg IVP over 2 minute(s), Site: #3 right hand. Medication Ordered: Metoprolol IV 2.5 mg (HIGH ALERT MEDICATION, NOW). Given 18:53 10/11/2016 Tyler Farrell R.N. Medication Administered: METOPROLOL [IVP] (METOPROLOL TARTRATE), Dose: 5 mg IVP over 4 minute(s), Site: #3 right hand. Medication Ordered: Metoprolol IV 5 mg (HIGH ALERT MEDICATION, NOW).
== END 2016-10-11 20:10 | disposition home or self-care (01) ==
LOC: ED SRH 08:23
DX: J20.9 Acute bronchitis, unspecified (principal); I10 Essential (primary) hypertension; G35 Multiple sclerosis; Z86.711 Personal history of pulmonary embolism; Z88.0 Allergy status to penicillin; Z88.8 Allergy status to other drugs, medicaments and biological substances; Z88.1 Allergy status to other antibiotic agents; Z79.899 Other long term (current) drug therapy; Z72.0 Tobacco use
CPT/HCPCS: 81526; 90074; 90100; 91556; 94001; 94060; 95059

== ENCOUNTER 2016-11-02 09:52 | Emergency (ER) | payer OTHER ==
--- NOTE | 2016-11-02 15:15 | ED CLINICAL REPORT ---
Clinical Report - Physicians/Mid Levels [facility] [address] [place] [address] 11/02/2016 9:53 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 Time Seen: 10:04; initial patient contact. Arrived- By ambulance. Historian- patient. HISTORY OF PRESENT ILLNESS Chief Complaint: COUGH. This started about 2 weeks ago and is still present. The illness is described as mild. The patient has had sputum production, a cough, nasal congestion, sinus pressure and sinus drainage. He has had a nasal discharge. No difficulty breathing, chest discomfort, fever, muscle aches or chills. Additional history - No known contact with a sick individual. Recent medical care: The patient was seen recently at this facility in the emergency department. ( ~ 3 weeks ago, pos D dimer, CTA pos only for bibasilar atelectasis. Polycythemic at that point also.). REVIEW OF SYSTEMS No headache, eye discomfort, pedal edema or calf pain. All systems otherwise negative, except as recorded above. PAST HISTORY Bronchitis. Laceration. Pharyngitis. Suprapubic cath. Hypotension. Nausea. Dehydration. Acute Pain. Pulmonary Embolism. Hypertension. Yuen Catheter Replacement. Hypokalemia. Leukocytosis. Wound Dehiscence. Urinary Retention. Nephrolithiasis. Vomiting. Immunizations. UTI - Urinary Tract Infection. Abdominal Pain. Bowel Obstruction. Multiple Sclerosis. ADDITIONAL SURGERIES: Abdominal surgery to close a hole that had burrowed to his indwelling catheter. Appendectomy. Colonoscopy. Colostomy. Shoulder Surgery. Suprapubic cystostomy. SOCIAL HISTORY Never smoker. No alcohol use or drug use. PHYSICAL EXAM Vital Signs: 11/02/2016 09:56 BP: 150/102. HR: 116. RR: 20. O2 saturation: 98%. Temp: 98.2 F. Pain level now: 7/10. Have been reviewed. Hypertensive. Tachycardic. Respiratory rate normal. Temperature normal. Oxygen saturation normal. Appearance: Alert. No acute distress. Head: Tenderness present to percussion/palpation of the sinuses. Eyes: Eyes normal inspection. ENT: Dry mucous membranes present. Neck: Normal inspection. Neck supple. No JVD. CVS: Normal heart rate and rhythm. Heart sounds normal. Respiratory: No respiratory distress. Breath sounds normal. Skin: Skin warm and dry. Normal skin color. Extremities: No lower extremity edema. Neuro: Oriented X 3. LABS, X-RAYS, AND EKG Laboratory Tests: UA-Culture if indicated: (KIT: 11/02/2016 14:30) ( [facility] 11/02/2016 14:56) Final results Test Result Flag Units (Reference) URINE COLOR YELLOW URINE APPEARANCE CLOUDY URINE GLUCOSE NEGATIVE (NEGATIVE) URINE BILIRUBIN NEGATIVE (NEGATIVE) URINE KETONE NEGATIVE (NEGATIVE) URINE SPECIFIC GRAVITY >= 1.030 (1.010-1.030) URINE PH 5.5 (5.0-8.0) URINE PROTEIN NEGATIVE (NEGATIVE) URINE UROBILINOGEN 0.2 EU/dL (0.2-1.0) URINE NITRITE POSITIVE (NEGATIVE) URINE BLOOD 3+ (NEGATIVE) URINE LEUK ESTERASE POSITIVE (NEGATIVE) URINE RBC 5-10 rbc/hpf (0-1) URINE WBC >100 wbc/hpf (0-1) URINE EPITHELIAL CELLS 0-1 EPI/hpf (0-5) URINE BACTERIA MANY (4+) (NONE SEEN) URINE COMMENT CULTURE INDICATED 1-3 YEAST/LPFURINE CULTURES ARE SET-UP BASED ON THE FOLLOWING CRITERIA:POSITIVE NITRITEPOSITIVE LEUKOCYTE ESTERASEGREATER THAN 10 WHITE BLOOD CELLSMODERATE (2+) OR GREATER BACTERIA CBC w Diff: (KIT: 11/02/2016 10:50) ( [facility] 11/02/2016 11:05) Final results Test Result Flag Units (Reference) WHITE BLOOD COUNT 13.7 H K/uL (4.5-11.5) RED BLOOD COUNT 6.79 *H M/uL (4.50-5.90) HEMOGLOBIN 18.9 H gm/dL (13.5-17.5) HEMATOCRIT 57.5 H % (41.0-53.0) MEAN CELL VOLUME 85 fL (80-100) MEAN CORPUSCULAR HGB 28 pg (26-34) MEAN CORPUSCULAR HGB CONC 33 g/dL (31-37) RED CELL DISTRIBUTION WIDTH 17.4 H % (11.6-14.8) PLATELET COUNT 357 K/uL (150-400) LYMPH % 11.4 L % (25-40) MONO % 4.6 % (3-14) GRANULOCYTE % 84.0 CMP: (KIT: 11/02/2016 10:50) ( MsgRcvd 11/02/2016 11:12) Final results Test Result Flag Units (Reference) GLUCOSE 135 H mg/dL (70-110) BUN 18 mg/dL (7-18) CREATININE 0.6 mg/dL (0.6-1.3) Estimated GFR >60 mL/min Estimated GFR- >60 mL/min Note: Persistent reduction over 3 months in eGFR<60 mL/min/1.73 m2 defines CKD. Patients with eGFR values>=60 mL/min/1.73 m2 may also have CKD if evidence ofpersistent proteinuria. Additional information may be foundat www.kidney.org. SODIUM 141 mmol/L (136-145) POTASSIUM 4.2 mmol/L (3.5-5.1) CHLORIDE 103 mmol/L (98-107) CARBON DIOXIDE 27 mmol/L (21-32) CALCIUM 8.9 mg/dL (8.5-10.1) TOTAL PROTEIN 7.5 g/dL (6.4-8.2) ALBUMIN 3.6 g/dL (3.3-5.0) BILIRUBIN, TOTAL 0.6 mg/dL (0.0-1.0) ALKALINE PHOSPHATASE 190 H U/L (46-116) AST (SGOT) 27 U/L (15-37) ALT (SGPT) 27 U/L (12-78) . PROGRESS AND PROCEDURES Disposition: Discharged home in good and improved condition. Condition: good. CLINICAL IMPRESSION Acute urinary tract infection with cystitis associated with indwelling catheter. Acute and recurrent frontal sinusitis INSTRUCTIONS Your Current Medications: CONTINUE TAKING THE FOLLOWING MEDICATIONS: Aspirin Oral : Tablet 325 mg, 1 tablet. Baclofen Oral : 20 mg every 5 hrs. Dantrolene Sodium Oral : 50mg 3 x daily. Dilaudid Oral : Tablet 8 mg, PRN. FLUoxetine HCl Oral : 20 mg daily. Morphine Sulfate Oral : 30 mg ER 3x a day. Neurontin Oral : 800mg BID. Oxybutynin Chloride Oral : 5 mg 3x a day. TiZANidine HCl Oral : 4 mg every 5 hrs. Prescription Medications: Cefixime 400 mg: take 1 tab orally every day for 7 days. No refill. Flonase nasal spray: 2 sprays to each nostril daily. Dispense one (1) unit. No refills. Substitution is permissible Follow-up: Screening today revealed the patient's blood pressure to be in the pre-hypertensive range. The patient should follow up with a primary care provider for blood pressure management. (Electronically signed by Franky Chaves Dr. 11/02/2016 22:21)
--- NOTE | 2016-11-02 15:15 | ED ORDER SUMMARY ---
..... 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 OrderSheet [facility] VisitID: [id number] [place] [address] 56y, M Registration Date/Time: 11/02/2016 ORDER SHEET Weight: 73.4 kg (stated) Allergies: Copaxone, Penicillins, Pt/ state amoxicillin is okay; PCN allergy as baby., Quinolones GENERAL ORDERS: CBC w Diff Urgent (10:26 11/02/2016 Noelle Grant) (Ack 10:40 LNations ER Tech1) (10:48 JBoardley R.N.) CMP Urgent (10:26 11/02/2016 Noelle Grant) (Ack 10:40 LNations ER Tech1) (10:48 JBoardley R.N.) UA-Culture if indicated Urgent (11:38 11/02/2016 Noelle Grant) (Ack 11:39 LNations ER Tech1) (14:30 JBoardley R.N.) MEDICATION ORDERS: IV FLUIDS: IV NS : initial bolus none -, then 1000 mL/hr for X1 (NOW) (10:26 11/02/2016 Noelle Grant) (Ack 10:28 JBoardley R.N.) (10:48 JBoardley R.N.) IV NS : initial bolus none -, then 1000 mL/hr for X1 (NOW) (11:47 11/02/2016 Noelel Grant) (11:54 JBoardley R.N.) IV NS : initial bolus none -, then 1000 mL/hr for X1 (NOW) (13:22 11/02/2016 JBoardley R.N. verbal order read back to Noelle Grant) (13:23 JBoardley R.N.) Ceftriaxone IV 1 gm/50mL (NOW) (15:24 11/02/2016 Noelle Grant) (15:28 JBoardley R.N.) Not a true PCN allergy ORDER SHEET NOTES: [Electronically signed by Luis Myers R.N. (17:35 11/02/2016)] [Electronically signed by Franky hCaves Dr. (22:21 11/02/2016)] [Electronically locked/signed by Luis Myers R.N. (17:35 11/02/2016)]
--- NOTE | 2016-11-02 15:15 | ED ORDER SUMMARY ---
..... 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 OrderSheet [facility] VisitID: [id number] [place] [address] 56y, M Registration Date/Time: 11/02/2016 ORDER SHEET Weight: 73.4 kg (stated) Allergies: Copaxone, Penicillins, Pt/ state amoxicillin is okay; PCN allergy as baby., Quinolones GENERAL ORDERS: CBC w Diff Urgent (10:26 11/02/2016 Noelle Grant) (Ack 10:40 LNations ER Tech1) (10:48 JBoardley R.N.) CMP Urgent (10:26 11/02/2016 Noelle Grant) (Ack 10:40 LNations ER Tech1) (10:48 JBoardley R.N.) UA-Culture if indicated Urgent (11:38 11/02/2016 Noelle Grant) (Ack 11:39 LNations ER Tech1) (14:30 JBoardley R.N.) MEDICATION ORDERS: IV FLUIDS: IV NS : initial bolus none -, then 1000 mL/hr for X1 (NOW) (10:26 11/02/2016 Noelle Grant) (Ack 10:28 JBoardley R.N.) (10:48 JBoardley R.N.) IV NS : initial bolus none -, then 1000 mL/hr for X1 (NOW) (11:47 11/02/2016 Noelle Grant) (11:54 JBoardley R.N.) IV NS : initial bolus none -, then 1000 mL/hr for X1 (NOW) (13:22 11/02/2016 JBoardley R.N. verbal order read back to Noelle Grant) (13:23 JBoardley R.N.) Ceftriaxone IV 1 gm/50mL (NOW) (15:24 11/02/2016 Noelle Grant) (15:28 JBoardley R.N.) Not a true PCN allergy ORDER SHEET NOTES: [Electronically signed by Luis Myers R.N. (17:35 11/02/2016)] [Electronically signed by Franky Chaevs Dr. (22:21 11/02/2016)] [Electronically locked/signed by Luis Myers R.N. (17:35 11/02/2016)]
--- NOTE | 2016-11-02 15:15 | ED NURSING NOTES ---
Clinical Report - Nurses [facility] [address] [place] [address] 11/02/2016 9:53 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 Triage time 09:55. Acuity: LEVEL 3. Chief Complaint: (Weakness). 09:57 11/02/16. 09:57 11/02/16. Alert. No acute distress. SEPSIS SCREEN: Sepsis Screen. Negative (no infection suspected/documented). MIGUEL COMA SCORE: Miguel Coma Scale: 15- eyes open spontaneously (4); best verbal response- oriented x 4 (5); best motor response- obeys commands (6). --09:59 Luis Myers R.N. 09:56 11/02/16. BP: 150/102. HR: 116. RR: 20. O2 saturation: 98% on room air. Temp: 98.2 F (oral). Pain level now: 11/23. --09:59 Luis Myers R.N. ( Pt states he has been having night sweats and was recently diagnosed with bronchitis. Pt states he is out of his abx and is not feeling better.). --10:00 Luis Myers R.N. Weight: 73.4 kg stated. Height/Length: 70 inches Per Patient. BMI: 23.2. --09:56 Luis Myers R.N. Medications Aspirin Oral (Tablet 325 mg) 1 tablet. Baclofen Oral 20 mg, every 5 hrs . Dantrolene Sodium Oral 50mg , 3 x daily. Dilaudid Oral (Tablet 8 mg), PRN. FLUoxetine HCl Oral 20 mg, daily. Morphine Sulfate Oral 30 mg ER, 3x a day. Neurontin Oral 800mg, BID. Oxybutynin Chloride Oral 5 mg, 3x a day. TiZANidine HCl Oral 4 mg, every 5 hrs. --09:58 Luis Myers R.N. Allergies Copaxone. Definite Severe(rash) Penicillins. Probable Moderate(rash) Pt/ state amoxicillin is okay; PCN allergy as baby.. Quinolones. --09:58 Luis Myers R.N. History Arrived by EMS, and accompanied by (caregiver). Primary physician ([facility]). 09:57 11/02/16. Treatment TREE SCOUT: None. PAST MEDICAL HX: Immunizations: up-to-date. SOCIAL HX: Never smoker. No alcohol use or drug use. FALL RISK ASSESSMENT: Fall risk assessment completed. No fall risk identified. NUTRITIONAL RISK ASSESSMENT: The nutritional risk assessment revealed no deficiencies. FUNCTIONAL ASSESSMENT: Functional assessment: no impairments noted. LEARNING NEEDS ASSESSMENT: The learning needs assessment revealed no barriers. SKIN INTEGRITY ASSESSMENT: Skin integrity risk assessment completed. No skin integrity risk identified. --09:59 Luis Myers R.N. SOCIAL HX: No infectious disease exposure. ABUSE ASSESSMENT: No report of abuse. --09:59 Luis Myers R.N. Treatment TREE SCOUT: See EMS report. BP: 132 palp. HR: 122. RR: 18. --10:01 Luis Myers R.N. PROBLEMS: Bronchitis. Laceration. Pharyngitis. Suprapubic cath. Hypotension. Nausea. Dehydration. Acute Pain. Pulmonary Embolism. Hypertension. Daly Catheter Replacement. Hypokalemia. Leukocytosis. Wound Dehiscence. Urinary Retention. Nephrolithiasis. Vomiting. Immunizations. UTI - Urinary Tract Infection. Abdominal Pain. Bowel Obstruction. Multiple Sclerosis. --09:58 Luis Myers R.N. ADDITIONAL SURGERIES: Abdominal surgery to close a hole that had burrowed to his indwelling catheter. Appendectomy. Colonoscopy. Colostomy. Shoulder Surgery. Suprapubic cystostomy. --09:58 Luis Myers R.N. Assessment 09:57 11/02/16. --09:59 Luis Myers R.N. Interventions 09:57 11/02/16. 09:57 11/02/16. ID and allergy band on patient. To treatment room. --09:59 Luis Myers R.N. PHYSICAL ASSESSMENT 09:59 11/02/16. To room via stretcher. GENERAL / NEURO / PSYCH: Decreased awareness (MS patient). CVS: Capillary refill less than 2 seconds. SKIN: Skin is warm and dry. --09:59 Luis Myers R.N. NURSING PROGRESS NOTES 10:00 11/02/16. The plan of care for this patient has been created. Pulse oximeter and NIBP monitor placed on patient; monitor alarms on. Patient gowned. Head of bed elevated. Two patient identifiers checked. Call light placed in reach. Side rails up x 2. Bed placed in lowest position. Brakes of bed on. --10:00 Luis Myers R.N. 10:00 11/02/16. Patient ready for evaluation- chart flagged and notification provided. --10:00 Luis Myers R.N. 10:10 11/02/16. --10:10 Luis Myers R.N. 10:09 11/02/16. BP: 141/91. HR: 114. RR: 18. O2 saturation: 99% on room air. --10:10 Luis Myers R.N. 10:10 11/02/16. ( Repostioned patient, partial bed bath completed). --10:10 Luis Myers R.N. 10:48 11/02/2016 Site #1 started via IV in the right hand with an 22g angiocath, with aseptic technique; one attempt. Blood drawn: rainbow set. Labeled in the presence of the patient and sent to the lab. Saline lock flushed with 10 mL saline. --10:48 Luis Myers R.N. 10:48 11/02/2016 Started bag #1 1000 mL IV Fluids IV NS (Saline); at 1000 mL/hr over 1 hour(s) via site #1. Allergies verified and confirmed 5 rights. IV patency established. IV site checked: no pain, redness, or swelling. IV flushed thoroughly pre- and post-medication administration. Completed per protocol. --10:48 Luis Myers R.N. 10:48 11/02/16. BP: 141/91. HR: 105. RR: 18. O2 saturation: 98% on room air. --10:49 Luis Myers R.N. 10:49 11/02/16. --10:49 Luis Myers R.N. 10:49 11/02/16. Temp: 97.9 F (oral). --10:49 Luis Myers R.N. 10:49 11/02/16. --10:49 Luis Myers R.N. 11:50 11/02/2016 IV Fluids IV NS Discontinued: bag #1 infused. Total amount infused: 1000 mL. IV patency established. IV site checked: no pain, redness, or swelling. IV flushed thoroughly. --11:55 Luis Myers R.N. <<STRICKEN ENTRY-- 11:54 11/02/2016 Started bag #1 1000 mL IV Fluids IV NS (Saline); at 1000 mL/hr over 1 hour(s) via site #1. Allergies verified and confirmed 5 rights. IV patency established. IV site checked: no pain, redness, or swelling. IV flushed thoroughly pre- and post-medication administration. Completed per protocol. --11:54 Luis Myers R.N. --END STRIKE>> Correction. --11:55 Luis Myers R.N. 11:54 11/02/2016 Started bag #2 1000 IV Fluids IV NS (Saline); at 1000 mL/hr over 1 hour(s) via site #1. Allergies verified and confirmed 5 rights. IV patency established. IV site checked: no pain, redness, or swelling. IV flushed thoroughly pre- and post-medication administration. Completed per protocol. --11:55 Luis Myers R.N. 11:56 11/02/16. ( Need urine sample, daly clamped, repositioned patient from left to right side). --11:56 Luis Myers R.N. 11:58 11/02/16. BP: 106/74. HR: 78. RR: 16. O2 saturation: 98% on room air. Temp: 98.1 F (oral). --11:58 Luis Myers R.N. 11:58 11/02/16. --11:58 Luis Myers R.N. 13:20 11/02/16. BP: 108/76. HR: 75. RR: 15. O2 saturation: 99% on room air. --13:20 Luis Myers R.N. 13:12 11/02/2016 IV Fluids IV NS Discontinued: bag #2 infused. Total amount infused: 1000 mL. IV patency established. IV site checked: no pain, redness, or swelling. IV flushed thoroughly. --13:22 Luis Myers R.N. 13:18 11/02/2016 Started bag #1 1000 mL IV Fluids IV NS (Saline); at 1000 mL/hr over 1 hour(s) via site #1. Allergies verified and confirmed 5 rights. IV patency established. IV site checked: no pain, redness, or swelling. IV flushed thoroughly pre- and post-medication administration. Completed per protocol. --13:23 Luis Myers R.N. 13:11/02/16. --13:20 Luis Myers R.N. 13:11/02/16. ( Repositioned patient, bladder scanned patient and only 65mLs noted after bladder scanning, notified, ordered additional liter). --13:22 Luis Myers R.N. 13:11/02/16. --13:30 Luis Myers R.N. 13:11/02/16. BP: 125/78. HR: 71. RR: 14. O2 saturation: 99% on room air. --13:30 Luis Myers R.N. 14:30 11/02/2016 IV Fluids IV NS Discontinued: bag #3 infused upon discharge. Total amount infused: 1000 mL. IV patency established. IV site checked: no pain, redness, or swelling. IV flushed thoroughly. --14:30 Luis Myers R.N. 14:11/02/16. --14:31 Luis Myers R.N. 14:11/02/16. BP: 115/82. HR: 66. RR: 14. O2 saturation: 98% on room air. Temp: 98.1 F (oral). --14:31 Luis Myers R.N. 14:11/02/16. ( UOP is increasing). --14:31 Luis Myers R.N. 14:44 11/02/16. ( Repostioned patient every hours since pt has been in ER). --14:44 Luis Myers R.N. 15:28 11/02/2016 Started 1 gm of Ceftriaxone IVPB in bag #1 50 mL; at 100 mL/hr over 20 minute(s) via site #1; Allergies verified and confirmed 5 rights. IV patency established. IV site checked: no pain, redness, or swelling. IV flushed thoroughly pre- and post-medication administration. Completed per protocol. --15:28 Luis Myers R.N. 15:35 11/02/16. ( Pt to be DC'd will require ambulance transfer home, [facility] [place] transfer). --15:35 Luis Myers R.N. 15:41 11/02/2016 Site #1 removed upon discharge. Catheter intact. --15:41 Luis Myers R.N. 15:41 11/02/2016 Ceftriaxone IVPB Discontinued: infused. Total amount infused: 50 mL. IV patency established. IV site checked: no pain, redness, or swelling. IV flushed thoroughly. --15:41 Luis Myers R.N. 16:00 11/02/16. ( Waiting for transport back to [facility] residence via ambulance). --16:00 Luis Myers R.N. DISPOSITION / DISCHARGE 15:42 11/02/16. Condition at departure: improved. The goals identified in the patient's plan of care were met. No learning barriers present. Discharge instructions provided and reviewed with the caregiver and patient. Reviewed warnings. Reviewed medication(s). Treatments reviewed. Patient verbalized understanding. Written instructions provided in Khmer. Caregiver verbalized understanding. The patient was discharged by the physician. He was discharged home and accompanied by family. He left the Emergency Department via ambulance and on a stretcher. 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 FALL RISK ASSESSMENT: Fall risk assessment completed. No fall risk identified. --15:42 Luis Myers R.N. 15:42 11/02/16. --15:42 Luis Myers R.N. 15:42 11/02/16. BP: 118/72. HR: 83. RR: 15. O2 saturation: 98% on room air. Temp: 98.2 F (oral). --15:42 Luis Myers R.N. 16:38 11/02/16. Transported via ambulance by nurse and EMS. Report was given. --16:38 Luis Myers R.N. Departure time: 1638. --17:34 Luis Myers R.N. Locked/Released at 11/02/2016 17:35 by Luis Myers R.N.
--- NOTE | 2016-11-02 15:15 | ED NURSING NOTES ---
Clinical Report - Nurses [facility] [address] [place] [address] 11/02/2016 9:53 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 [facility] [id number] TRIAGE Triage time 09:55. Acuity: LEVEL 3. Chief Complaint: (Weakness). 09:57 11/02/16. 09:57 11/02/16. Alert. No acute distress. SEPSIS SCREEN: Sepsis Screen. Negative (no infection suspected/documented). MIGUEL COMA SCORE: Miguel Coma Scale: 15- eyes open spontaneously (4); best verbal response- oriented x 4 (5); best motor response- obeys commands (6). --09:59 Luis Myers R.N. 09:56 11/02/16. BP: 150/102. HR: 116. RR: 20. O2 saturation: 98% on room air. Temp: 98.2 F (oral). Pain level now: 11/23. --09:59 Luis Myers R.N. ( Pt states he has been having night sweats and was recently diagnosed with bronchitis. Pt states he is out of his abx and is not feeling better.). --10:00 Luis Myers R.N. Weight: 73.4 kg stated. Height/Length: 70 inches Per Patient. BMI: 23.2. --09:56 Luis Myers R.N. Medications Aspirin Oral (Tablet 325 mg) 1 tablet. Baclofen Oral 20 mg, every 5 hrs . Dantrolene Sodium Oral 50mg , 3 x daily. Dilaudid Oral (Tablet 8 mg), PRN. FLUoxetine HCl Oral 20 mg, daily. Morphine Sulfate Oral 30 mg ER, 3x a day. Neurontin Oral 800mg, BID. Oxybutynin Chloride Oral 5 mg, 3x a day. TiZANidine HCl Oral 4 mg, every 5 hrs. --09:58 Luis Myers R.N. Allergies Copaxone. Definite Severe(rash) Penicillins. Probable Moderate(rash) Pt/ state amoxicillin is okay; PCN allergy as baby.. Quinolones. --09:58 Luis Myers R.N. History Arrived by EMS, and accompanied by (caregiver). Primary physician ([facility]). 09:57 11/02/16. Treatment SUPERVISOR CONTINGENTS: None. PAST MEDICAL HX: Immunizations: up-to-date. SOCIAL HX: Never smoker. No alcohol use or drug use. FALL RISK ASSESSMENT: Fall risk assessment completed. No fall risk identified. NUTRITIONAL RISK ASSESSMENT: The nutritional risk assessment revealed no deficiencies. FUNCTIONAL ASSESSMENT: Functional assessment: no impairments noted. LEARNING NEEDS ASSESSMENT: The learning needs assessment revealed no barriers. SKIN INTEGRITY ASSESSMENT: Skin integrity risk assessment completed. No skin integrity risk identified. --09:59 Luis Myers R.N. SOCIAL HX: No infectious disease exposure. ABUSE ASSESSMENT: No report of abuse. --09:59 Luis Myers R.N. Treatment SUPERVISOR CONTINGENTS: See EMS report. BP: 132 palp. HR: 122. RR: 18. --10:01 Luis Myers R.N. PROBLEMS: Bronchitis. Laceration. Pharyngitis. Suprapubic cath. Hypotension. Nausea. Dehydration. Acute Pain. Pulmonary Embolism. Hypertension. Daly Catheter Replacement. Hypokalemia. Leukocytosis. Wound Dehiscence. Urinary Retention. Nephrolithiasis. Vomiting. Immunizations. UTI - Urinary Tract Infection. Abdominal Pain. Bowel Obstruction. Multiple Sclerosis. --09:58 Luis Myers R.N. ADDITIONAL SURGERIES: Abdominal surgery to close a hole that had burrowed to his indwelling catheter. Appendectomy. Colonoscopy. Colostomy. Shoulder Surgery. Suprapubic cystostomy. --09:58 Luis Myers R.N. Assessment 09:57 11/02/16. --09:59 Luis Myers R.N. Interventions 09:57 11/02/16. 09:57 11/02/16. ID and allergy band on patient. To treatment room. --09:59 Luis Myers R.N. PHYSICAL ASSESSMENT 09:59 11/02/16. To room via stretcher. GENERAL / NEURO / PSYCH: Decreased awareness (MS patient). CVS: Capillary refill less than 2 seconds. SKIN: Skin is warm and dry. --09:59 Luis Myers R.N. NURSING PROGRESS NOTES 10:00 11/02/16. The plan of care for this patient has been created. Pulse oximeter and NIBP monitor placed on patient; monitor alarms on. Patient gowned. Head of bed elevated. Two patient identifiers checked. Call light placed in reach. Side rails up x 2. Bed placed in lowest position. Brakes of bed on. --10:00 Luis Myers R.N. 10:00 11/02/16. Patient ready for evaluation- chart flagged and notification provided. --10:00 Luis Myers R.N. 10:10 11/02/16. --10:10 Luis Myers R.N. 10:09 11/02/16. BP: 141/91. HR: 114. RR: 18. O2 saturation: 99% on room air. --10:10 Luis Myers R.N. 10:10 11/02/16. ( Repostioned patient, partial bed bath completed). --10:10 Luis Myers R.N. 10:48 11/02/2016 Site #1 started via IV in the right hand with an 22g angiocath, with aseptic technique; one attempt. Blood drawn: rainbow set. Labeled in the presence of the patient and sent to the lab. Saline lock flushed with 10 mL saline. --10:48 Luis Myers R.N. 10:48 11/02/2016 Started bag #1 1000 mL IV Fluids IV NS (Saline); at 1000 mL/hr over 1 hour(s) via site #1. Allergies verified and confirmed 5 rights. IV patency established. IV site checked: no pain, redness, or swelling. IV flushed thoroughly pre- and post-medication administration. Completed per protocol. --10:48 Luis Myers R.N. 10:48 11/02/16. BP: 141/91. HR: 105. RR: 18. O2 saturation: 98% on room air. --10:49 Luis Myers R.N. 10:49 11/02/16. --10:49 Luis Myers R.N. 10:49 11/02/16. Temp: 97.9 F (oral). --10:49 Luis Myers R.N. 10:49 11/02/16. --10:49 Luis Myers R.N. 11:50 11/02/2016 IV Fluids IV NS Discontinued: bag #1 infused. Total amount infused: 1000 mL. IV patency established. IV site checked: no pain, redness, or swelling. IV flushed thoroughly. --11:55 Luis Myers R.N. <<STRICKEN ENTRY-- 11:54 11/02/2016 Started bag #1 1000 mL IV Fluids IV NS (Saline); at 1000 mL/hr over 1 hour(s) via site #1. Allergies verified and confirmed 5 rights. IV patency established. IV site checked: no pain, redness, or swelling. IV flushed thoroughly pre- and post-medication administration. Completed per protocol. --11:54 Luis Myers R.N. --END STRIKE>> Correction. --11:55 Luis Myers R.N. 11:54 11/02/2016 Started bag #2 1000 IV Fluids IV NS (Saline); at 1000 mL/hr over 1 hour(s) via site #1. Allergies verified and confirmed 5 rights. IV patency established. IV site checked: no pain, redness, or swelling. IV flushed thoroughly pre- and post-medication administration. Completed per protocol. --11:55 Luis Myers R.N. 11:56 11/02/16. ( Need urine sample, daly clamped, repositioned patient from left to right side). --11:56 Luis Myers R.N. 11:58 11/02/16. BP: 106/74. HR: 78. RR: 16. O2 saturation: 98% on room air. Temp: 98.1 F (oral). --11:58 Luis Myers R.N. 11:58 11/02/16. --11:58 Luis Myers R.N. 13:20 11/02/16. BP: 108/76. HR: 75. RR: 15. O2 saturation: 99% on room air. --13:20 Luis Myers R.N. 13:12 11/02/2016 IV Fluids IV NS Discontinued: bag #2 infused. Total amount infused: 1000 mL. IV patency established. IV site checked: no pain, redness, or swelling. IV flushed thoroughly. --13:22 Luis Myers R.N. 13:18 11/02/2016 Started bag #1 1000 mL IV Fluids IV NS (Saline); at 1000 mL/hr over 1 hour(s) via site #1. Allergies verified and confirmed 5 rights. IV patency established. IV site checked: no pain, redness, or swelling. IV flushed thoroughly pre- and post-medication administration. Completed per protocol. --13:23 Luis Myers R.N. 13:11/02/16. --13:20 Luis Myers R.N. 13:11/02/16. ( Repositioned patient, bladder scanned patient and only 65mLs noted after bladder scanning, notified, ordered additional liter). --13:22 Luis Myers R.N. 13:11/02/16. --13:30 Luis Myers R.N. 13:11/02/16. BP: 125/78. HR: 71. RR: 14. O2 saturation: 99% on room air. --13:30 Luis Myers R.N. 14:30 11/02/2016 IV Fluids IV NS Discontinued: bag #3 infused upon discharge. Total amount infused: 1000 mL. IV patency established. IV site checked: no pain, redness, or swelling. IV flushed thoroughly. --14:30 Luis Myers R.N. 14:11/02/16. --14:31 Luis Myers R.N. 14:11/02/16. BP: 115/82. HR: 66. RR: 14. O2 saturation: 98% on room air. Temp: 98.1 F (oral). --14:31 Luis Myers R.N. 14:11/02/16. ( UOP is increasing). --14:31 Luis Myers R.N. 14:44 11/02/16. ( Repostioned patient every hours since pt has been in ER). --14:44 Luis Myers R.N. 15:28 11/02/2016 Started 1 gm of Ceftriaxone IVPB in bag #1 50 mL; at 100 mL/hr over 20 minute(s) via site #1; Allergies verified and confirmed 5 rights. IV patency established. IV site checked: no pain, redness, or swelling. IV flushed thoroughly pre- and post-medication administration. Completed per protocol. --15:28 Luis Myers R.N. 15:35 11/02/16. ( Pt to be DC'd will require ambulance transfer home, [facility] [place] up transfer). --15:35 Luis Myers R.N. 15:41 11/02/2016 Site #1 removed upon discharge. Catheter intact. --15:41 Luis Myers R.N. 15:41 11/02/2016 Ceftriaxone IVPB Discontinued: infused. Total amount infused: 50 mL. IV patency established. IV site checked: no pain, redness, or swelling. IV flushed thoroughly. --15:41 Luis Myers R.N. 16:00 11/02/16. ( Waiting for transport back to [facility] via ambulance). --16:00 Luis Myers R.N. DISPOSITION / DISCHARGE 15:42 11/02/16. Condition at departure: improved. The goals identified in the patient's plan of care were met. No learning barriers present. Discharge instructions provided and reviewed with the caregiver and patient. Reviewed warnings. Reviewed medication(s). Treatments reviewed. Patient verbalized understanding. Written instructions provided in Irish. Caregiver verbalized understanding. The patient was discharged by the physician. He was discharged home and accompanied by family. He left the Emergency Department via ambulance and on a stretcher. 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 FALL RISK ASSESSMENT: Fall risk assessment completed. No fall risk identified. --15:42 Luis Myers R.N. 15:42 11/02/16. --15:42 Luis Myers R.N. 15:42 11/02/16. BP: 118/72. HR: 83. RR: 15. O2 saturation: 98% on room air. Temp: 98.2 F (oral). --15:42 Luis Myers R.N. 16:38 11/02/16. Transported via ambulance by nurse and EMS. Report was given. --16:38 Luis Myers R.N. Departure time: 1638. --17:34 Luis Myers R.N. Locked/Released at 11/02/2016 17:35 by Luis Myers R.N.
--- NOTE | 2016-11-02 22:21 | ED MED RECONCILIATION SUMMARY ---
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 Medication Reconciliation Report [facility]: [id number] [address] [place] [address] 56y, M Registration Date/Time: 11/02/2016 Weight: 73.4 kg Height/Length: 70 in. BMI: 23.2 ALLERGIES: Copaxone, Penicillins, Pt/ state amoxicillin is okay; PCN allergy as baby., Quinolones The patient's Home Medications are listed below: CONTINUE TAKING THE FOLLOWING MEDICATIONS: Aspirin Oral (325 mg) 1 tablet Baclofen Oral 20 mg, every 5 hrs Dantrolene Sodium Oral 50mg , 3 x daily Dilaudid Oral (8 mg), PRN FLUoxetine HCl Oral 20 mg, daily Morphine Sulfate Oral 30 mg ER, 3x a day Neurontin Oral 800mg, BID Oxybutynin Chloride Oral 5 mg, 3x a day TiZANidine HCl Oral 4 mg, every 5 hrs The source(s) of the original Home Medication information: Not obtained. The following Medications were given to the patient in the Emergency Department: IV NS IV Fluids bolus 0, then 1000 mL/hr, administered: 11/02/2016 10:48:00 AM IV NS IV Fluids bolus 0, then 1000 mL/hr, administered: 11/02/2016 11:54:00 AM IV NS IV Fluids bolus 0, then 1000 mL/hr, administered: 11/02/2016 1:18:00 PM Ceftriaxone [IVPB] IVPB bolus 0, then 1 gm 100 mL/hr, administered: 11/02/2016 3:28:00 PM The following Medications were prescribed to the patient: Cefixime 400 mg: take 1 tab orally every day for 7 days. No refill. -- Franky Chaves Dr. [place] nasal spray: 2 sprays to each nostril daily. Dispense one (1) unit. No refills. Substitution is permissible -- Franky Chaves Dr.
--- NOTE | 2016-11-02 22:21 | ED MAR SUMMARY ---
..... Medication Administration Record [facility] [address] [place] [address] 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 Visit ID: [id number] 56y, M Weight: 73.4 kg Height/Length: 70 in BMI: 23.2 ALLERGIES: Copaxone, Penicillins, Pt/ state amoxicillin is okay; PCN allergy as baby., Quinolones Start 10:48 11/02/2016 Luis Myers R.N., Stop 11:50 11/02/2016 Luis Myers R.N. Medication Administered: IV NS (SALINE), Dose: IV Fluids over 1 hour(s), Rate: 1000 mL/hr, Dispensed: 1000 mL bag, Site: #1 right hand. Medication Ordered: IV NS : initial bolus none -, then 1000 mL/hr for X1 (NOW). Start 11:54 11/02/2016 Luis Myers R.N., Stop 13:12 11/02/2016 Luis Myers R.N. Medication Administered: IV NS (SALINE), Dose: IV Fluids over 1 hour(s), Rate: 1000 mL/hr, Dispensed: 1000 mL bag, Site: #1 right hand. Medication Ordered: IV NS : initial bolus none -, then 1000 mL/hr for X1 (NOW). Start 13:18 11/02/2016 Luis Myers R.N., Stop 14:30 11/02/2016 Luis Myers R.N. Medication Administered: IV NS (SALINE), Dose: IV Fluids over 1 hour(s), Rate: 1000 mL/hr, Dispensed: 1000 mL bag, Site: #1 right hand. Medication Ordered: IV NS : initial bolus none -, then 1000 mL/hr for X1 (NOW). Start 15:28 11/02/2016 Luis Myers R.N., Stop 15:41 11/02/2016 Luis Myers R.N. Medication Administered: CEFTRIAXONE [IVPB], Dose: 1 gm IVPB over 20 minute(s), Rate: 100 mL/hr, Dispensed: 50 mL bag, Site: #1 right hand. Medication Ordered: Ceftriaxone IV 1 gm/50mL (NOW).
--- NOTE | 2016-11-02 22:21 | ED DISCHARGE INSTRUCTIONS ---
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 Acute and recurrent frontal sinusitis INSTRUCTIONS Your Current Medications: CONTINUE TAKING THE FOLLOWING MEDICATIONS: Aspirin Oral : Tablet 325 mg, 1 tablet. Baclofen Oral : 20 mg every 5 hrs. Dantrolene Sodium Oral : 50mg 3 x daily. Dilaudid Oral : Tablet 8 mg, PRN. FLUoxetine HCl Oral : 20 mg daily. Morphine Sulfate Oral : 30 mg ER 3x a day. Neurontin Oral : 800mg BID. Oxybutynin Chloride Oral : 5 mg 3x a day. TiZANidine HCl Oral : 4 mg every 5 hrs. Prescription Medications: Cefixime 400 mg: take 1 tab orally every day for 7 days. No refill. Flonase nasal spray: 2 sprays to each nostril daily. Dispense one (1) unit. No refills. Substitution is permissible Follow-up: Screening today revealed the patient's blood pressure to be in the pre-hypertensive range. The patient should follow up with a primary care provider for blood pressure management. ADDITIONAL INFORMATION Sinusitis [Abx Tx] The sinuses are air-filled spaces within the bones of the face. They connect to the inside of the nose. Sinusitis is an inflammation of the tissue lining the sinus cavity. Sinus inflammation can occur during a cold or hay-fever (allergies to pollens and other particles in the air) and cause symptoms of sinus congestion and fullness. A sinus infection causes fever, headache and facial pain. There is usually green or yellow drainage from the nose or into the back of the throat (post-nasal drip). Antibiotics are prescribed to treat this condition. Home Care: Drink plenty of water, hot tea, and other liquids to stay well hydrated. This thins the mucus and promotes sinus drainage. Apply heat to the painful areas of the face. Use a towel soaked in hot water. Or, nursing home assistant the shower and direct the hot spray onto your face. This is a good way to inhale warm water vapor and get heat on your face at the same time. (Cover your mouth and nose with your hands so you can still breathe as you do this.) Use a vaporizer with products such as Vicks VapoRub (contains menthol) at night. Suck on peppermint, menthol or eucalyptus hard candies during the day. An expectorant containing guaifenesin (such as Robitussin), helps to thin the mucus and promote drainage from the sinuses. Nxew-rcn-gkjtler decongestants may be used unless a similar medicine was prescribed. Nasal sprays work the fastest. Use one that contains phenylephrine (Lai-synephrine, Sinex and others) or oxymetazoline (Afrin). First blow the nose gently to remove mucus, then apply the drops. Do not use these medicines more often than directed on the label or for more than three days or symptoms may worsen. You may also use tablets containing pseudoephedrine (Sudafed). Many sinus remedies combine ingredients, which may increase side effects. Read the labels or ask the pharmacist for help. NOTE: Persons with high blood pressure should not use decongestants. They can raise blood pressure. Antihistamines are useful if allergies are a cause of your sinusitis. The mildest one is chlorpheniramine (available without a prescription). The dose for adults is 8-12mg three times a day. [NOTE: Do not use chlorpheniramine if you have glaucoma or if you are a man with trouble urinating due to an enlarged prostate.] Claritin (loratidine) is an antihistamine that causes less drowsiness and is a good alternative for daytime use. Do not use nasal rinses or irrigation during an acute sinus infection, unless advised by your doctor. Rinsing may spread the infection to other sinuses. You may use acetaminophen (Tylenol) or ibuprofen (Motrin, Advil) to control pain, unless another pain medicine was prescribed. [ NOTE: If you have chronic liver or kidney disease or ever had a stomach ulcer, talk with your doctor before using these medicines.] (Aspirin should never be used in anyone under 18 years of age who is ill with a fever. It may cause severe liver damage.) Finish the full course, even if you are feeling better after a few days. Follow Up with your doctor or this facility in one week or as instructed by our staff if not improving. Get Prompt Medical Attention if any of the following occur: Facial pain or headache becomes more severe Stiff neck Unusual drowsiness or confusion, or not acting like your normal self Swelling of the forehead or eyelids Vision problems including blurred or double vision Fever of 100.4F (38C) or higher, or as directed by your healthcare provider Seizure Bladder Infection,Male (Adult) A bladder infection ("cystitis" or "UTI") usually causes a constant urge to urinate, and a burning when passing urine. Urine may be cloudy, smelly or dark. There may be also be pain in the lower abdomen. Cystitis in males is not common. It may be caused by a partial blockage in the urinary system that keeps the bladder from emptying completely. This is most often related to an enlarged prostate gland. Home Care: Drink lots of fluids (at least 6-8 glasses a day). This will flush the bacteria out of your bladder. Avoid sexual intercourse until your symptoms are gone. Avoid caffeine, alcohol, and spicy foods. They could irritate the bladder. A bladder infection is treated with antibiotics. You may also be given Pyridium (generic - phenazopyridine) to reduce burning with urination. This will cause urine to become a bright orange color, which can stain clothing. Follow Up with your doctor or this facility if ALL symptoms have not cleared within five days. It is important to keep your follow up appointment to discuss with your doctor the need for further tests of the urinary tract. Get Prompt Medical Attention if any of the following occur: Fever of 100.4F (38C) or higher, or as directed by your healthcare provider No improvement by the third day of treatment Increasing back or abdominal pain Repeated vomiting; unable to keep medicine down Weakness, dizziness or fainting Cefixime Oral tablet What is this medicine? CEFIXIME (sef IX eem) is a cephalosporin antibiotic. It is used to treat certain kinds of bacterial infections. It will not work for colds, flu, or other viral infections. How should I use this medicine? Take this medicine by mouth with a glass of water. Follow the directions on the prescription label. You can take it with or without food. If it upsets your stomach, take it with food. Take your medicine at regular intervals. Do not take it more often than directed. Take all of your medicine as directed even if you think your are better. Do not skip doses or stop your medicine early. Talk to your information security architect regarding the use of this medicine in children. While this drug may be prescribed for children as young as 6 months for selected conditions, precautions do apply. What side effects may I notice from receiving this medicine? Side effects that you should report to your doctor or health child caregiver as soon as possible: allergic reactions like skin rash, itching or hives, swelling of the face, lips, or tongue bloody or watery diarrhea difficulty breathing or wheezing dizziness fever pain or trouble passing urine or change in the amount of urine redness, blistering, peeling or loosening of the skin, including inside the mouth seizures unusual bleeding or bruising unusually weak or tired yellowing of the eyes or skin Side effects that usually do not require medical attention (report to your doctor or health child caregiver if they continue or are bothersome): diarrhea headache genital or anal irritation loss of appetite nausea, vomiting stomach pain, upset, or gas What may interact with this medicine? aspirin and aspirin-like medicines carbamazepine medicines that treat or prevent blood clots like warfarin What if I miss a dose? If you miss a dose, take it as soon as you can. If it is almost time for your next dose, take only that dose. Do not take double or extra doses. Where should I keep my medicine? Keep out of the reach of children. Store at room temperature between 20 and 25 degrees C (68 and 77 degrees F). Throw away any unused medicine after the expiration date. What should I tell my health care provider before I take this medicine? They need to know if you have any of these conditions: bleeding problems kidney disease stomach or intestine problems (especially colitis) an unusual or allergic reaction to cefixime, other cephalosporin or penicillin antibiotics, other foods, dyes or preservatives or trying to get breast-feeding What should I watch for while using this medicine? Tell your doctor or health child caregiver if your symptoms do not improve or if you get new symptoms. Your doctor will monitor your condition and blood work as needed. Do not treat diarrhea with over the counter products. Contact your doctor if you have diarrhea that lasts more than 2 days or if it is severe and watery. This medicine can interfere with some urine glucose and some urine ketone tests. If you use such tests, talk with your health child caregiver. If you are being treated for a sexually transmitted disease, avoid sexual contact until you have finished your treatment. Having sex can infect your sexual partner. Fluticasone Propionate Nasal spray, solution What is this medicine? FLUTICASONE (floo TIK a sone) is a corticosteroid. It helps decrease inflammation in your nose. This medicine is used to treat the symptoms of allergies like sneezing, itching, and runny or stuffy nose. How should I use this medicine? This medicine is for use in the nose. Follow the directions on your prescription label. This medicine works best if used regularly. Do not use more often than directed. Make sure that you are using your nasal spray correctly. Ask you doctor or health care provider if you have any questions. Talk to your information security architect regarding the use of this medicine in children. While this drug may be prescribed for children as young as 4 years old for selected conditions, precautions do apply. What side effects may I notice from receiving this medicine? Side effects that you should report to your doctor or health child caregiver as soon as possible: allergic reactions like skin rash, itching or hives, swelling of the face, lips, or tongue changes in vision flu-like symptoms white patches or sores in the mouth or nose Side effects that usually do not require medical attention (report to your doctor or health child caregiver if they continue or are bothersome): burning or irritation inside the nose or throat cough headache nosebleed unusual taste or smell What may interact with this medicine? ketoconazole metyrapone some medicines for HIV vaccines What if I miss a dose? If you miss a dose, use it as soon as you remember. If it is almost time for your next dose, use only that dose and continue with your regular schedule. Do not use double or extra doses. Where should I keep my medicine? Keep out of the reach of children. Store at room temperature between 15 and 30 degrees C (59 and 86 degrees F). Throw away any unused medicine after the expiration date. What should I tell my health care provider before I take this medicine? They need to know if you have any of these conditions: infection, like tuberculosis, herpes, or fungal infection recent surgery on nose or sinuses taking corticosteroid by mouth an unusual or allergic reaction to fluticasone, steroids, other medicines, foods, dyes, or preservatives or trying to get breast-feeding What should I watch for while using this medicine? Visit your doctor or health child caregiver for regular checks on your progress. Some symptoms may improve within 12 hours after starting use. Check with your doctor or health child caregiver if there is no improvement in your condition after 3 weeks of use. Do not come in contact with people who have chickenpox or the measles while you are taking this medicine. If you do, call your doctor right away. You have been given the following additional information: Sinusitis, Abx Tx Bladder Infection, Male (Adult) Cefixime Oral tablet Fluticasone Propionate Nasal spray, solution (Electronically signed by Franky Chaves Dr. 11/02/2016 22:21)
--- NOTE | 2016-11-02 22:21 | ED MED RECONCILIATION SUMMARY ---
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 BMI: 23.2 ALLERGIES: Copaxone, Penicillins, Pt/ state amoxicillin is okay; PCN allergy as baby., Quinolones The patient's Home Medications are listed below: CONTINUE TAKING THE FOLLOWING MEDICATIONS: Aspirin Oral (325 mg) 1 tablet Baclofen Oral 20 mg, every 5 hrs Dantrolene Sodium Oral 50mg , 3 x daily Dilaudid Oral (8 mg), PRN FLUoxetine HCl Oral 20 mg, daily Morphine Sulfate Oral 30 mg ER, 3x a day Neurontin Oral 800mg, BID Oxybutynin Chloride Oral 5 mg, 3x a day TiZANidine HCl Oral 4 mg, every 5 hrs The source(s) of the original Home Medication information: Not obtained. The following Medications were given to the patient in the Emergency Department: IV NS IV Fluids bolus 0, then 1000 mL/hr, administered: 11/02/2016 10:48:00 AM IV NS IV Fluids bolus 0, then 1000 mL/hr, administered: 11/02/2016 11:54:00 AM IV NS IV Fluids bolus 0, then 1000 mL/hr, administered: 11/02/2016 1:18:00 PM Ceftriaxone [IVPB] IVPB bolus 0, then 1 gm 100 mL/hr, administered: 11/02/2016 3:28:00 PM The following Medications were prescribed to the patient: Cefixime 400 mg: take 1 tab orally every day for 7 days. No refill. -- Franky Chaves Dr. [place] nasal spray: 2 sprays to each nostril daily. Dispense one (1) unit. No refills. Substitution is permissible -- Franky Chaves Dr.
--- NOTE | 2016-11-02 22:21 | ED MAR SUMMARY ---
..... Medication Administration Record [facility] [address] 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 Medication Administered: IV NS (SALINE), Dose: IV Fluids over 1 hour(s), Rate: 1000 mL/hr, Dispensed: 1000 mL bag, Site: #1 right hand. Medication Ordered: IV NS : initial bolus none -, then 1000 mL/hr for X1 (NOW). Start 11:54 11/02/2016 Luis Myers R.N., Stop 13:12 11/02/2016 Luis Myers R.N. Medication Administered: IV NS (SALINE), Dose: IV Fluids over 1 hour(s), Rate: 1000 mL/hr, Dispensed: 1000 mL bag, Site: #1 right hand. Medication Ordered: IV NS : initial bolus none -, then 1000 mL/hr for X1 (NOW). Start 13:18 11/02/2016 Luis Myers R.N., Stop 14:30 11/02/2016 Luis Myers R.N. Medication Administered: IV NS (SALINE), Dose: IV Fluids over 1 hour(s), Rate: 1000 mL/hr, Dispensed: 1000 mL bag, Site: #1 right hand. Medication Ordered: IV NS : initial bolus none -, then 1000 mL/hr for X1 (NOW). Start 15:28 11/02/2016 Luis Myers R.N., Stop 15:41 11/02/2016 Luis Myers R.N. Medication Administered: CEFTRIAXONE [IVPB], Dose: 1 gm IVPB over 20 minute(s), Rate: 100 mL/hr, Dispensed: 50 mL bag, Site: #1 right hand. Medication Ordered: Ceftriaxone IV 1 gm/50mL (NOW).
--- NOTE | 2016-11-02 22:21 | ED DISCHARGE INSTRUCTIONS ---
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 Acute and recurrent frontal sinusitis INSTRUCTIONS Your Current Medications: CONTINUE TAKING THE FOLLOWING MEDICATIONS: Aspirin Oral : Tablet 325 mg, 1 tablet. Baclofen Oral : 20 mg every 5 hrs. Dantrolene Sodium Oral : 50mg 3 x daily. Dilaudid Oral : Tablet 8 mg, PRN. FLUoxetine HCl Oral : 20 mg daily. Morphine Sulfate Oral : 30 mg ER 3x a day. Neurontin Oral : 800mg BID. Oxybutynin Chloride Oral : 5 mg 3x a day. TiZANidine HCl Oral : 4 mg every 5 hrs. Prescription Medications: Cefixime 400 mg: take 1 tab orally every day for 7 days. No refill. Flonase nasal spray: 2 sprays to each nostril daily. Dispense one (1) unit. No refills. Substitution is permissible Follow-up: Screening today revealed the patient's blood pressure to be in the pre-hypertensive range. The patient should follow up with a primary care provider for blood pressure management. ADDITIONAL INFORMATION Sinusitis [Abx Tx] The sinuses are air-filled spaces within the bones of the face. They connect to the inside of the nose. Sinusitis is an inflammation of the tissue lining the sinus cavity. Sinus inflammation can occur during a cold or hay-fever (allergies to pollens and other particles in the air) and cause symptoms of sinus congestion and fullness. A sinus infection causes fever, headache and facial pain. There is usually green or yellow drainage from the nose or into the back of the throat (post-nasal drip). Antibiotics are prescribed to treat this condition. Home Care: Drink plenty of water, hot tea, and other liquids to stay well hydrated. This thins the mucus and promotes sinus drainage. Apply heat to the painful areas of the face. Use a towel soaked in hot water. Or, carding machine operator the shower and direct the hot spray onto your face. This is a good way to inhale warm water vapor and get heat on your face at the same time. (Cover your mouth and nose with your hands so you can still breathe as you do this.) Use a vaporizer with products such as Vicks VapoRub (contains menthol) at night. Suck on peppermint, menthol or eucalyptus hard candies during the day. An expectorant containing guaifenesin (such as Robitussin), helps to thin the mucus and promote drainage from the sinuses. Zbrb-duo-ozivntz decongestants may be used unless a similar medicine was prescribed. Nasal sprays work the fastest. Use one that contains phenylephrine (Lai-synephrine, Sinex and others) or oxymetazoline (Afrin). First blow the nose gently to remove mucus, then apply the drops. Do not use these medicines more often than directed on the label or for more than three days or symptoms may worsen. You may also use tablets containing pseudoephedrine (Sudafed). Many sinus remedies combine ingredients, which may increase side effects. Read the labels or ask the pharmacist for help. NOTE: Persons with high blood pressure should not use decongestants. They can raise blood pressure. Antihistamines are useful if allergies are a cause of your sinusitis. The mildest one is chlorpheniramine (available without a prescription). The dose for adults is 8-12mg three times a day. [NOTE: Do not use chlorpheniramine if you have glaucoma or if you are a man with trouble urinating due to an enlarged prostate.] Claritin (loratidine) is an antihistamine that causes less drowsiness and is a good alternative for daytime use. Do not use nasal rinses or irrigation during an acute sinus infection, unless advised by your doctor. Rinsing may spread the infection to other sinuses. You may use acetaminophen (Tylenol) or ibuprofen (Motrin, Advil) to control pain, unless another pain medicine was prescribed. [ NOTE: If you have chronic liver or kidney disease or ever had a stomach ulcer, talk with your doctor before using these medicines.] (Aspirin should never be used in anyone under 18 years of age who is ill with a fever. It may cause severe liver damage.) Finish the full course, even if you are feeling better after a few days. Follow Up with your doctor or this facility in one week or as instructed by our staff if not improving. Get Prompt Medical Attention if any of the following occur: Facial pain or headache becomes more severe Stiff neck Unusual drowsiness or confusion, or not acting like your normal self Swelling of the forehead or eyelids Vision problems including blurred or double vision Fever of 100.4F (38C) or higher, or as directed by your healthcare provider Seizure Bladder Infection,Male (Adult) A bladder infection ("cystitis" or "UTI") usually causes a constant urge to urinate, and a burning when passing urine. Urine may be cloudy, smelly or dark. There may be also be pain in the lower abdomen. Cystitis in males is not common. It may be caused by a partial blockage in the urinary system that keeps the bladder from emptying completely. This is most often related to an enlarged prostate gland. Home Care: Drink lots of fluids (at least 6-8 glasses a day). This will flush the bacteria out of your bladder. Avoid sexual intercourse until your symptoms are gone. Avoid caffeine, alcohol, and spicy foods. They could irritate the bladder. A bladder infection is treated with antibiotics. You may also be given Pyridium (generic - phenazopyridine) to reduce burning with urination. This will cause urine to become a bright orange color, which can stain clothing. Follow Up with your doctor or this facility if ALL symptoms have not cleared within five days. It is important to keep your follow up appointment to discuss with your doctor the need for further tests of the urinary tract. Get Prompt Medical Attention if any of the following occur: Fever of 100.4F (38C) or higher, or as directed by your healthcare provider No improvement by the third day of treatment Increasing back or abdominal pain Repeated vomiting; unable to keep medicine down Weakness, dizziness or fainting Cefixime Oral tablet What is this medicine? CEFIXIME (sef IX eem) is a cephalosporin antibiotic. It is used to treat certain kinds of bacterial infections. It will not work for colds, flu, or other viral infections. How should I use this medicine? Take this medicine by mouth with a glass of water. Follow the directions on the prescription label. You can take it with or without food. If it upsets your stomach, take it with food. Take your medicine at regular intervals. Do not take it more often than directed. Take all of your medicine as directed even if you think your are better. Do not skip doses or stop your medicine early. Talk to your siding mechanic regarding the use of this medicine in children. While this drug may be prescribed for children as young as 6 months for selected conditions, precautions do apply. What side effects may I notice from receiving this medicine? Side effects that you should report to your doctor or health acute care clinical nurse specialist as soon as possible: allergic reactions like skin rash, itching or hives, swelling of the face, lips, or tongue bloody or watery diarrhea difficulty breathing or wheezing dizziness fever pain or trouble passing urine or change in the amount of urine redness, blistering, peeling or loosening of the skin, including inside the mouth seizures unusual bleeding or bruising unusually weak or tired yellowing of the eyes or skin Side effects that usually do not require medical attention (report to your doctor or health acute care clinical nurse specialist if they continue or are bothersome): diarrhea headache genital or anal irritation loss of appetite nausea, vomiting stomach pain, upset, or gas What may interact with this medicine? aspirin and aspirin-like medicines carbamazepine medicines that treat or prevent blood clots like warfarin What if I miss a dose? If you miss a dose, take it as soon as you can. If it is almost time for your next dose, take only that dose. Do not take double or extra doses. Where should I keep my medicine? Keep out of the reach of children. Store at room temperature between 20 and 25 degrees C (68 and 77 degrees F). Throw away any unused medicine after the expiration date. What should I tell my health care provider before I take this medicine? They need to know if you have any of these conditions: bleeding problems kidney disease stomach or intestine problems (especially colitis) an unusual or allergic reaction to cefixime, other cephalosporin or penicillin antibiotics, other foods, dyes or preservatives or trying to get breast-feeding What should I watch for while using this medicine? Tell your doctor or health acute care clinical nurse specialist if your symptoms do not improve or if you get new symptoms. Your doctor will monitor your condition and blood work as needed. Do not treat diarrhea with over the counter products. Contact your doctor if you have diarrhea that lasts more than 2 days or if it is severe and watery. This medicine can interfere with some urine glucose and some urine ketone tests. If you use such tests, talk with your health acute care clinical nurse specialist. If you are being treated for a sexually transmitted disease, avoid sexual contact until you have finished your treatment. Having sex can infect your sexual partner. Fluticasone Propionate Nasal spray, solution What is this medicine? FLUTICASONE (floo TIK a sone) is a corticosteroid. It helps decrease inflammation in your nose. This medicine is used to treat the symptoms of allergies like sneezing, itching, and runny or stuffy nose. How should I use this medicine? This medicine is for use in the nose. Follow the directions on your prescription label. This medicine works best if used regularly. Do not use more often than directed. Make sure that you are using your nasal spray correctly. Ask you doctor or health care provider if you have any questions. Talk to your siding mechanic regarding the use of this medicine in children. While this drug may be prescribed for children as young as 4 years old for selected conditions, precautions do apply. What side effects may I notice from receiving this medicine? Side effects that you should report to your doctor or health acute care clinical nurse specialist as soon as possible: allergic reactions like skin rash, itching or hives, swelling of the face, lips, or tongue changes in vision flu-like symptoms white patches or sores in the mouth or nose Side effects that usually do not require medical attention (report to your doctor or health acute care clinical nurse specialist if they continue or are bothersome): burning or irritation inside the nose or throat cough headache nosebleed unusual taste or smell What may interact with this medicine? ketoconazole metyrapone some medicines for HIV vaccines What if I miss a dose? If you miss a dose, use it as soon as you remember. If it is almost time for your next dose, use only that dose and continue with your regular schedule. Do not use double or extra doses. Where should I keep my medicine? Keep out of the reach of children. Store at room temperature between 15 and 30 degrees C (59 and 86 degrees F). Throw away any unused medicine after the expiration date. What should I tell my health care provider before I take this medicine? They need to know if you have any of these conditions: infection, like tuberculosis, herpes, or fungal infection recent surgery on nose or sinuses taking corticosteroid by mouth an unusual or allergic reaction to fluticasone, steroids, other medicines, foods, dyes, or preservatives or trying to get breast-feeding What should I watch for while using this medicine? Visit your doctor or health acute care clinical nurse specialist for regular checks on your progress. Some symptoms may improve within 12 hours after starting use. Check with your doctor or health acute care clinical nurse specialist if there is no improvement in your condition after 3 weeks of use. Do not come in contact with people who have chickenpox or the measles while you are taking this medicine. If you do, call your doctor right away. You have been given the following additional information: Sinusitis, Abx Tx Bladder Infection, Male (Adult) Cefixime Oral tablet Fluticasone Propionate Nasal spray, solution (Electronically signed by Franky Chaves Dr. 11/02/2016 22:21)
== END 2016-11-02 16:38 | disposition home or self-care (01) ==
LOC: ED SRH 09:52
DX: T83.511A Infection and inflammatory reaction due to indwelling urethral catheter, initial encounter (principal); N30.00 Acute cystitis without hematuria; J01.11 Acute recurrent frontal sinusitis; I10 Essential (primary) hypertension; Z79.82 Long term (current) use of aspirin; Z79.899 Other long term (current) drug therapy; Z88.0 Allergy status to penicillin; Z88.8 Allergy status to other drugs, medicaments and biological substances
CPT/HCPCS: 90004; 90100; 90148; 90469; 95059